=== PATIENT | male | born 1945 | race Caucasian/White ===

== ENCOUNTER 2022-03-12 08:51 | Outpatient (CLI) | payer MEDICARE, BC, SELFPAY ==
--- NOTE | 2022-03-12 09:15 | CRLHL7_ITS ---
For Patients: As a result of the Century Cures Act, medical imaging exams and procedure reports are released immediately into your electronic medical record. You may view this report before your referring provider. If you have questions, please contact your health care provider. INDICATION: Spondylolisthesis. TECHNIQUE : Lumbar spine MRI without contrast. The following sequences were obtained: Sagittal T1, T2 weighted and STIR sequences. Axial T1 and T2 weighted sequences. COMPARISON: None. FINDINGS : Five lumbar type vertebral bodies, with the last fully formed disc space designated as L5-S1. L1 chronic superior endplate compression fracture with moderate height loss. Bony bridging along the T12-L1 interspace. No recent compression fracture or marrow replacing process. Lower cord/conus signal is normal. The conus terminates at a normal location. No intradural lesion. Mild fatty atrophy of the posterior paraspinous muscles. Discs/Endplates: At L5-S1, mild disc height loss and disc desiccation. L1-2 thru L4-5, disc dehydration. Mild type 1 reactive marrow changes involving the anterior inferior L4 endplate. Findings at individual levels as follows: T12-L1: Mild disc bulge with slight underlying retropulsion results in thecal sac flattening. No spinal canal or neural foraminal stenosis. L1-2: Trace retrolisthesis. Mild disc bulge. No spinal canal or neural foraminal stenosis. L2-3: Mild disc bulge. No spinal canal or foraminal stenosis. L3-4: Mild disc bulge. No spinal canal or neural foraminal stenosis. L4-5: Mild disc bulge. Bilateral facet arthrosis. Mild bilateral neural foraminal stenosis. No spinal canal stenosis. L5-S1: Trace anterolisthesis. Mild disc bulge with overlying osteophytic ridging. Bilateral L5 pars defects. Mild bilateral neural foraminal stenosis. No spinal canal stenosis. Imaged SI joints: Bilateral arthrosis with joint space narrowing and anterior osteophyte formation. Imaged sacrum: Within normal limits. IMPRESSION: 1. L1 chronic superior endplate fracture with moderate height loss and ankylosis along the T12-L1 interspace. No recent compression fractures. 2. At L5-S1, trace anterolisthesis from chronic bilateral L5 pars defects. Mild bilateral neural foraminal stenosis. 3. No spinal canal/neural foraminal stenosis or impingement of neural structures elsewhere. Dictated by Tin Cintron MD @ 03/12/2022 2:53:10 PM (Electronically Signed)
== END 2022-03-12 08:52 | disposition home or self-care (01) ==
LOC: MRI 08:52
PROVIDERS: PCP Student in an Organized Health Care Education/Training Program; Visit Provider Student in an Organized Health Care Education/Training Program
DX: M43.16 Spondylolisthesis, lumbar region (principal); M51.25 Other intervertebral disc displacement, thoracolumbar region; M51.26 Other intervertebral disc displacement, lumbar region; M48.07 Spinal stenosis, lumbosacral region
CPT/HCPCS: 72148

== ENCOUNTER 2022-10-11 15:58 | Emergency (ER) | payer MEDICARE, BC, SELFPAY ==
[2022-10-11 16:07] VITALS: BP 153/91; PULSE 66; RESP 18; TEMP 36.6; O2SAT 96; BMI 44.6
--- NOTE | 2022-10-11 16:49 | CRLHL7_ITS ---
For Patients: As a result of the Cures Act, medical imaging exams and procedure reports are released immediately into your electronic medical record. You may view this report before your referring provider. If you have questions, please contact your health care provider. Indication: Table saw injury. Technique: Three views of the left hand. Comparison: None Findings/Impression: Comminuted tuft fractures of the 3rd and 4th digit distal phalanges. There are soft tissue defects compatible with lacerations at the tips of the 2nd and 3rd digits, and partial amputation of the tip of the 4th digit. Dictated by Jane May MD @ 10/11/2022 6:07:50 PM (Electronically Signed)
--- NOTE | 2022-10-11 17:34 | ED_ITS ---
HPI - General Adult General Chief complaint: Extremity Pain/Injury, Upper Stated complaint: Table saw injury to left hand 30mins ago Time Seen by Provider: 10/11/22 16:01 Source: patient Mode of arrival: ambulatory Limitations: no limitations History of Present Illness HPI narrative: 76-year-old male coming in today after signing off the tips of his fingers with a table saw. Denies any other injury. This occurred approximately 30 minutes prior to presentation. Tetanus shot is up-to-date. Patient is on Coumadin. Related Data Previous Rx's Medication Instructions Recorded amoxicillin 875 mg-potassium 1 tab PO BID #10 tabs 10/11/22 clavulanate 125 mg tablet Allergies Allergy/AdvReac Type Severity Reaction Status Date / Time ibuprofen Allergy Intermediate Hives Verified 10/11/22 16:25 phenytoin Allergy Mild Rash Verified 10/11/22 16:25 buspirone [From BuSpar] AdvReac Intermediate Blurry Verified 10/11/22 16:25 Vision citalopram AdvReac Intermediate Dizziness Verified 10/11/22 16:25 lisinopril AdvReac Intermediate Verified 10/11/22 16:25 metformin AdvReac Intermediate Diarrhea Verified 10/11/22 16:25 Review of Systems Status of ROS: Reports: 10 or more systems reviewed and unremarkable except as noted in History and below PFSH PFSH Social History Smoking Status: Unknown if ever smoked Do you use any of these nicotine containing products: None Second hand tobacco smoke exposure: No How often do you have a drink containing alcohol: never How often do you have six or more drinks on one occasion: Never AUDIT-C Alcohol total score: 0 Non-prescribed substance use: denies use service: No Exam Narrative: Exam Narrative: Well-nourished well-developed patient in no acute distress. Alert and oriented. Answers questions appropriately. Mood and affect are appropriate. Thoughts are goal oriented and rational. No tangential or magical thinking noted. Tennille ent speaks in full sentences without needing to catch his breath. HEENT: Normocephalic atraumatic. Pupils are equally round reactive to light. Extraocular muscles are intact. Conjunctivae are moist without any icterus noted. Moist mucous membranes. Extremities: Patient's left hand he has a laceration on the palmar surface of the 5th digit. Right above it he has an area of skin approximately 8 mm x 2 mm where the skin has been avulsed but the subcutaneous tissue is intact. And the very tip of that finger also has been avulsed. On his 3rd digit he has avulsed the tip of the finger into the subcutaneous tissue as well as part of his nail. There is no bone visible. It is oozing. He has a similar injury on the 4th digit, however this 1 takes a little bit more of the nail off. He has exposed subcutaneous tissue but no bone visible. Skin: Well perfused. Const: Vital Signs, click to edit/add: Vital Signs - 24 hr 10/11/22 16:07 Temperature 97.8 F Pulse Rate [Pulse Oximeter] 66 Respiratory Rate 18 Blood Pressure [Ri ght Upper Arm] 153/91 H Pulse Oximetry 96 Oxygen Delivery Me thod Room Air Course Course Hospital Course: Hand was soaked and wounds were cleansed a digital block was done on digits 2 3 and 4. All wounds were investigated. No foreign bodies were visualized. The laceration on the palmar surface of the 1st digit was sutured with 3-0 Ethilon. The remainder of the wounds on that finger could not be sutured. On the 2nd digit Surgicel was placed in wound was dressed. On the 3rd digit sutures were placed on the medial side of the tip of the finger were there was a piece of skin flap that was avulsed that was tacked down. Surgicel was also put on tip of this finger and dressed similarly to the 3rd digit. X-ray was done of the fingers: Showing tuft fractures of the 3rd and 4th digits Vital Signs Vital signs: Initial Vital Signs Temperature 97.8 F 10/11/22 16:07 Temperature Source Temporal Artery Scan 10/11/22 16:07 Pulse Rate 66 10/11/22 16:07 Respiratory Rate 18 10/11/22 16:07 Blood Pressure 153/91 H 10/11/22 16:07 Blood Pressure Mean 111 10/11/22 16:07 Pulse Oximetry 96 10/11/22 16:07 Oxygen Delivery Method Room Air 10/11/22 16:07 Vital Signs Temperature 97.8 F 10/11/22 16:07 Pulse Rate 66 10/11/22 16:07 Respiratory Rate 18 10/11/22 16:07 Blood Pressure 153/91 H 10/11/22 16:07 Pulse Oximetry 96 10/11/22 16:07 Oxygen Delivery Method Room Air 10/11/22 16:07 Temperature 97.8 F 10/11/22 16:07 Pulse Rate 66 10/11/22 16:07 Respiratory Rate 18 10/11/22 16:07 Blood Pressure 153/91 H 10/11/22 16:07 Pulse Oximetry 96 10/11/22 16:07 Oxygen Delivery Method Room Air 10/11/22 16:07 Medical Decision Making MDM Narrative Medical decision making narrative: 76-year-old male status post accident with a hand saw with avulsion of the tips of the 2nd 3rd and 4th digits, tuft fracture of 3rd and 4th digits. All frac tures closed again, no bony visualization with exploration of the wounds. Wounds were dressed per above. We will give patient information to make a follow-up appointment with a hand specialist up in the [facility]. We discussed wound hygiene. We will put him on Augmentin twice a day. Follow up with any signs of infection. Tetanus shot up-to-date. Imaging Data X-ray hand: Attestation: I have reviewed the pertinent imaging results. Radiologist's impression: Three views of the left hand. Comparison: None Findings/Impression: Comminuted tuft fractures of the 3rd and 4th digit distal phalanges. There are soft tissue defects compatible with lacerations at the tips of the 2nd and 3rd digits, and partial amputation of the tip of the 4th digit. Discharge Plan Discharge Clinical Impression: Closed fracture of tuft of distal phalanx of finger, Avulsion of finger tip Patient Disposition: Home, Self-Care Condition: Stable Additional Instructions: You will need to follow-up with a hand specialist, information will be provided to you. Change your dressings once per day, do not remove the piece of fabric that is adhering to the skin, this will fall off on its own. Sutures need to be removed from the pointer and ring finger in approximately 7-10 days. Watch for signs of infection which would include redness of the fingers or draining of pus, this occurs follow-up in the ER. Take all antibiotics as prescribed. Prescriptions: New amoxicillin-pot clavulanate 875-125 mg tablet 1 tab PO BID Qty: 10 0RF Follow Up/Referrals: TETE MAC DO [Primary Care Provider] - Stand Alone Forms: [employer] Info Instructions
== END 2022-10-11 18:47 | disposition home or self-care (01) ==
PROVIDERS: Emergency Provider Family Medicine; PCP Student in an Organized Health Care Education/Training Program
DX: S61.311A Laceration without foreign body of left index finger with damage to nail, initial encounter (principal); S61.313A Laceration without foreign body of left middle finger with damage to nail, initial encounter; S61.315A Laceration without foreign body of left ring finger with damage to nail, initial encounter; W31.2XXA Contact with powered woodworking and forming machines, initial encounter; S62.663A Nondisplaced fracture of distal phalanx of left middle finger, initial encounter for closed fracture; S62.665A Nondisplaced fracture of distal phalanx of left ring finger, initial encounter for closed fracture
CPT/HCPCS: 12001; 73130; 99283; 99284

== ENCOUNTER 2022-12-31 12:03 | Emergency (ER) | payer MEDICARE, BC, SELFPAY ==
[2022-12-31 12:09] VITALS: BP 124/72; PULSE 69; RESP 20; TEMP 36.8; O2SAT 94; BMI 41.3
--- NOTE | 2022-12-31 12:40 | ED.GENADULT ---
HPI - General Adult General Time Seen by Provider: 12:40 Date Seen: 12/31/22 Chief complaint: Dizziness/Vertigo Stated complaint: dizziness, INR left leg Time Seen by Provider: 12/31/22 12:07 Source: patient and RN notes reviewed Mode of arrival: ambulatory Limitations: no limitations History of Present Illness HPI narrative: Patient is a 77-year-old male coming in upon referral by clinic for worsening dizziness this morning as well as some left leg complaints of soreness. Patient was in clinic today, had his INR checked, is on chronic anticoagulation. He did physical therapy yesterday and they did do some massage. He noted that his calf was a little tender medially along the left lower leg. It moved from there up to medial knee area. He does note that he had cramps that were worse last night. These symptoms are in the setting of a total knee arthroplasty on October 28 of this year. Again, patient is anticoagulated but we do not know the INR. He has no chest pain, no respiratory symptoms such as shortness of breath with this. He does not know all of his medications. Well in clinic he also complained of increased dizziness today. He has a prescription for meclizine which he takes for this dizziness/lightheadedness. He does not describe this as a spinning or vertigo type sensation. He does feel that the meclizine typically helps but did not today. He is ambulating with a walker since his surgery, no falls, no trauma. 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 Denies any numbness tingling or weakness, no focal motor deficit such as stroke symptoms with this. He states at this time, this is starting to resolve. He admits when he has dizziness issues it will typically affect him more in the morning and will wane by the end of the day. Medications: Oxybutynin XL 5 mg daily Omeprazole 20 mg daily Ozempic 2 mg per dose, 2 mg subQ weekly Melatonin 5 mg at bedtime Metoprolol tartrate 50 mg b.i.d. Preserve vision vitamin daily Venlafaxine extended release 75 mg daily Coumadin Tamsulosin 0.4 mg daily Senna 8.6 mg b.i.d. Nasacort arcus 55 mcg nasal spray, 2 sprays each nostril daily Symbicort 160-4.5 mcg, 2 puffs b.i.d. Zyrtec 10 mg daily Calcium Albuterol p.r.n., inhaler Tylenol Atorvastatin 40 mg at bedtime Glucosamine chondroitin Meclizine Lorazepam 1 mg, 1/2 in the morning and 1 tablet at noon. Related Data Home Medications Medication Instructions Recorded Confirmed acetaminophen 650 mg 650 mg PO Q8H 12/31/22 12/31/22 tablet,extended release (Mapap Arthritis Pain) albuterol sulfate 90 mcg/actuation 1 - 2 puff inhalation Q4H PRN 12/31/22 12/31/22 aerosol inhaler atorvastatin 40 mg tablet 40 mg PO DAILY 12/31/22 12/31/22 budesonide-formoterol HFA 160 2 puff inhalation Q12H 12/31/22 12/31/22 mcg-4.5 mcg/actuation aerosol inhaler (Symbicort) calcium citrate 250 mg PO BID 12/31/22 12/31/22 cetirizine 10 mg tablet 10 mg PO DAILY 12/31/22 12/31/22 gabapentin 100 mg capsule 200 mg PO BID 12/31/22 12/31/22 glucosamine-chondroitin 500 mg-400 1 tab PO DAILY 12/31/22 12/31/22 mg tablet (Cosamin DS) lorazepam 1 mg tablet 0.5 mg PO BID 12/31/22 12/31/22 meclizine 25 mg tablet 25 mg PO TID PRN 12/31/22 12/31/22 melatonin 5 mg capsule 5 mg PO HS 12/31/22 12/31/22 metoprolol tartrate 50 mg tablet 50 mg PO BID 12/31/22 12/31/22 omeprazole 20 mg capsule,delayed 20 mg PO DAILY 12/31/22 12/31/22 release oxybutynin chloride 5 mg 5 mg PO DAILY 12/31/22 12/31/22 tablet,extended release 24 hr semaglutide 2 mg/dose (8 mg/3 mL) 2 mg subcut QWEEK 12/31/22 12/31/22 subcutaneous pen injector (Ozempic) sennosides 8.6 mg tablet (senna) 17.2 mg PO DAILY 12/31/22 12/31/22 tamsulosin 0.4 mg capsule 0.4 mg PO DAILY 12/31/22 12/31/22 triamcinolone acetonide 55 mcg 2 spray intranasal DAILY 12/31/22 12/31/22 nasal spray aerosol venlafaxine 75 mg capsule,extended 75 mg PO DAILY 12/31/22 12/31/22 release 24 hr warfarin 5 mg tablet 2.5 - 5 mg PO DAILY 12/31/22 12/31/22 Allergies Allergy/AdvReac Type Severity Reaction Status Date / Time ibuprofen Allergy Intermediate Hives Verified 12/31/22 12:11 phenytoin Allergy Mild Rash Verified 12/31/22 12:11 buspirone [From BuSpar] AdvReac Intermediate Blurry Verified 12/31/22 12:11 Vision citalopram AdvReac Intermediate Dizziness Verified 12/31/22 12:11 lisinopril AdvReac Intermediate Verified 12/31/22 12:11 metformin AdvReac Intermediate Diarrhea Verified 12/31/22 12:11 Review of Systems Status of ROS: Reports: 6 or more systems reviewed and unremarkable except as noted in History and below PFSH PFSH Social History Smoking Status: Unknown if ever smoked Do you use any of these nicotine containing products: None Second hand tobacco smoke exposure: No How often do you have a drink containing alcohol: never How often do you have six or more drinks on one occasion: Never AUDIT-C Alcohol total score: 0 Non-prescribed substance use: denies use service: No Exam Const: Vital Signs, click to edit/add: Vital Signs - 24 hr 12/31/22 12:09 12/31/22 14:19 Temperature 98.3 F Pulse Rate [Pulse Oximeter] 69 64 Respiratory Rate 20 20 Blood Pressure [Le ft Forearm] 133/86 Blood Pressure [Ri ght Upper Arm] 124/72 Pulse Oximetry 94 96 Oxygen Delivery Me thod Room Air Room Air Documenting provider has reviewed patient's vital signs: yes Common normals: no apparent distress, oriented x3, no limitations, alert and well nourished General appearance: cooperative, comfortable, well kempt and well developed Nutritional appearance: obese Other: Patient is sitting up on the edge of the exam bed. HENMT: Common normals: normocephalic, head/scalp atraumatic, hearing grossly normal bilaterally, external ears normal and external nose normal Head and scalp: normocephalic and atraumatic Face and sinus: normal facial exam Nose: external nose normal External ear: external ears normal Eye: Common normals: PERRL, EOMs intact bilaterally (No nystagmus noted), conjunctivae normal and no scleral icterus Conjunctiva: conjunctiva(e) normal Pupil: PERRL Neck & C-Spine: Common normals: full ROM, no lymphadenopathy and supple Resp: Common normals: normal respiratory effort, no retractions, no use of accessory muscles and clear to auscultation bilaterally Auscultation: clear to auscultation bilaterally Cardio: Common normals: regular rate, regular rhythm, S1 normal heart sound, S2 normal heart sound, no gallops, no clicks and no murmurs Rate: regular rate Rhythm: regular rhythm Heart sounds: S1 normal and S2 normal GI: Common normals: Normal to inspection, nondistended, normoactive bowel sounds present, soft to palpation and non-tender Palpation: soft Extremity: Other: Has no significant edema either lower extremity. See no visible ecchymosis or bruising along this left medial leg, no evidence of any visible hematoma. Has full range of motion of his knee, no joint effusion. The anterior scar is well healed. Normal sensation distally. Neuro: [place] Coma Scale: document GCS findings [place] coma scale eye opening: Spontaneous (4) [place] coma scale verbal response: Orientated (5) [place] coma scale motor response: Obey commands (6) [place] coma scale total score: 15 Common normals: oriented x3, CN's II-XII intact bilaterally, moves all extremities, no focal motor deficits and no sensory deficits noted Sensorium/orientation: alert Psych: Appearance: well kempt Course Course Hospital Course: Patient did check online and his INR is not even listed as pending. Thus, will update his INR and basic lab work here today. Discussed neuro imaging and ultrasound of his left lower extremity. If he has been therapeutic on anticoagulation for while, would be unlikely for him to have a DVT. Obviously this is their concern. Will have him on pulse oximetry, obtain EKG. He agrees to head CT and ultrasound of his extremity. It is possible he could have hematoma or bleed within the tissues of this leg. He may just be sore from the physical therapy yesterday. As far as his dizziness, this is resolving without intervention. Did advise that we should just consider noncontrast head CT which she does agree with. They do tell me that he has went through a dizzy and balance physical therapy program before. They may want to consider this again. Did discuss that meclizine works best in patients with true vertigo which I am not sure he is exhibiting. These are all things that they may need to follow up and work with through their primary care provider. Reevaluation(s) Time of Reevaluation #1: 15:16 Reevaluation #1: Reviewed no acute findings on head CT, no dvt on us. INR in clinic today was 2.2, his here was 1.82. He will call them. He had concerns regarding his dizzy spells and that they come back. Reviewed with him that we do not have anything that will prevent this that I am aware of. Do recommend going back to physical therapy specializing in dizziness. Vital Signs Vital signs: Initial Vital Signs Temperature 98.3 F 12/31/22 12:09 Temperature Source Temporal Artery Scan 12/31/22 12:09 Pulse Rate 69 12/31/22 12:09 Respiratory Rate 20 12/31/22 12:09 Blood Pressure 124/72 12/31/22 12:09 Blood Pressure Mean 89 12/31/22 12:09 Blood Pressure Position Sitting 12/31/22 12:09 Pulse Oximetry 94 12/31/22 12:09 Oxygen Delivery Method Room Air 12/31/22 12:09 Vital Signs Temperature 98.3 F 12/31/22 12:09 Pulse Rate 69 12/31/22 12:09 Respiratory Rate 20 12/31/22 12:09 Blood Pressure 124/72 12/31/22 12:09 Pulse Oximetry 94 12/31/22 12:09 Oxygen Delivery Method Room Air 12/31/22 12:09 Temperature 98.3 F 12/31/22 12:09 Pulse Rate 64 12/31/22 14:19 Respiratory Rate 20 12/31/22 14:19 Blood Pressure 133/86 12/31/22 14:19 Pulse Oximetry 96 12/31/22 14:19 Oxygen Delivery Method Room Air 12/31/22 14:19 Medical Decision Making Lab Data Lab results reviewed: Yes I reviewed the patient's lab results Labs: Lab Results 12/31/22 Range/Units 13:28 WBC 6.80 (4.50-11.00) K/uL RBC 3.80 L (4.30-5.90) m/uL Hgb 12.1 L (13.5-17.5) gm/dL Hct 37.7 (37.0-53.0) % MCV 99 (80-100) fL MCH 32 (26-34) pg MCHC 32 (32-36) gm/dL RDW Coeff of Isela 13.2 (11.5-15.5) % Plt Count 217 (140-440) K/uL Neut % (Auto) 62.7 (42.0-72.0) % Lymph % (Auto) 19.9 L (20-44) % Henderson % (Auto) 15.6 H (0.0-11.0) % Eos % (Auto) 1.3 (0.0-7.0) % Baso % (Auto) 0.4 (0.0-3.0) % Neut # (Auto) 4.26 (1.7-7.0) K/uL Lymph # (Auto) 1.40 (0.90-2.90) K/uL Henderson # (Auto) 1.10 H (0.00-0.90) K/UL Eos # (Auto) 0.09 (0.00-0.50) K/uL Baso # (Auto) 0.03 (0.00-0.30) K/uL Abs Immat Gran (auto) 0.01 (0.00-0.30) K/uL Imm/Tot Granulo (auto) 0.1 % INR 1.82 H (0.91-1.10) Sodium 140 (135-149) mmol/L Potassium 4.3 (3.6-5.1) mmol/L Chloride 103 (96-114) mmol/L Carbon Dioxide 30 (20-32) mmol/L BUN 14 (7-30) mg/dL Creatinine 0.8 (0.5-1.5) mg/dL Estimated Creat Clear 62.84 Estimated GFR 92 ml/min Glucose 86 (60-115) mg/dL Calcium 9.6 (8.4-10.6) mg/dL Total Bilirubin 0.4 (0.1-1.5) mg/dL AST 45 H (12-35) U/L ALT 26 (4-50) U/L Alkaline Phosphatase 95 (40-150) U/L Total Protein 7.7 (6.0-8.3) g/dL Albumin 4.2 (3.3-5.0) g/dL Imaging Data CT scan - head: Attestation: I have reviewed the pertinent imaging results. Radiologist's impression: Patient: RADHA GÓMEZ Facility:?[facility] Patient ID:?[id number] Site Patient ID:?[id number]. Site :?[id number] Study:?CT Head WITHOUT-12/31/2022 2:29:51 PM Ordering Physician:?Sky Lundberg Final Report: Indication: Increasing dizziness Technique: Volumetric multidetector CT images of the head were obtained without the administration of low osmolar intravenous contrast. Comparison: None available Findings: There is no intra-axial or extra-axial fluid collection. There is no mass effect or midline shift. There is age-related cortical atrophy with mild sulcal widening and ex vacuo dilatation of the lateral ventricles. There are chronic small vessel disease changes in the subcortical and periventricular white matter without lost marsh-white differentiation. The orbits and their contents are grossly within normal limits. There are vinh holes seen within the bilateral cerebral convexity calvarium. The paranasal sinuses are clear. The mastoid air cells are well aerated. Impression: Age-related and chronic small-vessel disease changes of the brain without acute intracranial abnormality. Please note that all CT scans at this facility use dose modulation, iterative reconstruction, and/or weight-based dosing when appropriate to reduce radiation dose to as low as reasonably achievable. Dictated by Hitesh Rm MD @ 12/31/2022 2:54:42 PM (Electronic Signature) Venous US: Attestation: I have reviewed the pertinent imaging results. Radiologist's impression: Patient: RADHA GÓMEZ Facility:?[facility] Patient ID:?[id number] Site Patient ID:?[id number]. Site :?[id number] Study:?US Extremity Left LEV-12/31/2022 2:40:43 PM Ordering Physician:Rodney Lundberg Final Report: INDICATION: Left calf pain, total knee arthroplasty 2 months prior. TECHNIQUE: Ultrasound venous duplex lower left extremity. Compression venous exam was performed using marsh-scale, color Doppler, and spectral Doppler analysis. COMPARISON: None. FINDINGS: Sonographic imaging demonstrates the left common femoral, deep femoral, superficial femoral, popliteal, posterior tibial and greater saphenous and the contralateral right common femoral veins to be fully compressible with normal color Doppler blood flow. IMPRESSION: Normal left lower extremity venous ultrasound, no sign of deep venous thrombosis. Dictated by Robert Arias MD @ 12/31/2022 3:04:11 PM (Electronic Signature) ECG Data Attestation: I personally reviewed and interpreted this ECG as follows: (Sinus rhythm with first-degree AV block, 63 beats per minute. No ischemia noted, QT corrected 417 milliseconds.) Prior ECG tracings: not available for review Discharge Plan Discharge Clinical Impression: Dizziness, Pain of left calf Patient Disposition: Home, Self-Care Condition: Stable Instructions: Leg Cramps (ED), Dizziness (ED), Leg Pain (ED) Additional Instructions: INR here today was 1.82. Please confer with your clinic as to recommendations for Coumadin dosing. There was no evidence of DVT on the ultrasound. Head CT is showing no acute changes. Dizziness can be a chronic and recurrent problem. It remains unclear to me if your actually experiencing vertigo verses dizziness. I would recommend referral back to a physical therapy program specializing in dizziness. Talk to your primary care provider further about this. Recommend follow-up with primary care provider within the next week. Prescriptions: No Action oxybutynin chloride 5 mg tablet extended release 24hr 5 mg PO DAILY omeprazole 20 mg capsule,delayed release(DR/EC) 20 mg PO DAILY Ozempic 2 mg/dose (8 mg/3 mL) pen injector 2 mg subcut QWEEK melatonin 5 mg capsule 5 mg PO HS venlafaxine 75 mg capsule,extended release 24hr 75 mg PO DAILY warfarin 5 mg tablet 2.5 - 5 mg PO DAILY Rx Instructions: Take 5mg Mon, Fri, 2.5mg all other days. metoprolol tartrate 50 mg tablet 50 mg PO BID tamsulosin 0.4 mg capsule 0.4 mg PO DAILY sennosides [senna] 8.6 mg tablet 17.2 mg PO DAILY budesonide-formoterol [Symbicort] 160-4.5 mcg/actuation HFA aerosol inhaler 2 puff inhalation Q12H triamcinolone acetonide 55 mcg aerosol,spray 2 spray intranasal DAILY Rx Instructions: administer into each nostril cetirizine 10 mg tablet 10 mg PO DAILY albuterol sulfate 90 mcg/actuation HFA aerosol inhaler 1 - 2 puff INHALATION Q4H PRN calcium citrate 250 mg calcium tablet 250 mg PO BID acetaminophen [Mapap Arthritis Pain] 650 mg tablet extended release 650 mg PO Q8H atorvastatin 40 mg tablet 40 mg PO DAILY glucosamine-chondroitin [Cosamin DS] 500-400 mg tablet 1 tab PO DAILY meclizine 25 mg tablet 25 mg PO TID PRN lorazepam 1 mg tablet 0.5 mg PO BID gabapentin 100 mg capsule 200 mg PO BID Follow Up/Referrals: TETE MAC DO [Primary Care Provider] - Stand Alone Forms: [facility] Info Instructions
--- NOTE | 2022-12-31 13:08 | CRLHL7_ITS ---
For Patients: As a result of the Century Cures Act, medical imaging exams and procedure reports are released immediately into your electronic medical record. You may view this report before your referring provider. If you have questions, please contact your health care provider. INDICATION: Left calf pain, total knee arthroplasty 2 months prior. TECHNIQUE: Ultrasound venous duplex lower left extremity. Compression venous exam was performed using marsh-scale, color Doppler, and spectral Doppler analysis. COMPARISON: None. FINDINGS: Sonographic imaging demonstrates the left common femoral, deep femoral, superficial femoral, popliteal, posterior tibial and greater saphenous and the contralateral right common femoral veins to be fully compressible with normal color Doppler blood flow. IMPRESSION: Normal left lower extremity venous ultrasound, no sign of deep venous thrombosis. Dictated by Robert Arias MD @ 12/31/2022 3:04:11 PM (Electronically Signed)
--- NOTE | 2022-12-31 13:09 | CRLHL7_ITS ---
For Patients: As a result of the Century Cures Act, medical imaging exams and procedure reports are released immediately into your electronic medical record. You may view this report before your referring provider. If you have questions, please contact your health care provider. Indication: Increasing dizziness Technique: Volumetric multidetector CT images of the head were obtained without the administration of low osmolar intravenous contrast. Comparison: None available Findings: There is no intra-axial or extra-axial fluid collection. There is no mass effect or midline shift. There is age-related cortical atrophy with mild sulcal widening and ex vacuo dilatation of the lateral ventricles. There are chronic small vessel disease changes in the subcortical and periventricular white matter without lost marsh-white differentiation. The orbits and their contents are grossly within normal limits. There are vinh holes seen within the bilateral cerebral convexity calvarium. The paranasal sinuses are clear. The mastoid air cells are well aerated. Impression: Age-related and chronic small-vessel disease changes of the brain without acute intracranial abnormality. Please note that all CT scans at this facility use dose modulation, iterative reconstruction, and/or weight-based dosing when appropriate to reduce radiation dose to as low as reasonably achievable. Dictated by Hitesh Rm MD @ 12/31/2022 2:54:42 PM (Electronically Signed)
[2022-12-31 13:37] LABS: Basophils Absolute Auto 0.03 K/uL (0.00-0.30); Basophils Percent Auto 0.4 % (0.0-3.0); Eosinophils Absolute Auto 0.09 K/uL (0.00-0.50); Eosinophils Percent Auto 1.3 % (0.0-7.0); Hematocrit 37.7 % (37.0-53.0); Hemoglobin* 12.1 gm/dL (13.5-17.5); Immature Granulocytes Abs Auto 0.01 K/uL (0.00-0.30); Immature Granulocytes Pct Auto 0.1 %; Lymphocytes Percent Auto 19.9 % (20-44); Mean Corpuscular HGB Conc 32 gm/dL (32-36); Mean Corpuscular Hemoglobin 32 pg (26-34); Mean Corpuscular Volume 99 fL (80-100); Monocytes Percent Auto 15.6 % (0.0-11.0); Neutrophils Absolute Auto 4.26 K/uL (1.7-7.0); Neutrophils Percent Auto 62.7 % (42.0-72.0); Platelet Count* 217 K/uL (140-440); RDW Coefficient of Variation % 13.2 % (11.5-15.5)
[2022-12-31 13:45] LABS: Slide Review Reflex No
[2022-12-31 13:53] LABS: Albumin* 4.2 g/dL (3.3-5.0); Chloride* 103 mmol/L (96-114); Potassium* 4.3 mmol/L (3.6-5.1); Sodium* 140 mmol/L (135-149)
[2022-12-31 13:55] LABS: Aspartate Amino Transferase* 45 U/L (12-35); Bilirubin Total* 0.4 mg/dL (0.1-1.5); Carbon Dioxide* 30 mmol/L (20-32); Creatinine* 0.8 mg/dL (0.5-1.5); Est. Creatinine Clearance* 62.84; Estimated Glomerular Filt Rate 92 ml/min; Total Protein* 7.7 g/dL (6.0-8.3)
[2022-12-31 13:56] LABS: Alanine Aminotransferase* 26 U/L (4-50); Alkaline Phosphatase* 95 U/L (40-150); Blood Urea Nitrogen* 14 mg/dL (7-30); Calcium* 9.6 mg/dL (8.4-10.6); Glucose* 86 mg/dL (60-115)
[2022-12-31 13:58] LABS: INR 1.82 (0.91-1.10); Prothrombin Time 22.1 Seconds
[2022-12-31 14:19] VITALS: BP 133/86; PULSE 64; RESP 20; O2SAT 96
== END 2022-12-31 15:35 | disposition home or self-care (01) ==
PROVIDERS: Emergency Provider Family Medicine; PCP Student in an Organized Health Care Education/Training Program
DX: R42 Dizziness and giddiness (principal); M79.662 Pain in left lower leg
CPT/HCPCS: 36415; 70450; 80053; 85025; 85610; 93005; 93971; 94761; 99284; 99285

== ENCOUNTER 2023-02-22 12:56 | Emergency (ER) | payer MEDICARE, BC, SELFPAY ==
[2023-02-22 13:19] VITALS: BP 85/51; PULSE 73; RESP 16; TEMP 36.2; O2SAT 93
[2023-02-22 14:00] VITALS: BP 113/49; PULSE 69; O2SAT 93
[2023-02-22 14:15] VITALS: BP 119/47; PULSE 68; O2SAT 95
[2023-02-22 14:30] VITALS: BP 116/57; PULSE 71; O2SAT 94
[2023-02-22 14:45] VITALS: BP 128/62; PULSE 69; O2SAT 94
--- NOTE | 2023-02-22 14:57 | ED_ITS ---
HPI - General Adult General Chief complaint: Dizziness/Vertigo History of Present Illness HPI narrative: This 77-year-old male was at physical therapy today and was noted to have low blood pressure at 1 point being 85/51. Upon arrival here to the emergency department his blood pressures around 120 for systolic value. Patient has not had any chest pain. He states that he has been having some lightheadedness which occurs more often in the morning and seems to get better as the day p rogresses. Just prior to arrival here his primary physician called him and stated that he should discontinue his metoprolol. He takes metoprolol tartrate 25 mg twice daily. He is not on any other blood pressure medications. He feels back to normal at this time. Related Data Home Medications Medication Instructions Recorded Confirmed albuterol sulfate 90 mcg/actuation 1 - 2 puff inhalation Q4H PRN 12/31/22 02/22/23 aerosol inhaler atorvastatin 40 mg tablet 40 mg PO DAILY 12/31/22 02/22/23 budesonide-formoterol HFA 160 2 puff inhalation Q12H 12/31/22 02/22/23 mcg-4.5 mcg/actuation aerosol inhaler (Symbicort) calcium citrate 250 mg PO BID 12/31/22 02/22/23 cetirizine 10 mg tablet 10 mg PO DAILY 12/31/22 02/22/23 gabapentin 100 mg capsule 200 mg PO BID 12/31/22 12/31/22 glucosamine-chondroitin 500 mg-400 1 tab PO DAILY 12/31/22 12/31/22 mg tablet (Cosamin DS) lorazepam 1 mg tablet 0.5 mg PO BID 12/31/22 02/22/23 meclizine 25 mg tablet 25 mg PO TID PRN 12/31/22 02/22/23 melatonin 5 mg capsule 5 mg PO HS 12/31/22 02/22/23 omeprazole 20 mg capsule,delayed 20 mg PO DAILY 12/31/22 02/22/23 release oxybutynin chloride 5 mg 5 mg PO DAILY 12/31/22 02/22/23 tablet,extended release 24 hr semaglutide 2 mg/dose (8 mg/3 mL) 2 mg subcut QWEEK 12/31/22 02/22/23 subcutaneous pen injector (Ozempic) sennosides 8.6 mg tablet (senna) 17.2 mg PO DAILY 12/31/22 02/22/23 tamsulosin 0.4 mg capsule 0.4 mg PO DAILY 12/31/22 02/22/23 venlafaxine 75 mg capsule,extended 75 mg PO DAILY 12/31/22 02/22/23 release 24 hr warfarin 5 mg tablet 2.5 - 5 mg PO DAILY 12/31/22 02/22/23 Allergies Allergy/AdvReac Type Severity Reaction Status Date / Time ibuprofen Allergy Intermediate Hives Verified 02/22/23 14:36 phenytoin Allergy Mild Rash Verified 02/22/23 14:36 buspirone [From BuSpar] AdvReac Intermediate Blurry Verified 02/22/23 14:36 Vision citalopram AdvReac Intermediate Dizziness Verified 02/22/23 14:36 lisinopril AdvReac Intermediate Verified 02/22/23 14:36 metformin AdvReac Intermediate Diarrhea Verified 02/22/23 14:36 Review of Systems Status of ROS: Reports: 10 or more systems reviewed and unremarkable except as noted in History and below Narrative: Constitutional: No fevers, no weight gain or loss. Eyes: No discharge. No vision changes. HENT: No congestion, no sore throat, no ear pain. Cardiovascular: No chest pain, no palpitations. Respiratory: No shortness of breath, no wheezes, no cough. Gastrointestinal: No abdominal pain, no vomiting, no diarrhea. Genitourinary: No dysuria, no hematuria. Musculoskeletal: Normal range of motion. Skin: No rashes, no pruritis. Neurological: No weakness, sensory change, speech change. Lightheadedness symptoms as described above. Endo/Heme/Allergies: No bruising or bleeding. No polydipsia. Pysch: no suicidality, no anxiety, no insomnia. All other systems reviewed and are negative. [facility] Social History Smoking Status: Unknown if ever smoked Do you use any of these nicotine containing products: None Second hand tobacco smoke exposure: No How often do you have a drink containing alcohol: never How often do you have six or more drinks on one occasion: Never AUDIT-C Alcohol total score: 0 Non-prescribed substance use: denies use service: No Exam Narrative: Exam Narrative: Constitutional: Well-developed, well-nourished, no acute distress. HEENT: Normocephalic, atraumatic. Neck: Normal range of motion. Nontender. Supple. Heart: Regular. No murmurs. Normal rate. Intact distal pulses. Lungs: Clear to auscultation. No chest discomfort. No wheezes, rhonchi, or rales. Abdomen: Normal bowel sounds. Nontender. No rebound tenderness. Genitalia: Deferred. Back: No midline tenderness. Normal range of motion. Extremities: Normal range of motion. No injury. Skin: Intact. No rash. Warm. No erythema or pallor. Neurologic: No altered sensation. No weakness. Alert and oriented. Psychiatric: No suicidality. No anxiety or depression. No insomnia. Nursing notes and vitals signs are reviewed. Const: Vital Signs, click to edit/add: Vital Signs - 24 hr 02/22/23 13:19 Temperature 97.2 F L Pulse Rate [Pulse Oximeter] 73 Respiratory Rate 16 Blood Pressure [Ri ght Upper Arm] 85/51 L Pulse Oximetry 93 Oxygen Delivery Me thod Room Air Course Vital Signs Vital signs: Initial Vital Signs Temperature 97.2 F L 02/22/23 13:19 Temperature Source Temporal Artery Scan 02/22/23 13:19 Pulse Rate 73 02/22/23 13:19 Pulse Rhythm Regular 02/22/23 13:19 Respiratory Rate 16 02/22/23 13:19 Blood Pressure 85/51 L 02/22/23 13:19 Blood Pressure Mean 62 L 02/22/23 13:19 Blood Pressure Position Sitting 02/22/23 13:19 Pulse Oximetry 93 02/22/23 13:19 Oxygen Delivery Method Room Air 02/22/23 13:19 Vital Signs Temperature 97.2 F L 02/22/23 13:19 Pulse Rate 73 02/22/23 13:19 Respiratory Rate 16 02/22/23 13:19 Blood Pressure 85/51 L 02/22/23 13:19 Pulse Oximetry 93 02/22/23 13:19 Oxygen Delivery Method Room Air 02/22/23 13:19 Temperature 97.2 F L 02/22/23 13:19 Pulse Rate 73 02/22/23 13:19 Respiratory Rate 16 02/22/23 13:19 Blood Pressure 85/51 L 02/22/23 13:19 Pulse Oximetry 93 02/22/23 13:19 Oxygen Delivery Method Room Air 02/22/23 13:19 Medical Decision Making MDM Narrative Medical decision making narrative: This patient comes in for evaluation of low blood pressure. Initially his pressure was rather low at 85 over 51. At the time of my visit his systolic blood pressures in the 120s. I did review his previous visit here which occurred about a month and a half ago. He had been taking meclizine for dizziness. His dizziness however was not vertigo but rather lightheadedness. He reported then that he felt more lightheadedness in the morning and it seemed to improve as the day progressed. These are typical symptoms of hypotension related to too much medication. The only antihypertensive medication the patient is taking his metoprolol. He did take this medicine this morning but will discontinue it and recheck his blood pressure and follow-up with his primary physician for to review medications. I did review the patient's labs and imaging studies that were done in his previous visit. I had discussed these findings with the patient today and indicated they option of repeating any of these studies. In a process of shared decision making this was declined. The patient's symptoms are likely related to adverse effects of metoprolol. Discharge Plan Discharge Clinical Impression: Hypotension due to medication Patient Disposition: Home, Self-Care Condition: Improved Additional Instructions: Hold metoprolol. Recheck blood pressures and record them for a follow-up visit with primary physician. Return if symptoms are recurrent or worsening. Prescriptions: No Action oxybutynin chloride 5 mg tablet extended release 24hr 5 mg PO DAILY omeprazole 20 mg capsule,delayed release(DR/EC) 20 mg PO DAILY Ozempic 2 mg/dose (8 mg/3 mL) pen injector 2 mg subcut QWEEK melatonin 5 mg capsule 5 mg PO HS venlafaxine 75 mg capsule,extended release 24hr 75 mg PO DAILY warfarin 5 mg tablet 2.5 - 5 mg PO DAILY Rx Instructions: Take 5mg Mon, Fri, 2.5mg all other days. tamsulosin 0.4 mg capsule 0.4 mg PO DAILY sennosides [senna] 8.6 mg tablet 17.2 mg PO DAILY budesonide-formoterol [Symbicort] 160-4.5 mcg/actuation HFA aerosol inhaler 2 puff inhalation Q12H cetirizine 10 mg tablet 10 mg PO DAILY albuterol sulfate 90 mcg/actuation HFA aerosol inhaler 1 - 2 puff INHALATION Q4H PRN calcium citrate 250 mg calcium tablet 250 mg PO BID atorvastatin 40 mg tablet 40 mg PO DAILY glucosamine-chondroitin [Cosamin DS] 500-400 mg tablet 1 tab PO DAILY meclizine 25 mg tablet 25 mg PO TID PRN lorazepam 1 mg tablet 0.5 mg PO BID gabapentin 100 mg capsule 200 mg PO BID Follow Up/Referrals: TETE MAC DO [Primary Care Provider] - Stand Alone Forms: [facility] Info Instructions
== END 2023-02-22 15:12 | disposition home or self-care (01) ==
PROVIDERS: Emergency Provider Emergency Medicine Emergency Medical Services; PCP Student in an Organized Health Care Education/Training Program
DX: I95.2 Hypotension due to drugs (principal); T46.4X5A Adverse effect of angiotensin-converting-enzyme inhibitors, initial encounter
CPT/HCPCS: 93005; 97110; 97530; 99284

== ENCOUNTER 2023-03-18 10:45 | Outpatient (RCR) | payer MEDICARE, BC, SELFPAY | END 2023-05-07 10:13 | disposition home or self-care (01) | PROVIDERS: PCP Student in an Organized Health Care Education/Training Program; Visit Provider Orthopaedic Surgery | DX: Z96.652 Presence of left artificial knee joint (principal); Z51.89 Encounter for other specified aftercare | CPT/HCPCS: 97110; 97140; 97162; 97530; 97535 ==

== ENCOUNTER 2023-03-24 08:01 | Outpatient (CLI) | payer MEDICARE, BC, SELFPAY | END 2023-03-24 08:02 | disposition home or self-care (01) | LOC: AMB 03-27 14:10 | PROVIDERS: PCP Student in an Organized Health Care Education/Training Program; Visit Provider Emergency Medicine Emergency Medical Services | DX: R07.89 Other chest pain (principal) | CPT/HCPCS: A0425; A0427 ==

== ENCOUNTER 2023-03-24 08:51 | Emergency (ER) | payer MEDICARE, BC, SELFPAY ==
[2023-03-24] VITALS (13 sets, daily range): BP systolic 94–121; BP diastolic 54–81; PULSE 91–108; RESP 24; TEMP 36.9; O2SAT 92–94; BMI 40.2
--- NOTE | 2023-03-24 09:27 | ED.CHESTPAIN ---
HPI - Chest Pain General Chief Complaint: Chest Pain Stated Complaint: Chest pain Time Seen by Provider: 03/24/23 09:04 History of Present Illness HPI narrative: This 77-year-old male comes in reporting some pain along the left sternal border that occurred this morning when he was laying in bed. He states that the pain was worse on use attempting to get up. He also reports that this pain is reproducible when taking a deep breath. He does not report any nausea, vomiting, shortness of breath, or diaphoresis. He is on warfarin for history of blood clot and paroxysmal atrial fibrillation. He does not report any recent injury event or strenuous activity. He states that he tolerates his regular activities normally. He reports that he just finished wearing a heart monitor. He also states that his recently was positive for COVID but did have a negative test more recently. Related Data Home Medications Medication Instructions Recorded Confirmed albuterol sulfate 90 mcg/actuation 1 - 2 puff inhalation Q4H PRN 12/31/22 02/22/23 aerosol inhaler atorvastatin 40 mg tablet 40 mg PO DAILY 12/31/22 02/22/23 budesonide-formoterol HFA 160 2 puff inhalation Q12H 12/31/22 02/22/23 mcg-4.5 mcg/actuation aerosol inhaler (Symbicort) calcium citrate 250 mg PO BID 12/31/22 02/22/23 cetirizine 10 mg tablet 10 mg PO DAILY 12/31/22 02/22/23 gabapentin 100 mg capsule 200 mg PO BID 12/31/22 12/31/22 glucosamine-chondroitin 500 mg-400 1 tab PO DAILY 12/31/22 12/31/22 mg tablet (Cosamin DS) lorazepam 1 mg tablet 0.5 mg PO BID 12/31/22 02/22/23 meclizine 25 mg tablet 25 mg PO TID PRN 12/31/22 02/22/23 melatonin 5 mg capsule 5 mg PO HS 12/31/22 02/22/23 omeprazole 20 mg capsule,delayed 20 mg PO DAILY 12/31/22 02/22/23 release oxybutynin chloride 5 mg 5 mg PO DAILY 12/31/22 02/22/23 tablet,extended release 24 hr semaglutide 2 mg/dose (8 mg/3 mL) 2 mg subcut QWEEK 12/31/22 02/22/23 subcutaneous pen injector (Ozempic) sennosides 8.6 mg tablet (senna) 17.2 mg PO DAILY 12/31/22 02/22/23 tamsulosin 0.4 mg capsule 0.4 mg PO DAILY 12/31/22 02/22/23 venlafaxine 75 mg capsule,extended 75 mg PO DAILY 12/31/22 02/22/23 release 24 hr warfarin 5 mg tablet 2.5 - 5 mg PO DAILY 12/31/22 02/22/23 Previous Rx's Medication Instructions Recorded nirmatrelvir 300 mg (150 mg See Rx Instructions PO .COMPLEX 03/24/23 x2)-ritonavir 100 mg tablet,dose #30 ea pack (Paxlovid) Allergies Allergy/AdvReac Type Severity Reaction Status Date / Time ibuprofen Allergy Intermediate Hives Verified 02/22/23 14:36 phenytoin Allergy Mild Rash Verified 02/22/23 14:36 buspirone [From BuSpar] AdvReac Intermediate Blurry Verified 02/22/23 14:36 Vision citalopram AdvReac Intermediate Dizziness Verified 02/22/23 14:36 lisinopril AdvReac Intermediate Verified 02/22/23 14:36 metformin AdvReac Intermediate Diarrhea Verified 02/22/23 14:36 Review of Systems Status of ROS Reports: 10 or more systems reviewed and unremarkable except as noted in History and below Narrative Constitutional: No fevers, no weight gain or loss. Eyes: No discharge. No vision changes. HENT: No congestion, no sore throat, no ear pain. Cardiovascular: No palpitations. Respiratory: No shortness of breath, no wheezes, no cough. Gastrointestinal: No abdominal pain, no vomiting, no diarrhea. Genitourinary: No dysuria, no hematuria. Musculoskeletal: Normal range of motion. Skin: No rashes, no pruritis. Neurological: No dizziness, weakness, sensory change, speech change. Endo/Heme/Allergies: No bruising or bleeding. No polydipsia. Pysch: no suicidality, no anxiety, no insomnia. All other systems reviewed and are negative. [facility] Social History Smoking Status: Former smoker What tobacco products do you use: cigarettes Years smoked: 37 Smoking quit date/years: >15 years ago Do you use any of these nicotine containing products: None Second hand tobacco smoke exposure: No How often do you have a drink containing alcohol: never How often do you have six or more drinks on one occasion: Never AUDIT-C Alcohol total score: 0 Non-prescribed substance use: denies use service: No Exam Narrative Exam Narrative: Constitutional: Well-developed, well-nourished, no acute distress. HEENT: Normocephalic, atraumatic. Neck: Normal range of motion. Nontender. Supple. Heart: Regular. No murmurs. Normal rate. Intact distal pulses. Lungs: Clear to auscultation. No wheezes, rhonchi, or rales. Chest discomfort along the left sternal border is reproducible when taking a deep breath. Abdomen: Normal bowel sounds. Nontender. No rebound tenderness. Genitalia: Deferred. Back: No midline tenderness. Normal range of motion. Extremities: Normal range of motion. No injury. Skin: Intact. No rash. Warm. No erythema or pallor. Neurologic: No altered sensation. No weakness. Alert and oriented. Psychiatric: No suicidality. No anxiety or depression. No insomnia. Nursing notes and vitals signs are reviewed. Const Vital Signs, click to edit/add: Vital Signs - 24 hr 03/24/23 08:57 03/24/23 09:32 03/24/23 09:33 Temperature 98.4 F Pulse Rate 101 H 108 H Pulse Rate [Pulse Oximeter] 100 Respiratory Rate 24 Blood Pressure 118/69 Blood Pressure [Right Upper Arm] 112/81 Pulse Oximetry 92 94 93 Oxygen Delivery Method Room Air 03/24/23 09:45 03/24/23 10:00 03/24/23 10:02 Temperature Pulse Rate 102 H 98 96 Pulse Rate [Pulse Oximeter] Respiratory Rate Blood Pressure 120/60 Blood Pressure [Right Upper Arm] Pulse Oximetry 93 94 93 Oxygen Delivery Method 03/24/23 10:15 03/24/23 10:30 03/24/23 10:33 Temperature Pulse Rate 103 H 107 H 103 H Pulse Rate [Pulse Oximeter] Respiratory Rate Blood Pressure 121/62 Blood Pressure [Right Upper Arm] Pulse Oximetry 92 93 93 Oxygen Delivery Method Course Vital Signs Vital signs: Initial Vital Signs Temperature 98.4 F 03/24/23 08:57 Temperature Source Temporal Artery Scan 03/24/23 08:57 Pulse Rate 100 03/24/23 08:57 Pulse Rhythm Regular 03/24/23 08:57 Respiratory Rate 24 03/24/23 08:57 Blood Pressure 112/81 03/24/23 08:57 Blood Pressure Mean 91 03/24/23 08:57 Blood Pressure Position Supine 03/24/23 08:57 Pulse Oximetry 92 03/24/23 08:57 Oxygen Delivery Method Room Air 03/24/23 08:57 Vital Signs Temperature 98.4 F 03/24/23 08:57 Pulse Rate 100 03/24/23 08:57 Respiratory Rate 24 03/24/23 08:57 Blood Pressure 112/81 03/24/23 08:57 Pulse Oximetry 92 03/24/23 08:57 Oxygen Delivery Method Room Air 03/24/23 08:57 Temperature 98.4 F 03/24/23 08:57 Pulse Rate 103 H 03/24/23 10:33 Respiratory Rate 24 03/24/23 08:57 Blood Pressure 121/62 03/24/23 10:33 Pulse Oximetry 93 03/24/23 10:33 Oxygen Delivery Method Room Air 03/24/23 08:57 MDM - Chest Pain MDM Narrative Medical decision making narrative: This patient comes in with reproducible chest discomfort along the left sternal border. His EKG shows normal sinus rhythm. On the monitor he is showing some bigeminy episodes. He did recently wear a heart monitor. Today his vital signs returned with reassuring results and his troponin is 0. His chest discomfort is likely chest wall pain. He does not have any other specific symptoms but does have positive results for COVID. The patient has normal vital signs and is not showing any sign of respiratory distress or symptoms. He is okay to return home. I did discuss benefits and risks for taking Paxil of it. He is on Lipitor and tamsulosin and would need to stop these medicines when taking Paxlovid. The patient is agreeable to this plan so I did provide a prescription for Paxlovid. Lab Data Labs: Lab Results 03/24/23 03/24/23 Range/Units 08:53 09:40 WBC 8.30 (4.50-11.00) K/uL RBC 3.74 L (4.30-5.90) m/uL Hgb 11.5 L (13.5-17.5) gm/dL Hct 35.3 L (37.0-53.0) % MCV 94 (80-100) fL MCH 31 (26-34) pg MCHC 33 (32-36) gm/dL RDW Coeff of Isela 14.8 (11.5-15.5) % Plt Count 148 (140-440) K/uL Neut % (Auto) 80.7 H (42.0-72.0) % Lymph % (Auto) 6.0 L (20-44) % [place] % (Auto) 11.8 H (0.0-11.0) % Eos % (Auto) 1.0 (0.0-7.0) % Baso % (Auto) 0.1 (0.0-3.0) % Neut # (Auto) 6.70 (1.7-7.0) K/uL Lymph # (Auto) 0.50 L (0.90-2.90) K/uL [place] # (Auto) 1.00 H (0.00-0.90) K/UL Eos # (Auto) 0.08 (0.00-0.50) K/uL Baso # (Auto) 0.01 (0.00-0.30) K/uL Abs Immat Gran (auto) 0.03 (0.00-0.30) K/uL Imm/Tot Granulo (auto) 0.4 % INR 2.86 H (0.91-1.10) Sodium 137 (135-149) mmol/L Potassium 4.1 (3.6-5.1) mmol/L Chloride 103 (96-114) mmol/L Carbon Dioxide 28 (20-32) mmol/L Anion Gap 6 L (7-15) mEq/L BUN 13 (7-30) mg/dL Creatinine 0.9 (0.5-1.5) mg/dL Estimated Creat Clear 62.84 Estimated GFR 89 ml/min Glucose 141 H (60-115) mg/dL Calcium 9.1 (8.4-10.6) mg/dL Magnesium 2.0 (1.5-2.6) mg/dL SARS-CoV-2 (PCR) POSITIVE SARS-CoV-2 A (Negative) Influenza Type A (PCR) Negative PCR FLU A (Negative) Influenza Type B (PCR) Negative PCR FLU B (Negative) POC Troponin I 0.01 (0.01-0.04) ng/ml ECG Data Attestation: I personally reviewed and interpreted this ECG as follows: Interpretation: Normal sinus rhythm. Rate is 100 beats per minute. There are no ST or T-wave abnormalities. Discharge Plan Discharge Clinical Impression: COVID-19, Chest wall pain Additional Instructions: Hold Lipitor and tamsulosin when taking Paxlovid. Use [id number] medicines as needed and directed. Follow up with MD return if worsening. Prescriptions: New Paxlovid 300 mg (150 mg x 2)-100 mg tablets,dose pack See Rx Instructions PO .COMPLEX Qty: 30 0RF Rx Instructions: take TWO 150 mg tablets of nirmatrelvir with ONE 100 mg tablet of ritonavir twice daily for 5 days No Action oxybutynin chloride 5 mg tablet extended release 24hr 5 mg PO DAILY omeprazole 20 mg capsule,delayed release(DR/EC) 20 mg PO DAILY Ozempic 2 mg/dose (8 mg/3 mL) pen injector 2 mg subcut QWEEK melatonin 5 mg capsule 5 mg PO HS venlafaxine 75 mg capsule,extended release 24hr 75 mg PO DAILY warfarin 5 mg tablet 2.5 - 5 mg PO DAILY Rx Instructions: Take 5mg Mon, Fri, 2.5mg all other days. tamsulosin 0.4 mg capsule 0.4 mg PO DAILY sennosides [senna] 8.6 mg tablet 17.2 mg PO DAILY budesonide-formoterol [Symbicort] 160-4.5 mcg/actuation HFA aerosol inhaler 2 puff inhalation Q12H cetirizine 10 mg tablet 10 mg PO DAILY albuterol sulfate 90 mcg/actuation HFA aerosol inhaler 1 - 2 puff INHALATION Q4H PRN calcium citrate 250 mg calcium tablet 250 mg PO BID atorvastatin 40 mg tablet 40 mg PO DAILY glucosamine-chondroitin [Cosamin DS] 500-400 mg tablet 1 tab PO DAILY meclizine 25 mg tablet 25 mg PO TID PRN lorazepam 1 mg tablet 0.5 mg PO BID gabapentin 100 mg capsule 200 mg PO BID Follow Up/Referrals: TETE MAC DO [Primary Care Provider] -
[2023-03-24 09:48] LABS: Basophils Absolute Auto 0.01 K/uL (0.00-0.30); Basophils Percent Auto 0.1 % (0.0-3.0); Eosinophils Absolute Auto 0.08 K/uL (0.00-0.50); Hematocrit 35.3 % (37.0-53.0); Hemoglobin* 11.5 gm/dL (13.5-17.5); Immature Granulocytes Abs Auto 0.03 K/uL (0.00-0.30); Immature Granulocytes Pct Auto 0.4 %; Mean Corpuscular HGB Conc 33 gm/dL (32-36); Mean Corpuscular Hemoglobin 31 pg (26-34); Mean Corpuscular Volume 94 fL (80-100); Monocytes Percent Auto 11.8 % (0.0-11.0); Neutrophils Percent Auto 80.7 % (42.0-72.0); Platelet Count* 148 K/uL (140-440); RDW Coefficient of Variation % 14.8 % (11.5-15.5); Red Blood Count 3.74 m/uL (4.30-5.90)
[2023-03-24 09:53] LABS: Slide Review Reflex No
[2023-03-24 09:54] LABS: PCR FLU A Negative PCR FLU A (Negative); PCR FLU B Negative PCR FLU B (Negative)
[2023-03-24 09:58] LABS: SARS PCR* POSITIVE SARS-CoV-2 (Negative)
[2023-03-24 10:03] LABS: Chloride* 103 mmol/L (96-114); Potassium* 4.1 mmol/L (3.6-5.1); Sodium* 137 mmol/L (135-149)
[2023-03-24 10:06] LABS: Anion Gap 6 mEq/L (7-15); Blood Urea Nitrogen* 13 mg/dL (7-30); Calcium* 9.1 mg/dL (8.4-10.6); Carbon Dioxide* 28 mmol/L (20-32); Creatinine* 0.9 mg/dL (0.5-1.5); Est. Creatinine Clearance* 62.84; Estimated Glomerular Filt Rate 89 ml/min; Glucose* 141 mg/dL (60-115); Troponin, Point-of-Care* 0.01 ng/ml (0.01-0.04)
[2023-03-24 10:07] LABS: INR 2.86 (0.91-1.10); Prothrombin Time 31.4 Seconds
--- NOTE | 2023-03-24 12:20 | ED.NURSE ---
was wondering what to do when he has his chest discomfort. dr Wise was informed and Tylenol was ordered. the cp was reproducible and cardiac enzymes have been negative. was ok with the answer and was reassured that the appropriate tests were done.
[2023-03-24] MEDS: ACETAMINOPHEN 500 MG TABLET 1000 MG PO (12:24)
== END 2023-03-24 13:24 | disposition home or self-care (01) ==
PROVIDERS: Emergency Provider Emergency Medicine Emergency Medical Services; PCP Student in an Organized Health Care Education/Training Program
DX: U07.1 COVID-19 (principal); R07.89 Other chest pain
CPT/HCPCS: 36415; 80048; 83735; 84484; 85025; 85610; 87631; 93005; 99284; A9270

== ENCOUNTER 2023-04-01 16:47 | Emergency (ER) | payer MEDICARE, BC, SELFPAY ==
[2023-04-01 17:00] VITALS: BP 135/85; PULSE 94; RESP 20; TEMP 36.4; O2SAT 94; BMI 41.4
[2023-04-01 17:18] VITALS: BP 135/85; RESP 16; O2SAT 94
--- NOTE | 2023-04-01 17:18 | CRLHL7_ITS ---
For Patients: As a result of the Century Cures Act, medical imaging exams and procedure reports are released immediately into your electronic medical record. You may view this report before your referring provider. If you have questions, please contact your health care provider. INDICATION: Cough. COVID positive. Shortness of breath. TECHNIQUE: Chest 2 views. COMPARISON: 08/23/2021. FINDINGS: Cardiovascular and mediastinum: Heart size and vasculature are normal in caliber and appearance. Lungs and pleural spaces: Lungs are clear. No sign of infiltrate or mass. No sign of pleural effusion. No pneumothorax. Bones and soft tissues: No significant findings. IMPRESSION: No acute findings and no significant changes from the prior exam. No sign of pneumonia. Dictated by Ishmael Vázquez MD @ 04/01/2023 6:19:04 PM (Electronically Signed)
--- NOTE | 2023-04-01 17:22 | ED.GENADULT ---
HPI - General Adult General Time Seen by Provider: 17:22 Date Seen: 04/01/23 Chief complaint: Arrhythmia/Palpitations Stated complaint: Heart fluttering, diff breath Time Seen by Provider: 04/01/23 16:52 History of Present Illness HPI narrative: This is a very pleasant 77-year-old gentleman with a past medical history that includes COPD (on p.r.n. albuterol and daily budesonide/formoterol) atrial fibrillation (paroxysmal. On warfarin for stroke prophylaxis) obesity, dyslipidemia, GERD, and recent diagnosis of coronavirus. He was seen here in the ER on 03/24. At that time he had some chest discomfort, a mild cough, intermittent palpitations, generalized weakness. His had been positive for COVID. He had done an at home COVID test that was negative the day prior to presentation. He did test positive by PCR for coronavirus on 03/24. He was put on Paxlovid and finished up that medication yesterday. Since he has been here in the ER he has had ongoing cough. He has had a lot of trouble sleeping the past 3 nights cut the cough is keeping him awake. He thinks the cough is getting a little bit better. He has been feeling run down. Appetite been good. He has been eating and drinking enough. He has had low energy. He is at ongoing tightness in his chest. It is not really worse, but is not going away either. He is also still noting intermittent episodes of palpitations. Which changed and brought him back to the ER is that Today he feels just generally weak and run down. He is not feeling worsening short of breath. No production of sputum. Cough is getting a little bit better today. Chest pain is not worse. Palpitations are not worse. Overall his energy is lower. No new peripheral edema. No abdominal pain. No vomiting. Bowel movements normal. No fever. Related Data Home Medications Medication Instructions Recorded Confirmed albuterol sulfate 90 mcg/actuation 1 - 2 puff inhalation Q4H PRN 12/31/22 02/22/23 aerosol inhaler atorvastatin 40 mg tablet 40 mg PO DAILY 12/31/22 02/22/23 budesonide-formoterol HFA 160 2 puff inhalation Q12H 12/31/22 02/22/23 mcg-4.5 mcg/actuation aerosol inhaler (Symbicort) calcium citrate 250 mg PO BID 12/31/22 02/22/23 cetirizine 10 mg tablet 10 mg PO DAILY 12/31/22 02/22/23 gabapentin 100 mg capsule 200 mg PO BID 12/31/22 12/31/22 glucosamine-chondroitin 500 mg-400 1 tab PO DAILY 12/31/22 12/31/22 mg tablet (Cosamin DS) lorazepam 1 mg tablet 0.5 mg PO BID 12/31/22 02/22/23 meclizine 25 mg tablet 25 mg PO TID PRN 12/31/22 02/22/23 melatonin 5 mg capsule 5 mg PO HS 12/31/22 02/22/23 omeprazole 20 mg capsule,delayed 20 mg PO DAILY 12/31/22 02/22/23 release oxybutynin chloride 5 mg 5 mg PO DAILY 12/31/22 02/22/23 tablet,extended release 24 hr semaglutide 2 mg/dose (8 mg/3 mL) 2 mg subcut QWEEK 12/31/22 02/22/23 subcutaneous pen injector (Ozempic) sennosides 8.6 mg tablet (senna) 17.2 mg PO DAILY 12/31/22 02/22/23 tamsulosin 0.4 mg capsule 0.4 mg PO DAILY 12/31/22 02/22/23 venlafaxine 75 mg capsule,extended 75 mg PO DAILY 12/31/22 02/22/23 release 24 hr warfarin 5 mg tablet 2.5 - 5 mg PO DAILY 12/31/22 02/22/23 Previous Rx's Medication Instructions Recorded nirmatrelvir 300 mg (150 mg See Rx Instructions PO .COMPLEX 03/24/23 x2)-ritonavir 100 mg tablet,dose #30 ea pack (Paxlovid) Allergies Allergy/AdvReac Type Severity Reaction Status Date / Time ibuprofen Allergy Intermediate Hives Verified 02/22/23 14:36 phenytoin Allergy Mild Rash Verified 02/22/23 14:36 buspirone [From BuSpar] AdvReac Intermediate Blurry Verified 02/22/23 14:36 Vision citalopram AdvReac Intermediate Dizziness Verified 02/22/23 14:36 lisinopril AdvReac Intermediate Verified 02/22/23 14:36 metformin AdvReac Intermediate Diarrhea Verified 02/22/23 14:36 PFSH PFSH Social History (Updated 03/24/23 @ 11:02 by Michael Wise MD) Smoking Status: Former smoker What tobacco products do you use: cigarettes Years smoked: 37 Smoking quit date/years: >15 years ago Do you use any of these nicotine containing products: None Second hand tobacco smoke exposure: No How often do you have a drink containing alcohol: never How often do you have six or more drinks on one occasion: Never AUDIT-C Alcohol total score: 0 Non-prescribed substance use: denies use service: No Exam Narrative: Exam Narrative: Constitutional: Appears well-developed and well-nourished. Heavyset. Alert. Conversant. Non toxic. HENT: Head: Atraumatic. Nose: Nose normal. Mouth/Throat: Oral mucosa is clear and moist. no trismus. Pharynx normal. Tonsils symmetric. No tonsillar enlargement, erythema, or exudate. Eyes: Conjunctivae normal. EOM normal. Pupils equal, round, and reactive to light. No scleral icterus. Neck: Normal range of motion. Neck supple. No tracheal deviation present. Cardiovascular: Normal rate, regular rhythm. He has sinus rhythm on the monitor with occasional premature atrial contractions. No gallop. No friction rub. No murmur heard. Symmetric radial and PT artery pulses Pulmonary/Chest: Effort normal. No stridor. No respiratory distress. No wheezes. Scarce bilateral rales. No rhonchi . No tenderness. Abdominal: Soft. Bowel sounds normal. No distension. No mass. No tenderness. No rebound. No guarding. Musculoskeletal: RUE: Normal range of motion. No tenderness. No deformity LUE: Normal range of motion. No tenderness. No deformity RLE: Normal range of motion. No edema. No tenderness. No deformity LLE: Normal range of motion. No edema. No tenderness. No deformity Lymph: No cervical adenopathy. Neurological: Alert and oriented to person, place, and time. Normal strength. CN II-VII intact. No sensory deficit. GCS eye subscore is 4. GCS verbal subscore is 5. GCS motor subscore is 6. Normal coordination Skin: Skin is warm and dry. No rash noted. No pallor. Normal capillary refill. Psychiatric: Normal mood. Normal affect. Const: Vital Signs, click to edit/add: Vital Signs - 24 hr 04/01/23 17:00 04/01/23 17:18 04/01/23 17:52 Temperature 97.5 F L Pulse Rate [Right Pulse Oximeter] 94 86 Respiratory Rate 20 16 18 Blood Pressure [Ri ght Upper Arm] 135/85 135/85 144/99 H Pulse Oximetry 94 94 94 Oxygen Delivery Me thod Room Air Room Air Room Air 04/01/23 17:56 Temperature Pulse Rate [Right Pulse Oximeter] 89 Respiratory Rate 18 Blood Pressure [Ri ght Upper Arm] 139/70 Pulse Oximetry 94 Oxygen Delivery Me thod Room Air Course Vital Signs Vital signs: Initial Vital Signs Temperature 97.5 F L 04/01/23 17:00 Temperature Source Temporal Artery Scan 04/01/23 17:00 Pulse Rate 94 04/01/23 17:00 Respiratory Rate 20 04/01/23 17:00 Blood Pressure 135/85 04/01/23 17:00 Blood Pressure Mean 101 04/01/23 17:00 Blood Pressure Position Sitting 04/01/23 17:00 Pulse Oximetry 94 04/01/23 17:00 Oxygen Delivery Method Room Air 04/01/23 17:00 Vital Signs Temperature 97.5 F L 04/01/23 17:00 Pulse Rate 94 04/01/23 17:00 Respiratory Rate 20 04/01/23 17:00 Blood Pressure 135/85 04/01/23 17:00 Pulse Oximetry 94 04/01/23 17:00 Oxygen Delivery Method Room Air 04/01/23 17:00 Temperature 97.5 F L 04/01/23 17:00 Pulse Rate 89 04/01/23 17:56 Respiratory Rate 18 04/01/23 17:56 Blood Pressure 139/70 04/01/23 17:56 Pulse Oximetry 94 04/01/23 17:56 Oxygen Delivery Method Room Air 04/01/23 17:56 Medical Decision Making MDM Narrative Medical decision making narrative: This is a very pleasant 77-year-old male with a complex presentation to the ER. The patient has chronic cough due to COPD but also has had cough worse than normal since last leak. He had a positive COVID PCR test here in the ER 8 days ago. He just completed his course of Paxlovid yesterday. Internal a cough it has been fairly significant over the past 2 nights but is getting better today. He is not hypoxic. No severe shortness of breath. No wheezing or bronchospasm on my lung exam. Chest x-ray is clear. No evidence for any viral or bacterial pneumonia. No evidence for pulmonary edema or CHF. Suspect the cough is probably related to ongoing coronavirus infection. He has already had his 5 day course of Paxlovid. At this point he is not developing any hypoxia or severe respiratory distress requiring hospitalization. No indication for steroids at this point. He does request a prescription for some cough medicine-provided. tessalon prescribed He has also had some chest discomfort since last week that is been ongoing. At this point no clear cause identified. EKG nonischemic. Troponin was negative last week in the ER and is again normal today. Presentation not consistent with ACS. No pain through to the back to suggest dissection. No recent leg swelling or other clear risk factors for PE. He is chronically anticoagulated on warfarin, making PE less likely. Of note INR slightly subtherapeutic today. He had been therapeutic recently and last week in the ER. He will take an extra dose of warfarin tonight, then resume his normal dose tomorrow morning and recheck his INR on Wednesday with his doctor. Although INR slightly subtherapeutic, clinical presents today craven still not suggestive for PE. Due to the risk of contrast nephropathy would hold off on CT PA. He has also had experiencing palpitations. He has a history of AFib. Sounds like this is paroxysmal AFib. EKG here in the ER shows sinus rhythm with occasional PACs. These were seen on his EKG last week in the ER as well. It sounds like he has had some recent outpatient Holter monitoring is but does not know the test results for those. Based on my monitor and EKG here in the ER high do not see any clear arrhythmia such as AFib with RVR requiring hospitalization. He will continue to monitor the palpitations. He has an upcoming outpatient cardiology appointment, which I encouraged him to keep. No life-threatening arrhythmia such as V-tach, VFib, AFib, SVT, or other clear arrhythmia at this point. He also has generalized weakness. Laboratory workup is reassuring. Sodium, hemoglobin, other labs normal. Thyroid normal. Suspect the generalized weakness is probably a constitutional symptom of his COVID. He received IV fluids here in the ER. Blood pressure remained stable. He is tolerating p.o. intake and had a ham sandwich while here in the ER without difficulty. He feels strong enough they will be able to manage at home. Lab Data Labs: Lab Results 04/01/23 04/01/23 Range/Units 17:15 17:24 WBC 7.89 (4.50-11.00) K/uL RBC 3.90 L (4.30-5.90) m/uL Hgb 12.2 L (13.5-17.5) gm/dL Hct 37.0 (37.0-53.0) % MCV 95 (80-100) fL MCH 31 (26-34) pg MCHC 33 (32-36) gm/dL RDW Coeff of [place]ela 14.6 (11.5-15.5) % Plt Count 225 (140-440) K/uL Neut % (Auto) 63.6 (42.0-72.0) % Lymph % (Auto) 19.6 L (20-44) % [place] % (Auto) 13.9 H (0.0-11.0) % Eos % (Auto) 1.5 (0.0-7.0) % Baso % (Auto) 0.4 (0.0-3.0) % Neut # (Auto) 5.01 (1.7-7.0) K/uL Lymph # (Auto) 1.50 (0.90-2.90) K/uL [place] # (Auto) 1.10 H (0.00-0.90) K/UL Eos # (Auto) 0.12 (0.00-0.50) K/uL Baso # (Auto) 0.03 (0.00-0.30) K/uL Abs Immat Gran (auto) 0.08 (0.00-0.30) K/uL Imm/Tot Granulo (auto) 1.0 % INR 1.66 H (0.91-1.10) Sodium 138 (135-149) mmol/L Potassium 4.2 (3.6-5.1) mmol/L Chloride 104 (96-114) mmol/L Carbon Dioxide 25 (20-32) mmol/L Anion Gap 9 (7-15) mEq/L BUN 13 (7-30) mg/dL Creatinine 0.7 (0.5-1.5) mg/dL Estimated Creat Clear 60.80 Estimated GFR 95 ml/min Glucose 101 (60-115) mg/dL Calcium 8.9 (8.4-10.6) mg/dL Total Bilirubin 0.4 (0.1-1.5) mg/dL AST 44 H (12-35) U/L ALT 26 (4-50) U/L Alkaline Phosphatase 85 (40-150) U/L Total Protein 6.9 (6.0-8.3) g/dL Albumin 3.7 (3.3-5.0) g/dL TSH 1.880 (0.270-4.200) uIU/mL Urine Color Yellow (Yellow) Urine Appearance Clear (Clear) Urine pH 7.0 (5.0-8.5) Ur Specific [place] 1.010 (1.000-1.030) Urine Protein Negative (Negative) Urine Glucose (UA) Negative (Negative) Urine Ketones Negative (Negative) Urine Blood Negative (Negative) Urine Nitrite Negative (Negative) Urine Bilirubin Negative (Negative) Urine Urobilinogen 0.2 (0.2-1.0) Ur Leukocyte Esterase Trace A (Negative) Urine RBC 0-2 (0-2) Urine WBC 0-2 (0-5) Urine WBC Clumps None (None) Ur Squamous Epith Cells Few (None-Few) Urine Bacteria None (None) POC Troponin I 0.00 L (0.01-0.04) ng/ml Imaging Data Chest x-ray: Attestation: I have reviewed the pertinent imaging results. Radiologist's impression: IMPRESSION: No acute findings and no significant changes from the prior exam. No sign of pneumonia. ECG Data Attestation: I personally reviewed and interpreted this ECG as follows: Interpretation: Normal sinus rhythm . Computer interprets sinus rhythm with marked sinus arrhythmia. I believe he has sinus rhythm and with 1 Pac. No AFib. MD 174 QRS axis normal axis. No pathologic Q-waves. ST segment/T wave: No ST segment elevation or depression. QTc: 442 Compared to 03/24, no definitive new ischemia. Discharge Plan Discharge Clinical Impression: Subtherapeutic international normalized ratio (INR), COVID-19, Atrial premature contractions, Weakness Patient Disposition: Home, Self-Care Condition: Stable Instructions: Premature Atrial Contractions (ED), COVID-19 (Coronavirus Disease 2019) (ED) Additional Instructions: As we discussed, please come back to the ER right away if you get worse, especially if you have shortness of breath, worsening cough, worsening chest pain, or worsening weakness. Please continue on your medications including your warfarin. Take 1 extra dose of warfarin tonight and then resume your normal dose tomorrow morning. Recheck your INR I your doctor's office by Wednesday to make sure your back to the therapeutics own. Monitor the extra heartbeats. If they are becoming more severe or more frequent, or if they make you dizzy or weak, or cause fainting, come back to the ER or see your culture room worker right away. Be sure to follow-up with her doctor and her culture room worker in clinic as soon as you are able. Prescriptions: No Action oxybutynin chloride 5 mg tablet extended release 24hr 5 mg PO DAILY omeprazole 20 mg capsule,delayed release(DR/EC) 20 mg PO DAILY Ozempic 2 mg/dose (8 mg/3 mL) pen injector 2 mg subcut QWEEK melatonin 5 mg capsule 5 mg PO HS venlafaxine 75 mg capsule,extended release 24hr 75 mg PO DAILY warfarin 5 mg tablet 2.5 - 5 mg PO DAILY Rx Instructions: Take 5mg Mon, Fri, 2.5mg all other days. tamsulosin 0.4 mg capsule 0.4 mg PO DAILY sennosides [senna] 8.6 mg tablet 17.2 mg PO DAILY budesonide-formoterol [Symbicort] 160-4.5 mcg/actuation HFA aerosol inhaler 2 puff inhalation Q12H cetirizine 10 mg tablet 10 mg PO DAILY albuterol sulfate 90 mcg/actuation HFA aerosol inhaler 1 - 2 puff INHALATION Q4H PRN calcium citrate 250 mg calcium tablet 250 mg PO BID atorvastatin 40 mg tablet 40 mg PO DAILY glucosamine-chondroitin [Cosamin DS] 500-400 mg tablet 1 tab PO DAILY meclizine 25 mg tablet 25 mg PO TID PRN lorazepam 1 mg tablet 0.5 mg PO BID gabapentin 100 mg capsule 200 mg PO BID Paxlovid 300 mg (150 mg x 2)-100 mg tablets,dose pack See Rx Instructions PO .COMPLEX Qty: 30 0RF Rx Instructions: take TWO 150 mg tablets of nirmatrelvir with ONE 100 mg tablet of ritonavir twice daily for 5 days Follow Up/Referrals: TETE MAC DO [Primary Care Provider] - Stand Alone Forms: [employer] Info Instructions
[2023-04-01 17:33] LABS: Basophils Absolute Auto 0.03 K/uL (0.00-0.30); Basophils Percent Auto 0.4 % (0.0-3.0); Eosinophils Absolute Auto 0.12 K/uL (0.00-0.50); Eosinophils Percent Auto 1.5 % (0.0-7.0); Hemoglobin* 12.2 gm/dL (13.5-17.5); Immature Granulocytes Abs Auto 0.08 K/uL (0.00-0.30); Lymphocytes Percent Auto 19.6 % (20-44); Mean Corpuscular HGB Conc 33 gm/dL (32-36); Mean Corpuscular Hemoglobin 31 pg (26-34); Mean Corpuscular Volume 95 fL (80-100); Monocytes Percent Auto 13.9 % (0.0-11.0); Neutrophils Absolute Auto 5.01 K/uL (1.7-7.0); Neutrophils Percent Auto 63.6 % (42.0-72.0); Platelet Count* 225 K/uL (140-440); RDW Coefficient of Variation % 14.6 % (11.5-15.5); Slide Review Reflex No; White Blood Count* 7.89 K/uL (4.50-11.00)
[2023-04-01 17:46] LABS: Appearance Urine Clear (Clear); Bilirubin Urine Negative (Negative); Blood Urine Negative (Negative); Color Urine Yellow (Yellow); Glucose Urine Negative (Negative); Ketones Urine Negative (Negative); Leukocyte Esterase Urine Trace (Negative); Nitrite Urine Negative (Negative); Protein Urine Negative (Negative); Urobilinogen Urine 0.2 (0.2-1.0)
[2023-04-01 17:50] LABS: Albumin* 3.7 g/dL (3.3-5.0); Chloride* 104 mmol/L (96-114); Sodium* 138 mmol/L (135-149)
[2023-04-01 17:51] LABS: Potassium* 4.2 mmol/L (3.6-5.1)
[2023-04-01 17:52] VITALS: BP 144/99; PULSE 86; RESP 18; O2SAT 94
[2023-04-01 17:53] LABS: Alkaline Phosphatase* 85 U/L (40-150); Anion Gap 9 mEq/L (7-15); Aspartate Amino Transferase* 44 U/L (12-35); Bilirubin Total* 0.4 mg/dL (0.1-1.5); Carbon Dioxide* 25 mmol/L (20-32); Creatinine* 0.7 mg/dL (0.5-1.5); Estimated Glomerular Filt Rate 95 ml/min; Total Protein* 6.9 g/dL (6.0-8.3)
[2023-04-01 17:54] LABS: Alanine Aminotransferase* 26 U/L (4-50); Blood Urea Nitrogen* 13 mg/dL (7-30); Calcium* 8.9 mg/dL (8.4-10.6); Glucose* 101 mg/dL (60-115)
[2023-04-01 17:56] VITALS: BP 139/70; PULSE 89; RESP 18; O2SAT 94
[2023-04-01 17:57] LABS: RBC Urine 0-2 (0-2); Squamous Epithelial Cell Urine Few (None-Few); WBC Urine 0-2 (0-5)
[2023-04-01 18:14] LABS: INR 1.66 (0.91-1.10); Prothrombin Time 20.5 Seconds
== END 2023-04-01 19:27 | disposition home or self-care (01) ==
PROVIDERS: Emergency Provider Emergency Medicine; PCP Student in an Organized Health Care Education/Training Program
DX: U07.1 COVID-19 (principal); I49.1 Atrial premature depolarization; R53.1 Weakness; Z79.01 Long term (current) use of anticoagulants
CPT/HCPCS: 36415; 71046; 80053; 81001; 84443; 84484; 85025; 85610; 93005; 99284; 99285

== ENCOUNTER 2023-04-19 14:27 | Emergency (ER) | payer MEDICARE, BC, SELFPAY ==
[2023-04-19 14:50] VITALS: BP 150/89; PULSE 99; RESP 20; TEMP 36.7; O2SAT 93
--- NOTE | 2023-04-19 15:51 | ED_ITS ---
HPI - Fall General Chief Complaint: Fall/Minor Trauma Stated Complaint: Fall Wednesday, R rib pain Time Seen by Provider: 04/19/23 15:27 History of Present Illness HPI Narrative: This 77-year-old male comes in with pain in his right posterior ribs. He fell a couple days ago and did not have any pain initially but now is having distinct pain that is worse when performing certain movements or when taking a deep breath. He states that he was taking Tessalon [place] for persistent cough after having COVID more than a month ago. He believes that the medication is made him off balance at times and attributes the fall to this as a cause. He did not hit his head or have other injury. He states that he did not have any pain until that evening and it has worsened over the next day or so. He is on Coumadin and does have some bruising in the right lower posterior ribs of his back. Related Data Home Medications Medication Instructions Recorded Confirmed albuterol sulfate 90 mcg/actuation 1 - 2 puff inhalation Q4H PRN 12/31/22 02/22/23 aerosol inhaler atorvastatin 40 mg tablet 40 mg PO DAILY 12/31/22 02/22/23 budesonide-formoterol HFA 160 2 puff inhalation Q12H 12/31/22 02/22/23 mcg-4.5 mcg/actuation aerosol inhaler (Symbicort) calcium citrate 250 mg PO BID 12/31/22 02/22/23 cetirizine 10 mg tablet 10 mg PO DAILY 12/31/22 02/22/23 gabapentin 100 mg capsule 200 mg PO BID 12/31/22 12/31/22 glucosamine-chondroitin 500 mg-400 1 tab PO DAILY 12/31/22 12/31/22 mg tablet (Cosamin DS) lorazepam 1 mg tablet 0.5 mg PO BID 12/31/22 02/22/23 meclizine 25 mg tablet 25 mg PO TID PRN 12/31/22 02/22/23 melatonin 5 mg capsule 5 mg PO HS 12/31/22 02/22/23 omeprazole 20 mg capsule,delayed 20 mg PO DAILY 12/31/22 02/22/23 release oxybutynin chloride 5 mg 5 mg PO DAILY 12/31/22 02/22/23 tablet,extended release 24 hr semaglutide 2 mg/dose (8 mg/3 mL) 2 mg subcut QWEEK 12/31/22 02/22/23 subcutaneous pen injector (Ozempic) sennosides 8.6 mg tablet (senna) 17.2 mg PO DAILY 12/31/22 02/22/23 tamsulosin 0.4 mg capsule 0.4 mg PO DAILY 12/31/22 02/22/23 venlafaxine 75 mg capsule,extended 75 mg PO DAILY 12/31/22 02/22/23 release 24 hr warfarin 5 mg tablet 2.5 - 5 mg PO DAILY 12/31/22 02/22/23 Previous Rx's Medication Instructions Recorded nirmatrelvir 300 mg (150 mg See Rx Instructions PO .COMPLEX 03/24/23 x2)-ritonavir 100 mg tablet,dose #30 ea pack (Paxlovid) hydrocodone 5 mg-acetaminophen 325 1 tab PO Q4-6H PRN pain #15 tabs 04/19/23 mg tablet Allergies Allergy/AdvReac Type Severity Reaction Status Date / Time ibuprofen Allergy Intermediate Hives Verified 04/19/23 14:54 phenytoin Allergy Mild Rash Verified 04/19/23 14:54 buspirone [From BuSpar] AdvReac Intermediate Blurry Verified 04/19/23 14:54 Vision citalopram AdvReac Intermediate Dizziness Verified 04/19/23 14:54 lisinopril AdvReac Intermediate Verified 04/19/23 14:54 metformin AdvReac Intermediate Diarrhea Verified 04/19/23 14:54 Review of Systems Status of ROS: Reports: 10 or more systems reviewed and unremarkable except as noted in History and below Narrative: Constitutional: No fevers, no weight gain or loss. Eyes: No discharge. No vision changes. HENT: No congestion, no sore throat, no ear pain. Cardiovascular: No chest pain, no palpitations. Respiratory: No shortness of breath, no wheezes, no cough. Gastrointestinal: No abdominal pain, no vomiting, no diarrhea. Genitourinary: No dysuria, no hematuria. Musculoskeletal: Normal range of motion. Skin: No rashes, no pruritis. Neurological: No dizziness, weakness, sensory change, speech change. Endo/Heme/Allergies: No polydipsia. Pysch: no suicidality, no anxiety, no insomnia. All other systems reviewed and are negative. PFSH PFSH Social History (Updated 03/24/23 @ 11:02 by Michael Wise MD) Smoking Status: Former smoker What tobacco products do you use: cigarettes Years smoked: 37 Smoking quit date/years: >15 years ago Do you use any of these nicotine containing products: None Second hand tobacco smoke exposure: No How often do you have a drink containing alcohol: never How often do you have six or more drinks on one occasion: Never AUDIT-C Alcohol total score: 0 Non-prescribed substance use: denies use service: No Exam Narrative: Exam Narrative: Constitutional: Well-developed, well-nourished, no acute distress. HEENT: Normocephalic, atraumatic. Neck: Normal range of motion. Nontender. Supple. Heart: Regular. No murmurs. Normal rate. Intact distal pulses. Lungs: Clear to auscultation. No wheezes, rhonchi, or rales. Ribs: The right lower posterior ribs have tenderness with some ecchymosis. Abdomen: Normal bowel sounds. Nontender. No rebound tenderness. Genitalia: Deferred. Back: No midline tenderness. Normal range of motion. Extremities: Normal range of motion. No injury. Skin: Intact. No rash. Warm. No erythema or pallor. Neurologic: No altered sensation. No weakness. Alert and oriented. Psychiatric: No suicidality. No anxiety or depression. No insomnia. Nursing notes and vitals signs are reviewed. Const: Vital Signs, click to edit/add: Vital Signs - 24 hr 04/19/23 14:50 Temperature 98.1 F Pulse Rate [Right Pulse Oximeter] 99 Respiratory Rate 20 Blood Pressure [Ri ght Upper Arm] 150/89 H Pulse Oximetry 93 Oxygen Delivery Me thod Room Air Course Vital Signs Vital signs: Initial Vital Signs Temperature 98.1 F 04/19/23 14:50 Temperature Source Oral 04/19/23 14:50 Pulse Rate 99 04/19/23 14:50 Pulse Rhythm Regular 04/19/23 14:50 Respiratory Rate 20 04/19/23 14:50 Blood Pressure 150/89 H 04/19/23 14:50 Blood Pressure Mean 109 H 04/19/23 14:50 Blood Pressure Position Sitting 04/19/23 14:50 Pulse Oximetry 93 04/19/23 14:50 Oxygen Delivery Method Room Air 04/19/23 14:50 Vital Signs Temperature 98.1 F 04/19/23 14:50 Pulse Rate 99 04/19/23 14:50 Respiratory Rate 20 04/19/23 14:50 Blood Pressure 150/89 H 04/19/23 14:50 Pulse Oximetry 93 04/19/23 14:50 Oxygen Delivery Method Room Air 04/19/23 14:50 Temperature 98.1 F 04/19/23 14:50 Pulse Rate 99 04/19/23 14:50 Respiratory Rate 20 04/19/23 14:50 Blood Pressure 150/89 H 04/19/23 14:50 Pulse Oximetry 93 04/19/23 14:50 Oxygen Delivery Method Room Air 04/19/23 14:50 MDM - Fall MDM Narrative Medical decision making narrative: This patient comes in with pain in his right posterior ribs from a fall that occurred a couple days ago. He did not have any pain initially but over time has developed distinct reproducible pain. He is on Coumadin and has noted a little bit of bruising in this area. Chest x-ray with rib detail shows no sign of fracture or pneumothorax. Additionally the patient's INR returns at a ther apeutic level of 2.96. Patient did receive a rib belt and a prescription for some tablets of [place]. He understands that this rib injury may be painful for several weeks. Lab Data Labs: Lab Results 04/19/23 Range/Units 16:20 INR 2.96 H (0.91-1.10) Imaging Data XR RIbs: Radiologist's impression: No acute or significant findings. Discharge Plan Discharge Clinical Impression: Contusion of rib on right side Patient Disposition: Home, Self-Care Condition: Stable Additional Instructions: Wear rib belt as needed. Take medication also as needed and directed. Activity as tolerated. Follow up with MD return if worsening. Prescriptions: New hydrocodone-acetaminophen 5-325 mg tablet 1 tab PO Q4-6H PRN (Reason: pain) Qty: 15 0RF No Action oxybutynin chloride 5 mg tablet extended release 24hr 5 mg PO DAILY omeprazole 20 mg capsule,delayed release(DR/EC) 20 mg PO DAILY Ozempic 2 mg/dose (8 mg/3 mL) pen injector 2 mg subcut QWEEK melatonin 5 mg capsule 5 mg PO HS venlafaxine 75 mg capsule,extended release 24hr 75 mg PO DAILY warfarin 5 mg tablet 2.5 - 5 mg PO DAILY Rx Instructions: Take 5mg Mon, Fri, 2.5mg all other days. tamsulosin 0.4 mg capsule 0.4 mg PO DAILY sennosides [senna] 8.6 mg tablet 17.2 mg PO DAILY budesonide-formoterol [Symbicort] 160-4.5 mcg/actuation HFA aerosol inhaler 2 puff inhalation Q12H cetirizine 10 mg tablet 10 mg PO DAILY albuterol sulfate 90 mcg/actuation HFA aerosol inhaler 1 - 2 puff INHALATION Q4H PRN calcium citrate 250 mg calcium tablet 250 mg PO BID atorvastatin 40 mg tablet 40 mg PO DAILY glucosamine-chondroitin [Cosamin DS] 500-400 mg tablet 1 tab PO DAILY meclizine 25 mg tablet 25 mg PO TID PRN lorazepam 1 mg tablet 0.5 mg PO BID gabapentin 100 mg capsule 200 mg PO BID Paxlovid 300 mg (150 mg x 2)-100 mg tablets,dose pack See Rx Instructions PO .COMPLEX Qty: 30 0RF Rx Instructions: take TWO 150 mg tablets of nirmatrelvir with ONE 100 mg tablet of ritonavir twice daily for 5 days Follow Up/Referrals: TETE MAC DO [Primary Care Provider] - Stand Alone Forms: [employer] Info Instructions
--- NOTE | 2023-04-19 15:51 | CRLHL7_ITS ---
For Patients: As a result of the Cures Act, medical imaging exams and procedure reports are released immediately into your electronic medical record. You may view this report before your referring provider. If you have questions, please contact your health care provider. INDICATION: Fall. TECHNIQUE: Chest/right ribs, 3 views. COMPARISON: None. FINDINGS: Cardiovascular and mediastinum: Heart size and vasculature are normal in caliber and appearance. Lungs and pleural spaces: Bibasilar atelectasis. No sign of infiltrate or mass. No sign of pleural effusion. No pneumothorax. Bones and soft tissues: No significant findings. IMPRESSION: No acute or significant findings. Dictated by Srinivasan Block MD @ 04/19/2023 4:57:42 PM (Electronically Signed)
[2023-04-19 16:39] LABS: INR 2.96 (0.91-1.10); Prothrombin Time 32.2 Seconds
--- OUTSIDE RECORDS SUMMARY | 2023-04-19 16:42 | XMS_ITS | Continuity of Care Document ---
Author Name Unknown Organization [facility] Address [address] [address] [place] [address] Phone Care Team Providers Care Coke Wheeler Name Role Phone Link Vladimir GRAY Unavailable Unavailable Allergies, Adverse Reactions, Alerts Substance Reaction Status Criticality No Known allergies Medications Medication Instructions Dosage Effective Dates (start - stop) Status Comments Lovenox 100 mg/mL Sub-Q Syringe One subcutaneous injection daily w hile off of coumadin - Active Prilosec 20 mg Cap Take 1 tablet by mouth twice daily - Active Effexor 50 mg Tab Take one tablet by mouth daily - Active isosorbide dinitrate 10 mg Tab take one tablet by mouth daily (strength unknown) - Active Hydrochlorothiazide unknown one tablet a day - Active Coumadin 5 mg Tab take one tablet by mouth daily - Active Advair UnknownINHALER as needed for congestion - Active Prilosec 20 mg Cap Take one tablet by mouth daily - No Longer Active warfarin 5 mg Tab Take one tablet by mouth daily - No Longer Active Effexor 50 mg Tab Take one tablet by mouth daily - No Longer Active ISOSORBIDE DINITRATE (unknown strength) Take one tablet by mouth daily Not Available - No Longer Active Procedures Procedure Date Ugi Endo; W/remov Tumor/les-sn 09 Level Iv-surg Path Gross/micro 09 Offic/outpt E&[facility] 45 9 [id number] Advance Directives Directive Yes / No Effective Date File Name No Information Encounters Encounter Description Practice Location Reason(s) For Visit Diagnoses Date Provider Providers Copied on Encounter [facility], [address] [address], [place], [place], [id number], [place] tel:[phone] [facility] Polyp-intes/rect/ stom-unc BehHiatal HerniaBenign Neoplasm Sm BowelHiatal Hernia 9 Zac Gilbert. [address] [facility] [address], [place], [id number] , [place]. tel:[phone] Referring Provider: Katarzyna Luna MD , [address] [place] [address], [place], [address]. tel:[phone] Offic/outpt [facility] 45 [facility], [address] [address], [place], [place], [id number], [place] tel:[phone] [facility] Duodenal Polyp (chief complaint) Gastroesophageal RefluxPolyp-intes /rect/stom-unc Beh 9 Shahram Burns. [address] [facility], [facility] [address], [place], [place], [id number] , [place]. tel:[phone] Family History Family Member Type Diagnosis Age At Onset First degree family history Problem (finding) No history of Cancer, colon First degree family history Problem (finding) No history of Ulcerative Colitis First degree family history Problem (finding) No history of Crohn's First degree family history Problem (finding) No Family history of No history of Colon Polyps First degree family history Problem (finding) Thyroid Disorder Payers Payer name Insurance type Covered libertarian ID Authoriza tijaxson(s) [employer] [place] [id number] Social History Type Description Quantity Date Captured Comments Sex Male Smoking Status No Information Chief Complaint And Reason For Visit No Information Reason For Referral Reason For Referral No Information History Of Present Illness Encounter Date Complaint History Of Prese nt Illness No Information Functional Status Date Functional Assessmen t No Information Instructions Date Instruction Additional Infor mation No Information Assessments Type Assessment Date No Information Patient Care Teams Name Effective Dates (start - stop) Status Members No Information
--- OUTSIDE RECORDS SUMMARY | 2023-04-19 16:43 | XMS_ITS | Continuity of Care Document ---
Author Name Unknown Organization [facility] Address [address] [address] [place] [address] Phone Care Team Providers Care Ear Machine Operator Name Role Phone Link Vladimir GRAY Unavailable [...] Level Iv-surg Path Gross/micro 09 Offic/outpt E&m [facility] 45 9 [id number] Advance Directives Directive Yes / No Effective Date File Name No Information Encounters Encounter Description Practice Location Reason(s) For Visit Diagnoses Date Provider Providers Copied on Encounter [facility] [place] [facility], [address] [address], [place], [place], [id number], [place] tel:[phone] [facility] Polyp-intes/rect/ stom-unc BehHiatal HerniaBenign Neoplasm Sm BowelHiatal Hernia 9 Zac Gilbert. [address] [facility] [address], [place], [id number] , [place]. tel:[phone] Referring Provider: Katarzyna Luna MD , [address] [place] [address], [place], [address]. tel:[phone] Offic/outpt [facility] [address] [facility], [address] [address], [place], [place], [id number], [place] tel:[phone] [facility] Duodenal Polyp (chief complaint) Gastroesophageal RefluxPolyp-intes /rect/stom-unc Beh 9 Shahram Burns. [address] [facility], [facility] [address], [place], [place], [id number] , [place]. tel:[phone] Family History Family Member Type Diagnosis Age [...] Disorder Payers Payer name Insurance type Covered republican ID Authoriza tijaxson(s) [employer] BL [id number] Social History Type Description Quantity Date Captured [...]
[2023-04-19 18:00] VITALS: BP 145/87; PULSE 62; RESP 16; O2SAT 93
[2023-04-19 18:18] VITALS: BP 137/87; PULSE 87; RESP 16; TEMP 36.7
== END 2023-04-19 18:15 | disposition home or self-care (01) ==
PROVIDERS: Emergency Provider Emergency Medicine Emergency Medical Services; PCP Student in an Organized Health Care Education/Training Program
DX: S20.211A Contusion of right front wall of thorax, initial encounter (principal); W19.XXXA Unspecified fall, initial encounter
CPT/HCPCS: 36415; 71101; 85610; 99283; 99284

== ENCOUNTER 2023-12-09 09:18 | Emergency (ER) | payer MEDICARE, BC, SELFPAY ==
[2023-12-09] VITALS (13 sets, daily range): BP systolic 134–153; BP diastolic 69–82; PULSE 58–67; RESP 16–18; TEMP 36.4; O2SAT 92–95; BMI 39.9
--- NOTE | 2023-12-09 09:39 | ED.CHESTPAIN ---
HPI - Chest Pain General Chief Complaint: Chest Pain Stated Complaint: Chest pain and shortness of breath headache Time Seen by Provider: 12/09/23 09:29 History of Present Illness HPI narrative: Patient is a 78-year-old gentleman comes in today after developing chest pain this morning. The pain began approximately 2 hours ago while at rest. It extended across the anterior chest. He had no diaphoresis no nausea no vomiting no fevers no chills. He has otherwise been in his usual state of health and has no history of coronary disease. His symptoms have largely resolved. Patient has chronic atrial fibrillation intermittently and is on Coumadin is. His EKG shows normal sinus rhythm today without acute ST or T-wave changes. Related Data Home Medications ?Medication ?Instructions ?Recorded ?Confirmed albuterol sulfate 90 mcg/actuation 1 - 2 puff inhalation Q4H PRN 12/31/22 12/09/23 aerosol inhaler atorvastatin 40 mg tablet 40 mg PO DAILY 12/31/22 12/09/23 calcium citrate 250 mg PO BID 12/31/22 12/09/23 cetirizine 10 mg tablet 10 mg PO DAILY 12/31/22 12/09/23 gabapentin 100 mg capsule 200 mg PO BID 12/31/22 12/09/23 lorazepam 1 mg tablet 0.5 mg PO BID 12/31/22 12/09/23 meclizine 25 mg tablet 25 mg PO TID PRN 12/31/22 12/09/23 melatonin 5 mg capsule 5 mg PO HS 12/31/22 12/09/23 omeprazole 20 mg capsule,delayed 20 mg PO DAILY 12/31/22 12/09/23 release oxybutynin chloride 5 mg 5 mg PO DAILY 12/31/22 12/09/23 tablet,extended release 24 hr semaglutide 2 mg/dose (8 mg/3 mL) 2 mg subcut QWEEK 12/31/22 12/09/23 subcutaneous pen injector (Ozempic) sennosides 8.6 mg tablet (senna) 17.2 mg PO DAILY 12/31/22 12/09/23 tamsulosin 0.4 mg capsule 0.4 mg PO DAILY 12/31/22 12/09/23 venlafaxine 75 mg capsule,extended 75 mg PO DAILY 12/31/22 12/09/23 release 24 hr warfarin 5 mg tablet 2.5 - 5 mg PO DAILY 12/31/22 12/09/23 acetaminophen 12/09/23 metoprolol succinate 25 mg 25 mg PO DAILY 12/09/23 12/09/23 tablet,extended release 24 hr mometasone-formoterol HFA 100 2 puff inhalation BID 12/09/23 12/09/23 mcg-5 mcg/actuation aerosol inhaler (Dulera) Allergies Allergy/AdvReac Type Severity Reaction Status Date / Time ibuprofen Allergy Intermediate Hives Verified 04/19/23 14:54 phenytoin Allergy Mild Rash Verified 04/19/23 14:54 buspirone [From BuSpar] AdvReac Intermediate Blurry Verified 04/19/23 14:54 Vision citalopram AdvReac Intermediate Dizziness Verified 04/19/23 14:54 lisinopril AdvReac Intermediate Verified 04/19/23 14:54 metformin AdvReac Intermediate Diarrhea Verified 04/19/23 14:54 Review of Systems Status of ROS Reports: 10 or more systems reviewed and unremarkable except as noted in History and below [facility] Medical History (Updated 12/09/23 @ 11:34 by Wilson Cintron MD) Hypertension ?I10 - Essential (primary) hypertension (ICD-10) Atrial fibrillation ?I48.91 - Unspecified atrial fibrillation (ICD-10) Social History Smoking Status: Former smoker What tobacco products do you use: cigarettes Years smoked: 37 Smoking quit date/years: >15 years ago Do you use any of these nicotine containing products: None Second hand tobacco smoke exposure: No How often do you have a drink containing alcohol: never How often do you have six or more drinks on one occasion: Never AUDIT-C Alcohol total score: 0 Non-prescribed substance use: denies use service: No Exam Narrative Exam Narrative: EXAM GENERAL: Patient appears comfortable and well. Patient obese. EYES: No scleral icterus. LYMPH: No supraclavicular or cervical lymphadenopathy. SKIN: Visible skin seen during exam normal or with benign process only. EXT: No dependent lower extremity pedal edema. HEART: Regular rate and rhythm with no murmurs, rubs, or gallops. LUNGS: Clear to auscultation bilaterally with no crackles or wheezes. ABD: Soft, non tender, non distended. PSYCH: Good eye contact, speech is not pressured. Const Vital Signs, click to edit/add: Vital Signs - 24 hr 12/09/23 09:21 12/09/23 10:02 12/09/23 10:03 Temperature 97.6 F Pulse Rate 65 64 Pulse Rate [Pulse Oximeter] 67 Respiratory Rate 18 16 Blood Pressure 139/73 Blood Pressure [Right Upper Arm] 134/75 Pulse Oximetry 94 92 92 Oxygen Delivery Method Room Air 12/09/23 10:30 12/09/23 10:32 12/09/23 11:00 Temperature Pulse Rate 62 61 60 Pulse Rate [Pulse Oximeter] Respiratory Rate Blood Pressure 141/69 H Blood Pressure [Right Upper Arm] Pulse Oximetry 92 92 92 Oxygen Delivery Method 12/09/23 11:02 12/09/23 11:03 12/09/23 11:30 Temperature Pulse Rate 61 60 60 Pulse Rate [Pulse Oximeter] Respiratory Rate Blood Pressure 149/74 H Blood Pressure [Right Upper Arm] Pulse Oximetry 93 93 94 Oxygen Delivery Method 12/09/23 11:32 12/09/23 12:00 12/09/23 12:02 Temperature Pulse Rate 60 58 L 61 Pulse Rate [Pulse Oximeter] Respiratory Rate 16 Blood Pressure 150/79 H 153/82 H Blood Pressure [Right Upper Arm] Pulse Oximetry 93 93 95 Oxygen Delivery Method Course Course ED Course: EKG negative upon my review for acute ischemia. Troponin D-dimer CBC basic metabolic panel chest x-ray pending. Vital Signs Vital signs: Initial Vital Signs Temperature 97.6 F 12/09/23 09:21 Temperature Source Temporal Artery Scan 12/09/23 09:21 Pulse Rate 67 12/09/23 09:21 Respiratory Rate 18 12/09/23 09:21 Blood Pressure 134/75 12/09/23 09:21 Blood Pressure Mean 94 12/09/23 09:21 Blood Pressure Position Supine 12/09/23 09:21 Pulse Oximetry 94 12/09/23 09:21 Oxygen Delivery Method Room Air 12/09/23 09:21 Vital Signs Temperature 97.6 F 12/09/23 09:21 Pulse Rate 67 12/09/23 09:21 Respiratory Rate 18 12/09/23 09:21 Blood Pressure 134/75 12/09/23 09:21 Pulse Oximetry 94 12/09/23 09:21 Oxygen Delivery Method Room Air 12/09/23 09:21 Temperature 97.6 F 12/09/23 09:21 Pulse Rate 61 12/09/23 12:02 Respiratory Rate 16 12/09/23 12:02 Blood Pressure 153/82 H 12/09/23 12:02 Pulse Oximetry 95 12/09/23 12:02 Oxygen Delivery Method Room Air 12/09/23 09:21 MDM - Chest Pain MDM Narrative Medical decision making narrative: Patient is a 78-year-old gentleman who woke with chest pain this morning. He does have paroxysmal atrial fibrillation is on Coumadin. His INRs have been therapeutic. He has 80 unremarkable EKG which shows sinus rhythm. Initial old and follow-up troponin 90 minutes later were normal. Rest of workup is unremarkable including chest x-ray and D-dimer. This point patient feels better and would like to go home. Differential diagnosis includes 2 acute myocardial infarction unstable angina aortic dissection pulmonary infarct pulmonary embolism pneumonia reflux. Lab Data Labs: Lab Results 12/09/23 Range/Units 09:50 WBC 6.06 (4.50-11.00) K/uL RBC 3.80 L (4.30-5.90) m/uL Hgb 12.1 L (13.5-17.5) gm/dL Hct 36.4 L (37.0-53.0) % MCV 96 (80-100) fL MCH 32 (26-34) pg MCHC 33 (32-36) gm/dL RDW Coeff of Isela 13.7 (11.5-15.5) % Plt Count 182 (140-440) K/uL Neut % (Auto) 56.5 (42.0-72.0) % Lymph % (Auto) 24.4 (20-44) % [place] % (Auto) 15.8 H (0.0-11.0) % Eos % (Auto) 2.1 (0.0-7.0) % Baso % (Auto) 0.5 (0.0-3.0) % Neut # (Auto) 3.42 (1.7-7.0) K/uL Lymph # (Auto) 1.48 (0.90-2.90) K/uL [place] # (Auto) 1.00 H (0.00-0.90) K/UL Eos # (Auto) 0.13 (0.00-0.50) K/uL Baso # (Auto) 0.03 (0.00-0.30) K/uL Abs Immat Gran (auto) 0.04 (0.00-0.30) K/uL Imm/Tot Granulo (auto) 0.7 % D-Dimer Quant (PE/DVT) < 0.27 (0.00-0.50) ug/ml Sodium 138 (135-149) mmol/L Potassium 4.1 (3.6-5.1) mmol/L Chloride 104 (96-114) mmol/L Carbon Dioxide 29 (20-32) mmol/L Anion Gap 5 L (7-15) mEq/L BUN 16 (7-30) mg/dL Creatinine 0.9 (0.5-1.5) mg/dL Estimated Creat Clear 61.86 Estimated GFR 88 ml/min Glucose 118 H (60-115) mg/dL Calcium 9.0 (8.4-10.6) mg/dL Troponin I < 0.01 L (0.01-0.04) ng/mL Discharge Plan Discharge Clinical Impression: Chest pain Patient Disposition: Home, Self-Care Condition: Stable Instructions: Chest Pain (ED) Additional Instructions: Continue current medications. -monitor symptoms. Follow-up with your doctor as needed. Activity Level: No Restrictions Discharge Diet: Regular Prescriptions: No Action oxybutynin chloride 5 mg tablet extended release 24hr 5 mg PO DAILY omeprazole 20 mg capsule,delayed release(DR/EC) 20 mg PO DAILY Ozempic 2 mg/dose (8 mg/3 mL) pen injector 2 mg subcut QWEEK melatonin 5 mg capsule 5 mg PO HS venlafaxine 75 mg capsule,extended release 24hr 75 mg PO DAILY warfarin 5 mg tablet 2.5 - 5 mg PO DAILY Rx Instructions: Take 5mg Mon, Fri, 2.5mg all other days. tamsulosin 0.4 mg capsule 0.4 mg PO DAILY sennosides [senna] 8.6 mg tablet 17.2 mg PO DAILY cetirizine 10 mg tablet 10 mg PO DAILY albuterol sulfate 90 mcg/actuation HFA aerosol inhaler 1 - 2 puff INHALATION Q4H PRN calcium citrate 250 mg calcium tablet 250 mg PO BID atorvastatin 40 mg tablet 40 mg PO DAILY meclizine 25 mg tablet 25 mg PO TID PRN lorazepam 1 mg tablet 0.5 mg PO BID gabapentin 100 mg capsule 200 mg PO BID acetaminophen metoprolol succinate 25 mg tablet extended release 24 hr 25 mg PO DAILY Dulera 100-5 mcg/actuation HFA aerosol inhaler 2 puff inhalation BID Follow Up/Referrals: TETE MAC DO [Primary Care Provider] - Stand Alone Forms: [facility] Info Instructions
--- NOTE | 2023-12-09 09:51 | CRLHL7_ITS ---
For Patients: As a result of the Century Cures Act, medical imaging exams and procedure reports are released immediately into your electronic medical record. You may view this report before your referring provider. If you have questions, please contact your health care provider. INDICATION: Chest pain and shortness of breath. TECHNIQUE: Chest 1 views. COMPARISON: None. FINDINGS: Cardiovascular and mediastinum: Heart size and vasculature are normal in caliber and appearance. Lungs and pleural spaces: Small left pleural effusion and mild left basilar atelectasis/consolidation. No pneumothorax. Bones and soft tissues: No significant findings. IMPRESSION: Small left pleural effusion and mild left basilar atelectasis/consolidation. Dictated by Heriberto Dumont MD @ 12/09/2023 10:04:53 AM (Electronically Signed)
[2023-12-09 10:01] LABS: Basophils Absolute Auto 0.03 K/uL (0.00-0.30); Basophils Percent Auto 0.5 % (0.0-3.0); Eosinophils Absolute Auto 0.13 K/uL (0.00-0.50); Eosinophils Percent Auto 2.1 % (0.0-7.0); Hematocrit 36.4 % (37.0-53.0); Hemoglobin* 12.1 gm/dL (13.5-17.5); Immature Granulocytes Abs Auto 0.04 K/uL (0.00-0.30); Immature Granulocytes Pct Auto 0.7 %; Lymphocytes Absolute Auto 1.48 K/uL (0.90-2.90); Lymphocytes Percent Auto 24.4 % (20-44); Mean Corpuscular HGB Conc 33 gm/dL (32-36); Mean Corpuscular Hemoglobin 32 pg (26-34); Mean Corpuscular Volume 96 fL (80-100); Monocytes Percent Auto 15.8 % (0.0-11.0); Neutrophils Absolute Auto 3.42 K/uL (1.7-7.0); Neutrophils Percent Auto 56.5 % (42.0-72.0); Platelet Count* 182 K/uL (140-440); RDW Coefficient of Variation % 13.7 % (11.5-15.5); White Blood Count* 6.06 K/uL (4.50-11.00)
[2023-12-09 10:07] LABS: Slide Review Reflex No
[2023-12-09 10:13] LABS: Chloride* 104 mmol/L (96-114); Potassium* 4.1 mmol/L (3.6-5.1); Sodium* 138 mmol/L (135-149)
[2023-12-09 10:16] LABS: Anion Gap 5 mEq/L (7-15); Blood Urea Nitrogen* 16 mg/dL (7-30); Carbon Dioxide* 29 mmol/L (20-32); Creatinine* 0.9 mg/dL (0.5-1.5); Est. Creatinine Clearance* 61.86; Estimated Glomerular Filt Rate 88 ml/min
[2023-12-09 10:17] LABS: Glucose* 118 mg/dL (60-115)
[2023-12-09 10:21] LABS: D Dimer Quantitative* < 0.27 ug/ml (0.00-0.50)
[2023-12-09 10:29] LABS: Troponin I* < 0.01 ng/mL (0.01-0.04)
[2023-12-09 12:12] LABS: Troponin I* < 0.01 ng/mL (0.01-0.04)
== END 2023-12-09 12:29 | disposition home or self-care (01) ==
PROVIDERS: Emergency Provider Internal Medicine; PCP Student in an Organized Health Care Education/Training Program
DX: R07.9 Chest pain, unspecified (principal)
CPT/HCPCS: 36415; 71045; 80048; 84484; 85025; 85379; 93005; 99283; 99284

== ENCOUNTER 2024-01-04 09:46 | Outpatient (CLI) | payer MEDICARE, BC, SELFPAY ==
--- OUTSIDE RECORDS SUMMARY | 2024-01-04 09:50 | XMS_ITS | Clinical Summary ---
Author Organization [facility] Address [address] [place] [address] Care Team Providers Care Assistant Unit Forester Name Role Phone Elsewhere, Pcp Primary Care Provider Unavailabl e Source Comments Patient records contain information from all sites at [facility]. For routine questions regarding patient records, call [phone] during business hours, M-F 8:00 AM - 5:00 PM Central Time. Record requests for emergency care only can be directed to [phone] at any time.[facility] Allergies Active Allergy Reactions Criticality Noted Date Comments Buspirone Other (see comments) 04/11/2014 Blurred vision, head pressure, dizzy. Buspirone Hcl Other (see comments) 04/11/2014 Blurred vision, head pressure, dizzy. Citalopram GI intolerance 01/03/2014 Dizzy and nausea Ibuprofen Hives (Reselect Reaction) 06/07/2007 Lisinopril Cough 07/30/2010 Metformin Diarrhea 11/17/2017 Including short and long-acting formulation Phenytoin Other (see comments) 07/30/2010 Dilantin, unsure of reaction- occurred during procedure and he does not know what it was but was told to not take again Medications Medication Sig Dispensed Refills Start Date End Date Status albuterol 90 mcg/actuation inhaler Inhale 1-2 puffs every 4 (four) hours as needed for wheezing. 09/13/2020 Active atorvastatin (LIPITOR) 40 mg tablet Take 40 mg by mouth at bedtime. 09/13/2020 Active calcium citrate 250 mg calcium tablet Take 250 mg by mouth 2 (two) times a day with meals. 08/17/2019 Active tamsulosin (FLOMAX) 0.4 mg 24 hr capsule Take 2 capsules by mouth daily. noon 08/01/2020 Active venlafaxine XR (EFFEXOR-XR) 75 mg 24 hr capsule Take 75 mg by mouth daily. noon 09/13/2020 Active cetirizine (ZyrTEC) 10 mg tablet Take 1 tablet by mouth daily. noon 06/06/2022 Active fjxbgvww-eukrbn-kxf 1-D3-C-leticia 750-625-1,000 mg-mg-unit tablet Take 1 capsule by mouth daily. Osteo bi-flex Active meclizine (ANTIVERT) 25 mg tablet Take 25 mg by mouth 3 (three) times a day as needed for vertigo. 08/06/2022 Active sennosides (SENOKOT) 8.6 mg tablet Take 8.6 mg by mouth 2 (two) times a day. 03/28/2019 Active melatonin 5 mg capsule Take 1 capsule by mouth at bedtime. 03/17/2018 Active oxyBUTYnin (DITROPAN-XL) 5 mg 24 hr tablet Take 1 tablet by mouth at bedtime. 08/12/2022 Active vitamins A,C,Y-wqed-siknup (PRESERVISION AREDS) 7,160 Units-113 mg-100 Units per tablet Take 1 tablet by mouth daily. noon Active omeprazole (PriLOSEC) [address] capsule Take 20 mg by mouth every morning before breakfast. 10/06/2022 Active warfarin (COUMADIN) 5 mg tablet Take 0.5-1 tablets (2.5-5 mg total) by mouth daily. Wednesday, and Wednesday take 5mg tablet once a day. Take 2.5 mg on Wednesday, Wednesday, Wednesday and Wednesday. 10/29/2022 Active acetaminophen (TYLENOL) 500 mg tablet Take 2 tablets (1,000 mg total) by mouth every 6 (six) hours. 100 tablet 11/03/2022 Active LORazepam (ATIVAN) 1 mg tablet Take 1/2 tablet by mouth every morning and 1 tablet at noon. 20 tablet 1 12/24/2022 Active Ozempic 2 mg/dose (8 mg/3 mL) injection Inject 2 mg under the skin over 168 hr. 01/11/2023 Active metoprolol tartrate (LOPRESSOR) 25 mg tablet Take 25 mg by mouth as directed. 12.5 mg at noon, 25 mg at night 01/26/2023 Active Advair Diskus 250-50 mcg/act diskus inhaler Inhale 1 puff 2 (two) times a day. 06/03/2023 Active fluticasone propionate (FLONASE) 50 mcg/actuation nasal spray Administer 2 sprays into nostril(s) daily. 06/03/2023 Active metoprolol succinate (TOPROL-XL) 25 mg 24 hr tablet Take 1 tablet by mouth daily. 05/19/2023 Active sennosides-docusate sodium (SENOKOT-S) 8.6-50 mg per tablet Take 1 tablet by mouth at bedtime as needed. 03/08/2023 Active Mounjaro 5 mg/0.5 mL pen injector injection Inject 5 mg under the skin over 168 hr. 07/12/2023 Active Active Problems Problem Noted Date Diagnosed Date Diabetes Mellitus Due To Und erlying Condition With Other Skin Complications 08/03/2023 Aftercare Total Knee Arthroplasty 11/02/2022 Preanesthetic Medical Exam 10/19/2022 Primary Osteoarthritis Knee Bilateral 10/19/2022 Anemia 10/27/2021 Thrombosis Deep Vein Personal History 01/07/2017 Morbid Obesity Body Mass Index 40.0-44.9 Adult 0 11/20/2016 Chronic Obstructive Pulmonary Disease 11/05/2015 Diabetes Mellitus Type 2 Without Complication Atrial Fibrillation Paroxysmal 01/19/2014 Overview: - S/P atrial fibrillation ablation 02/22/2017 - S/P atrial fibrillation ablation 02/22/2017 Hyperlipidemia Mixed 09/29/2013 Gastroesophageal Reflux Disease NOS 10/20/2012 Apnea Sleep Obstructive 08/25/2010 Presence Of Other Vascular Implants And Grafts 0 07/01/2010 Embolus Pulmonary Personal History 09/20/2009 Major Depressive Disorder, Recurrent, Unspecifie d 06/19/2009 Hypertension Essential Primary 08/26/2007 Family History Medical History Relation Name Comments Unexplained Father Tyshawn Selby started with ca accident Coronary artery disease Maternal Grandmother Salome garland at 95 Liver disease Mother Avis Selby Migraines Mother Avis Selby 94 Osteoporosis Mother Avis Selby Stroke Paternal Grandfather Ivan Selby 81 Breast cancer Paternal Grandmother Georgina Selby 1958 68yrs Relation Name Status Comments Brother Carter Selby Father Tyshawn Selby Maternal Grandmother Salome Ma Mother Avis Selby Paternal Grandfather Ivan Selby Paternal Grandmother Georigna Selby Social History Tobacco Use Types Packs/Day Years Used Date Smoking Tobacco: Former Cigarettes 1 - 03/31/2014 Smokeless Tobacco: Former Chew Quit: 1960 Tobacco Cessation:Counseling Given: Not Answered Comments:smoked 2-3 packs /day quit cold turkey Alcohol Use Standard Drinks/Week Comments Not Currently 0 (1 standard drink = 0.6 oz pur e alcohol) Humiliation, Afraid, Rape, and Kick questionnair e Answer Date Recorded Within the last year, have y ou been afraid of your partner or ex-partner? No 09/03/2022 Within the last year, have y ou been humiliated or emotionally abused in other ways by your partner or ex-partner? No Within the last year, have y ou been kicked, hit, slapped, or otherwise physically hurt by your partner or ex-partner? No 09/03/2022 Within the last year, have y ou been raped or forced to have any kind of sexual activity by your partner or ex-partner? No 09/03/2022 Social Connection and Isolat ion Panel [NHANES] Answer Date Recorded In a typical week, how many times do you talk on the phone with family, friends, or neighbors? More than three times a week 09/03/2022 How often do you get togethe r with friends or relatives? Twice a week 09/03/2022 How often do you attend chur ch or pentecostalism services? More than 4 times per year 09/03/2022 Do you belong to any clubs o r organizations such as adventist groups, unions, fraternal or athletic groups, or school groups? Yes 09/03/2022 How often do you attend meet ings of the clubs or organizations you belong to? More than 4 times per year 09/03/2022 Are you , , di vorced, , never , or living with a partner? 09/03/2022 AUDIT-C Answer Date Recorded Q1: How often do you have a drink containing alc ohol? Never 09/03/2022 Average Number of Drinks Not on file 023 Frequency of Binge Drinking Not on file 02/2023 Overall Financial Resource Strain (CARDIA) Answe r Date Recorded How hard is it for you to pa y for the very basics like food, housing, medical care, and heating? Somewhat hard 09/03/2022 [facility] - Occupational Stress Questionnaire Answer Date Recorded Do you feel stress - tense, restless, nervous, or anxious, or unable to sleep at night because your mind is troubled all the time - these days? Only a little 09/03/2022 Exercise Vital Sign Answer Date Recorde d On average, how many days pe r week do you engage in moderate to strenuous exercise (like a brisk walk)? 2 days 09/03/2022 On average, how many minutes do you engage in exercise at this level? 30 min 09/03/2022 Hunger Vital Sign Answer Date Recorded Within the past 12 months, y ou worried that your food would run out before you got the money to buy more. Never true 09/04/19 23 Within the past 12 months, t he food you bought just didn't last and you didn't have money to get more. Never true 09/03/2022 PRAPARE - Transportation Answer Date Re corded In the past 12 months, has l ack of transportation kept you from medical appointments or from getting medications? No 02/2023 In the past 12 months, has l ack of transportation kept you from meetings, work, or from getting things needed for daily living? No 09/03/2022 Housing Stability Vital Sign Answer Franco e Recorded In the last 12 months, was t here a time when you were not able to pay the mortgage or rent on time? No 09/03/2022 In the last 12 months, how many places have you lived? 1 09/03/2022 In the last 12 months, was t here a time when you did not have a steady place to sleep or slept in a senior care (including now)? No 09/03/2022 Nutrition Answer Date Recorded Nutrition: EVOO Fat Source No 09/03 On average, how many serving s of fruits and vegetables do you eat per day (serving size is equal to 1 cup or approximately the size of a tennis ball)? 2-3 09/03/2022 Dental Answer Date Recorded Dental: Regular Dentist Yes 09/04/19 Employment Answer Date Recorded Employment status Retired 09/03/2022 Education Answer Date Recorded What is the highest level of school you have completed or the highest degree you have received? Some college, no degree 09/03/2022 Sex and Gender Information Value Date Recorded Sex Assigned at Male 09/03/2022 3:21 PM SOLAR ENERGY INSTALLATION MANAGER Gender Identity Male 09/03/2022 3:21 PM SOLAR ENERGY INSTALLATION MANAGER Sexual Orientation Straight 09/03/2022 3: 21 PM SOLAR ENERGY INSTALLATION MANAGER Last Filed Vital Signs Vital Sign Reading Time Taken Comments Blood Pressure 110/65 08/03/2023 3:21 PM SOLAR ENERGY INSTALLATION MANAGER Pulse 75 08/03/2023 3:21 PM SOLAR ENERGY INSTALLATION MANAGER Temperature 36.9 ??C (98.4 ??F) 11/03/2022 11:00 AM C DT Respiratory Rate 17 11/03/2022 11:00 AM CDT Oxygen Saturation 93% 11/03/2022 11:00 AM CDT Inhaled Oxygen Concentration - - Weight 127 kg (280 lb 6.8 oz) 10/28/2022 9:38 AM CDT Height 173 cm (5' 8.11) 10/28/2022 9:38 AM CDT Body Mass Index 42.5 10/28/2022 9:38 AM CDT Plan of Treatment Health Maintenance Due Date Last Done Comments Depression Monitoring (PHQ-9) 1945 Diabetic Office Visit with F oot Exam 1945 Dilated Eye Exam 1945 Hepatitis C Screening 1945 Urine Albumin 1945 Hepatitis B Vaccines (1 of 3 - Risk 3-dose series) 2006 Hemoglobin A1C 04/30/2023 10/28/2022 COVID-19 Vaccine (2022-2 4 season) 2023 07/12/2023, 11/11/2022, 03/25/2022, Additional history exists Creatinine Level (Kidney Fun ction Test) 01/27/2024 01/26/2023, 2022, 10/30/2022, Additional history exists Influenza Vaccine (#1) 2024 , 03/25/2022, 03/21/2021, Additional history exists Office Visit for Blood Press ure Check / Re-check 08/03/2024 08/03/2023 DTaP,Tdap,and Td Vaccines (3 - Td or Tdap) 01/03/2029 01/03/2019, 11/27/2009 Pneumococcal vaccine (65+ years) Completed 05/17/2014, 02/04/2012, 02/24/2005 Zoster Vaccines Completed 01/28/2018, 09/26, 08/26/2007 Abdominal Aortic Aneurysm (A AA) Screen Discontinued 03/09/2022, 03/09/2022, 12/22/2019, Additional history exists Fall Risk Screen (Annual) Completed 08/03/2023 Medical Devices Implanted Type Area Egg Factory Worker Device Identifier Shelf Expiration Date Model / Serial / Lot Cmnt Bn Smp 40gm - [id number] Implanted:Qty : 1 on 10/28/2022 by Chepe Winkler M.D. at [facility] Bone Cement Left: Knee [place] 6191-1-00 1 / / Cmnt Bn Smp 40gm - [id number] Implanted:Qty : 1 on 10/28/2022 by Chepe Winkler M.D. at [facility] Bone Cement Left: Knee Jessica 6191-1-00 1 / / Hip [facility] Cmnt 24 - [id number] - [id number] Implanted:Qty : 1 on 10/28/2022 by Chepe Winkler M.D. at [facility] Hardware e.g. pins/screws/ rods Left: Knee Jessica [id number] 07/08/2027 [id number] / [id number] Bsplt Tib Prs Lt 5d Szg - [id number] Implanted:Qty : 1 on 10/28/2022 by Chepe Winkler M.D. at [facility] Knee Implant Left: Knee [employer] 04/26/2032 42-5320-0 79- / [id number] Kn Stm Prs Cmnt 14x30 - [id number] Implanted:Qty : 1 on 10/28/2022 by Chepe Winkler M.D. at [facility] Knee Implant Left: Knee [employer] 09/22/2032 42-5570-0 07-11 [id number] Kn Fem Prs Lt Cmnt Ps Sz-9 - [id number] Implanted:Qty : 1 on 10/28/2022 by Chepe Winkler M.D. at [facility] Knee Implant Left: Knee [employer] 11/12/2031 42-5006-0 66- [id number] Ins Tib Prs Vv Ps Lt 6 9 Gh 16 - [id number] Implanted:Qty : 1 on 10/28/2022 by Chepe Winkler M.D. at [facility] Knee Implant Left: Knee [employer] 09/26/2023 42-5126-0 09 [id number] Explanted Type Area Egg Factory Worker Device Identifier Shelf Expiration Date Model / Serial / Lot Hardware E.G. Pins/Screws/Ro ds Explanted:Qty: 7 on 10/28/2022 at [facility] Hardware e.g. pins/screws/ rods Left: Leg Description:6 screws and a t ibial willie Procedures Procedure Name Priority Date/Time Associated Diagnosis Comments EXTI BASIC METABOLIC PANEL, S/P Routine 01/26/2023 1:29 PM CDT HEMOGLOBIN A1C, B Routine 10/28/2022 9:[address] ABDOMEN PELVIS WITH IV CONTRAST RAD - Routine (most inpatients and all outpatients) 03/09/2022 12:52 PM CDT from Last 3 Months or Most Recently Relevant to Health Maintenance Results * (ABNORMAL) Hemoglobin A1c (10/28/2022 9:26 AM CDT) [facility] Hemoglobin A1c, B 6.2(H) 4.0 - 5.6 % 10/28/2022 11:47 AM CDT DTL Comment: Hemoglobin A1c values of 5.7-6.4 percent indicate an increased risk for developing diabetes mellitus. In diabetic patients, HbA1c goals should be discussed with healthcare provider. Blood (Blood, Venous) 10/28/2022 9:26 AM CDT 10/28/2022 9:44 AM CDT Juan Carlos Zheng M.D. LAB BLOOD ADD-ON [facility] [address] [place] [address], [place] [facility] [address] [place] [address] from Last 3 Months or Most Recently Relevant to Health Maintenance Advance Directives For more information, please contact: [phone] * Full Code (Latest Code Status on File) Date Activated Date Inactivated Comments 10/28/2022 8:21 PM 11/03/2022 3:34 PM Question Answer Comments Full Code: Not Discussed Due to: Patient not available Care Teams Assistant Unit Forester Relationship Specialty Start Date End Date Elsewhere, Pcp PCP - General Internal Medicine 09/08/22
--- OUTSIDE RECORDS SUMMARY | 2024-01-04 09:51 | XMS_ITS | Referral Summary ---
Author Organization [facility] Address [address] [place] [address] Care Team Providers Care Street Light Lamp Cleaner Name Role Phone Elsewhere, Pcp Primary Care Provider Unavailabl e Source Comments Patient records contain information from all sites at [facility]. For routine questions regarding patient records, call [phone] during business hours, M-F 8:00 AM - 5:00 PM Central Time. Record requests for emergency care only can be directed to [phone] at any time.[facility] Allergies Active Allergy Reactions Criticality Noted Date [...] tablet by mouth daily. noon 06/06/2022 Active ycrxoexy-hselvv-tih 1-D3-C-leticia 750-625-1,000 mg-mg-unit tablet Take 1 capsule [...] by mouth at bedtime. 08/12/2022 Active vitamins A,C,J-eyjd-nsahws (PRESERVISION AREDS) 7,160 Units-113 mg-100 Units per [...] Unspecifie d 06/19/2009 Hypertension Essential Primary 08/26/2007 Social History Tobacco Use Types Packs/Day Years [...] often do you attend chur ch or advent services? More than 4 times per year 09/03/2022 Do you belong to any clubs o r organizations such as latter-day groups, unions, fraternal or athletic groups, or [...] medical care, and heating? Somewhat hard 09/03/2022 [facility] [place] of Occupat ional Health - Occupational Stress Questionnaire Answer Date Recorded [...] money to buy more. Never true 09/04/19 Within the past 12 months, t he [...] place to sleep or slept in a halfway (including now)? No 09/03/2022 Nutrition Answer Date [...] Sex Assigned at Male 09/03/2022 3:21 PM MANAGER OF INTERNATIONAL Gender Identity Male 09/03/2022 3:21 PM MANAGER OF INTERNATIONAL Sexual Orientation Straight 09/03/2022 3: 21 PM MANAGER OF INTERNATIONAL Last Filed Vital Signs Vital Sign Reading Time Taken Comments Blood Pressure 110/65 08/03/2023 3:21 PM MANAGER OF INTERNATIONAL Pulse 75 08/03/2023 3:21 PM MANAGER OF INTERNATIONAL Temperature 36.9 ??C (98.4 ??F) 11/03/2022 11:00 AM C DT Respiratory Rate 17 11/03/2022 11:00 AM CDT Oxygen Saturation 93% 11/03/2022 11:00 AM CDT Inhaled Oxygen Concentration - - Weight 127 kg (280 lb 6.8 oz) 10/28/2022 9:38 AM CDT Height 173 cm (5' 8.11) 10/28/2022 9:38 AM CDT Body Mass Index 42.5 10/28/2022 9:38 AM CDT Plan of Treatment Not on file Medical Devices Implanted Type Area Director Of Strategic Marketing Device Identifier Shelf Expiration Date Model / Serial / Lot Cmnt Bn Smp 40gm - [id number] Implanted:Qty : 1 on 10/28/2022 by Chepe Winkler M.D. at [facility] Bone Cement Left: Knee Jessica 6191-00 1 / / Cmnt Bn p 40gm - [id number] Implanted:Qty : 1 on 10/28/2022 by Chepe Winkler M.D. at [facility] Bone Cement Left: Knee Jessica 6191- 1 / / Hip [facility] Cmnt 24 - [id number] - [id number] Implanted:Qty : 1 on 10/28/2022 by Chepe Winkler M.D. at [facility] Hardware e.g. pins/screws/ rods Left: Knee [place] [id number] 07/08/2027 [id number] / [id number] Bsplt Tib Prs Lt 5d Szg - [id number] Implanted:Qty : 1 on 10/28/2022 by Chepe Winkler M.D. at [facility] Knee Implant Left: Knee [employer] 04/26/2032 42-5320-0 79-01 / / [id number] Kn Stm Prs Cmnt 14x30 - [id number] Implanted:Qty : 1 on 10/28/2022 by Chepe Winkler M.D. at [facility] Knee Implant Left: Knee [employer] 09/22/2032 42-5570-0 01-14 / / [id number] Kn Fem Prs Lt Cmnt Ps Sz-9 - [id number] Implanted:Qty : 1 on 10/28/2022 by Chepe Winkler M.D. at [facility] Knee Implant Left: Knee [employer] 11/12/2031 42-5006-0 66-01 / / [id number] Ins Tib Prs Vv Ps Lt 6 9 Gh 16 - [id number] Implanted:Qty : 1 on 10/28/2022 by Chepe Winkler M.D. at [facility] Knee Implant Left: Knee [employer] 09/26/2023 42-5126-0 09-16 / / [id number] Explanted Type Area Director Of Strategic Marketing Device Identifier Shelf Expiration Date Model / Serial / Lot Hardware E.G. Pins/Screws/Ro ds Explanted:Qty: 7 on 10/28/2022 at [facility] Hardware e.g. pins/screws/ rods Left: [...] (ABNORMAL) Hemoglobin A1c (10/28/2022 9:26 AM CDT) [facility] Hemoglobin A1c, B 6.2(H) 4.0 - 5.6 % 10/28/2022 11:47 AM CDT DTL Comment: Hemoglobin A1c values of 5.7-6.4 percent indicate an increased risk for developing diabetes mellitus. In diabetic patients, HbA1c goals should be discussed with healthcare provider. Blood (Blood, Venous) 10/28/2022 9:26 AM CDT 10/28/2022 9:44 AM CDT Juan Carlos Zheng M.D. LAB BLOOD ADD-ON [facility] [address] [place] [address], [place] DTL [facility] [address] [place] [address] from Last 3 Months or Most Recently Relevant to Health Maintenance Advance Directives For more information, please contact: [phone] * Full Code (Latest Code Status on File) Date Activated Date Inactivated Comments 10/28/2022 8:21 PM 11/03/2022 3:34 PM Question Answer Comments Full Code: Not Discussed Due to: Patient not available Care Teams Street Light Lamp Cleaner Relationship Specialty Start Date End Date Elsewhere, Pcp PCP - General Internal Medicine 09/08/22
--- OUTSIDE RECORDS SUMMARY | 2024-01-04 09:51 | XMS_ITS | Clinical Summary ---
Author Organization [facility] Address [place], [place] [address] Care Team Providers Care Expediter Name Role Phone Beni Wise Primary Care Provider [phone] Victor M Guevara PA Unavailable [phone] Unavailable [phone] Allergies Active Allergy Reactions Criticality Noted Date Comments Ibuprofen Hives 06/07/2007 Buspirone Hcl Other - Describe In Comment Field 04/11/2014 Blurred vision, head pressure, dizzy. Citalopram Other - Describe In Comment Field 01/03/2014 Dizzy and nausea Lisinopril Cough 07/30/2010 Metformin Diarrhea 11/17/2017 Including long-acting formulation Metformin (Bulk) Other - Describe In Comment Field 03/15/2018 Failed both short-acting and XR formulations. Phenytoin Rash Low 07/30/2010 Dilantin Medications Medication Sig Dispensed Refills Start Date End Date Status acetaminophen (TYLENOL EXTRA STRGTH) 500 mg tablet Take 1,000 mg by mouth every 6 hours. 11/04/19 Active WalkerIndications: Aftercare following left knee joint replacement surgery Walker with front wheels for home use. Needs 99 months 1 Each 11/12/19 Active VITAMINS A,C,J-HOGR-LAVWDU (PRESERVISION AREDS) 2,148 mcg-113 mg-45 mg-17.4mg tablet Take 1 Tablet by mouth. Active CPAPIndications:Ob structive sleep apnea CPAP machine for home use 15 cmw, full face mask x1/3month with a full face cushion x1/mo 1 Each 11/18/19 23 Active amoxicillin (AMOXIL) 500 mg capsule 01/22/20 Active polyethylene glycoL (MIRALAX) 17 gram/scoop powderIndications: Chronic constipation Mix 0.5 scoops (8.5 g) in liquid then take by mouth once daily. 235 g 01/27/20 Active blood-glucose meterIndications:D izziness,Type 2 diabetes mellitus without complication, without long-term current use of insulin (HC) by abdominal subcutaneous route. 1 Kit 01/27/20 Active lancetsIndications :Dizziness,Type 2 diabetes mellitus without complication, without long-term current use of insulin (HC) As directed. Test 1 times per day. 100 Each 3 01/31/20 Active cetirizine (ZYRTEC) 10 mg tabletIndications: Seasonal allergies Take 1 Tablet (10 mg) by mouth once daily. 90 Tablet 3 02/06/20 Active glucosamine/chondr flores A sod (OSTEO BI-FLEX ORAL) Take 1 Tablet by mouth once daily. Active sennosides-docusat e (SENOKOT S) (8.6-50 mg) tabletIndications: Constipation, acute Take 1 Tablet by mouth once daily if needed for Constipation. 90 Tablet 3 03/08/20 23 Active meclizine (ANTIVERT) 25 mg tabletIndications: Dizziness Take 1 Tablet (25 mg) by mouth 3 times daily if needed for Vertigo. 30 Tablet 04/30/20 23 Active melatonin 5 mg tab tabletIndications: Insomnia, idiopathic Take 0.5 Tablets (2.5 mg) by mouth at bedtime. 90 Tablet 3 05/04/20 23 Active atorvastatin (LIPITOR) 40 mg tabletIndications: Hyperlipidemia, unspecified hyperlipidemia type Take 1 Tablet (40 mg) by mouth at bedtime. 90 Tablet 3 05/18/20 23 Active tamsulosin (FLOMAX) 0.4 mg capsuleIndications :Benign prostatic hyperplasia with incomplete bladder emptying TAKE TWO CAPSULES BY MOUTH EVERY DAY AFTER A MEAL 180 Capsule 2 08/20/19 24 Active omeprazole (PRILOSEC) 20 mg Delayed-Release capsuleIndications :Chronic GERD TAKE 1 CAPSULE BY MOUTH EVERY DAY BEFORE A MEAL 90 Capsule 3 09/06/19 24 Active Yaoul-4-DDO-EPA-Fi sh Oil (Fish OiL) 1,000 mg (120 mg-180 mg) cap Take by mouth. Active mometasone-formote rol (DULERA) 100-5 mcg/actuation inhalerIndications :Chronic obstructive pulmonary disease, unspecified COPD type (HC) Inhale 2 Puffs by mouth two times daily. 13 g 3 10/01/19 24 Active albuterol HFA (PRO-AIR; VENTOLIN; PROVENTIL) 90 mcg/actuation inhalerIndications :Chronic obstructive pulmonary disease, unspecified COPD type (HC) Inhale 1-2 Puffs by mouth every 4 hours if needed for Shortness Of Breath. 1 Each 10/04/19 24 Active venlafaxine (EFFEXOR XR) 75 mg cp24 Extended-Release capsuleIndications :Anxiety TAKE 1 CAPSULE BY MOUTH EVERY DAY WITH A MEAL 90 Capsule 1 10/21/19 24 Active metoprolol succinate (TOPROL XL) 25 mg Sustained-Release tabletIndications: Palpitations Take 1 Tablet (25 mg) by mouth once daily. 90 Tablet 10/22/19 24 Active oxybutynin XL (DITROPAN XL) 10 mg CR tabletIndications: OAB (overactive bladder) Take 1 Tablet (10 mg) by mouth once daily. 90 Tablet 3 11/02/19 24 Active semaglutide (Ozempic) 2 mg/dose (8 mg/3 mL) penIndications:Typ e 2 diabetes mellitus without complication, without long-term current use of insulin (HC),Morbid obesity (HC) INJECT 0.75 MLS (2 MG) UNDER THE SKIN ONCE WEEKLY 6 mL 11/29/19 24 Active LORazepam (ATIVAN) 1 mg tabletIndications: Anxiety and depression TAKE ONE-HALF TABLET BY MOUTH EVERY MORNING AND TAKE ONE TABLET BY MOUTH EVERY DAY AT NOON 50 Tablet 12/17/19 24 Active gabapentin (NEURONTIN) 100 mg capsuleIndications :Peripheral sensory neuropathy Take 3 Capsules (300 mg) by mouth two times daily. 180 Capsule 3 12/17/19 24 Active clindamycin (CLEOCIN) 300 mg capsule 12/09/19 24 Active warfarin (COUMADIN) 5 mg tabletIndications: Pulmonary embolism, bilateral (HC),Paroxysmal atrial fibrillation (HC),Anticoagulati on monitoring, INR range 2-3,Acute embolism and thrombosis of deep vein of left lower extremity (HC) Take by mouth 12/29: Hold; 12/30: Hold; 12/31: Hold; 01/01: Hold; 01/02: Hold; Otherwise 2.5 mg every Sun, Tue, Nat; 5 mg all other days in the evening OR as directed 12/31/19 24 Active Calcium Citrate 250 mg calcium tabletIndications: Nutritional deficiency TAKE 1 TABLET BY MOUTH TWO TIMES DAILY WITH MEALS 180 Tablet 2 01/03/20 24 Active Calcium Citrate 250 mg calcium tabletIndications: Nutritional deficiency Take 1 Tablet (250 mg) by mouth two times daily with meals. 180 Tablet 3 01/06/20 23 024 Discontinued tirzepatide (Mounjaro) 5 mg/0.5 mL penIndications:Typ e 2 diabetes mellitus without complication, without long-term current use of insulin (HC) Inject 0.5 mL (5 mg) subcutaneous once weekly. 2 mL 10/13/19 24 024 Discontinued(*P atient states no longer taking) gabapentin (NEURONTIN) 100 mg capsuleIndications :Peripheral sensory neuropathy Take 3 Capsules (300 mg) by mouth two times daily. 11/02/19 24 024 Discontinued(Re order (E-cancel not sent)) LORazepam (ATIVAN) 1 mg tabletIndications: Anxiety and depression TAKE ONE-HALF TABLET BY MOUTH EVERY MORNING AND TAKE ONE TABLET BY MOUTH EVERY DAY AT NOON 50 Tablet 11/12/19 24 024 Discontinued(Re order (E-cancel not sent)) warfarin (COUMADIN) 5 mg tabletIndications: Pulmonary embolism, bilateral (HC),Paroxysmal atrial fibrillation (HC),Anticoagulati on monitoring, INR range 2-3,Acute embolism and thrombosis of deep vein of left lower extremity (HC) Take by mouth 2.5 mg (5 mg x 0.5) every Sun, Tues, Thurs; 5 mg (5 mg x 1) all other days in the evening OR as directed 11/15/19 24 024 Discontinued(Ot her - add note to specify (E-cancel not sent)) furosemide (LASIX) 40 mg tabletIndications: Bilateral lower extremity edema Take 1 Tablet (40 mg) by mouth once daily in the morning for 7 days. 7 Tablet 12/17/19 24 024 cefadroxil (DURICEF) 1 gram tabletIndications: Complicated UTI (urinary tract infection) Take 1 g by mouth two times daily for 7 days. 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 -Given left knee steroid injection, well-tolerated - see procedure note -Continue activities as tolerated with walker -Provided knee brace for comfort/support -Continue PT for ROM, strength, gait -Rest, ice, and OTC pain mgmt as needed -Referral to Neurology -Follow up in 3 months for with repeat imaging Osteopenia 08/26/2018 Spondylolisthesis of lumbar region - anterolisthesis of L5 on S1 Grade 1 04/14/2018 Closed compression fracture of L1 lumbar vertebr a 04/14/2018 Facet arthropathy - L3-4 & L4-5 04/14/2018 Personal history of other venous thrombosis and embolism 01/07/2017 10/06/2022 Morbid obesity 11/20/2016 Chronic obstructive pulmonary disease 11/05/2015 Benign prostatic hypertrophy (BPH) with incomplete bladder emptying 05/22/2015 Elevated PSA 05/22/2015 Adenomatous colon polyp 03/13/2015 Overview: Colonoscopy 02/2015 polyp repeat in 5 years Colonoscopy 03/2020 three polyps, repeat in 3 years Type 2 diabetes mellitus without complication Anticoagulation monitoring, INR range 2-3 2013 Paroxysmal atrial fibrillation 01/19/2014 Overview: - S/P atrial fibrillation ablation 02/22/2017 - S/P atrial fibrillation ablation 02/22/2017 - S/P atrial fibrillation ablation 02/22/2017 Anxiety 01/03/2014 Post concussion syndrome 01/03/2014 Vertigo 01/03/2014 Gait instability 01/03/2014 Mixed hyperlipidemia 09/29/2013 Umbilical hernia 04/17/2013 Gastroesophageal reflux disease 10/20/2012 Polyp of duodenum 01/27/2011 Obstructive sleep apnea syndrome 08/25/2010 S/P insertion of IVC (inferior vena caval) filte r 07/01/2010 Presence of other vascular implants and grafts 0 07/01/2010 10/06/2022 Subdural hematoma 06/29/2010 Sensorineural hearing loss, bilateral 02/11/2010 Pulmonary embolism, bilateral 09/20/2009 Personal history of pulmonary embolism 0 10/06/2022 Major depressive disorder, recurrent, unspecifie d 06/19/2009 Tussive syncope 05/03/2009 Primary hypertension 08/26/2007 Resolved Problems Problem Noted Date Diagnosed Date Resolved Date PMR (polymyalgia rheumatica) 09/30/2018 03/15/2020 Acute embolism and thrombosi s of deep vein of left lower extremity 12/13/2006 03/21/2021 Encounters Date Type Department Care Team Description 01/03/2024 Telephone [facility] [address] [place] [address] Beni Wise DO Medication Management 01/02/2024 Refill [facility] [address] [place] [address] Beni Wise DO Refill Request (Calcium Citrate) 12/31/2023 Telephone [facility] [address] [place] [address] Beni Wise DO Anticoagulation (Hold orders- 02/11/24 Colonoscopy) 12/31/2023 Anticoagulation (warfarin) [facility] [address] [place] [address] 1, [facility] Anticoagulation (Chart update) 12/31/[address] [place] [address] Beni Wise DO Anticoagulation (Upcoming procedures) 12/18/2023 Anticoagulation (warfarin) [address] [place] [address] 1, [facility] Anticoagulation (Provider Visit) 12/17/2023 12:30 PM CDT Ancillary Procedure [address] [address] 12/17/2023 11:25 AM CDT Office Visit [address] [place] [address] Beni Wise DO Hospital F/U (post hospital follow up); Results (discuss chest xrays and discuss ER visit); Refill Request (Lorazepam and Gabapentin); Urinary Problem (burning pain periodically with urination, not consistent x 3 months); Toe Pain/problem (Great toe right foot-red sometimes turns black) 12/17/2023 Travel 12/10/[address] [place] [address] Jacob Mcrae MD BLOOD THINNERS / ASHVIN 12/09/2023 Orders Only [facility] Scanner 1 scan: (1-Ord) [facility], XR CHEST 1V PORTABLE, 12/09/2023 11/30/2023 11:00 AM CDT Orders Only [address] [address] Lab, [facility] 11/30/[address] [address] Beni Wise DO Anticoagulation (12/14/2023- Lumbar steroid injection) 11/30/2023 Anticoagulation (warfarin) [address] [address] 1, [facility] Anticoagulation 11/30/2023 Travel 11/28/[address] [address] Beni Wise DO Refill Request (Ozempic) 11/24/2023 Telephone [facility] [address] [place] [address] Beni Wise DO Anticoagulation (Hold Orders) 11/24/2023 Telephone [facility] [address] [place] [address] Beni Wise DO Dental Problem 11/18/[address] [address] Turner Lora MD Endoscopy; Screening; Anticoagulation 11/17/[address] [address] Jacob Mcrae MD Results 11/15/2023 1:15 PM CDT Orders Only [address] [address] Lab, [facility] 11/15/2023 11:45 AM CDT Ancillary Procedure [address] [id number] 11/15/2023 Anticoagulation (warfarin) [address] [address] 1, [facility] Anticoagulation 11/15/2023 Travel 11/12/[address] [address] Beni Wise DO Refill Request (Lorazepam) 11/08/2023 2:00 PM CDT Ancillary Procedure [address] [address] 11/08/2023 Travel 11/04/2023 10:30 AM CDT Office Visit [facility] [address] [place] [address] Davin Barreto DPM Follow Up (Recheck bilateral foot pain) 11/04/2023 Travel 11/02/2023 1:15 PM CDT Office Visit [address] [address] Beni Wise DO Head Pain/problem (Head pain in the RIGHT side ); Foot Problem (Neuropathy ) 11/02/2023 Travel 2023 Refill [facility] [address] [place] [address] Talia Leyva MD Refill Request (Mounjaro) 10/25/2023 Telephone [facility] [place] [facility] [address] [place] [address] Melvin Sneed MD Referral 10/22/2023 Telephone [facility] [address] [place] [address] Beni Wise DO Medication Management (metoprolol succinate (TOPROL XL) 25 mg Sustained-Release tablet/gabapentin (NEURONTIN) 100 mg capsule) 10/21/[address] [address] Beni Wise DO Refill Request (gabapentin (NEURONTIN) 100 mg capsule) 10/21/[address] [address] Beni Wise DO Refill Request (Warfarin, Venlafaxine) 10/18/2023 11:45 AM CDT Orders Only [address] [address] Lab, [facility] Lab 10/18/2023 10:40 AM CDT Office Visit [address] [address] Jacob Mcrae MD Musculoskeletal Problem (f/u compression fractures) 10/18/2023 Anticoagulation (warfarin) [address] [address] 1, [facility] Anticoagulation 10/18/2023 Travel 10/13/[address] [address] Beni Wise DO Refill Request (tirzepatide (Mounjaro) 7.5 mg/0.5 mL pen ) 10/13/2023 Telephone [facility] [address] [place] [address] Beni Wise DO Referral (Neurologist referral ) 10/13/2023 Telephone [facility] [address] [place] [address] Beni Wise DO Medication Management (tirzepatide (Mounjaro) 7.5 mg/0.5 mL pen) 10/08/2023 Refill [facility] [address] [place] [address] Beni Wise DO Refill Request (Lorazepam) 10/07/2023 Refill [facility] [address] [place] [address] Beni Wise DO Refill Request (Lorazepam) 10/06/2023 12:30 PM CDT Office Visit [facility] [address] [phone] Deanna Charles NP Head Pain/problem 10/06/2023 Travel 10/06/2023 Nurse Triage [facility] [address] [place] [address] Beni Wise DO Questions (BRAIN PAIN); Headache 10/05/2023 9:45 AM CDT Office Visit [facility] [address] [place] [address] Davin Barreto, DPM Toe Pain/problem (Ingrown right great toenail) 10/05/2023 Anticoagulation (warfarin) [facility] [address] [place] [address] 1, [facility] Anticoagulation from Last 3 Months Immunizations Name Administration Dates Next Due AMB Influenza, IIV3 (Age >=3 years)(Flu Clinic Only) 04/23/2010 COVID-19 Vaccine Spikevax (M oderna 50mcg/0.5mL) 12YO+ 1540-1024 Formula PF 07/12/2023 COVID-19 vaccine (Moderna 100mcg/0.5mL) PF, MDV 05/20/2021,09/13/2020,08/16/2020 COVID-19 vaccine (Pfizer-Bio NTech 30mcg/0.3mL) 12YO+ BIVALENT PF, MDV 03/25/2022 Influenza A (H1N1), Inactivated 06/07/2009 Influenza A (H1N1), Inactiva solis (Age >=3 Years) 06/07/2009 Influenza, High-dose Inactivated 04/02/2016,02/26 Influenza, IIV3 (Age 6-35 mos) 03/04/2011 Influenza, IIV3 (Age >=3 years) 04/17/20 13,03/25/2012,03/04/2011,2009,03/30/2008,03/31/2007,04/27/2006,1 07/07/2004 Influenza, IIV4 03/13/2014 Influenza, Inactivated AIIV4 (Age 65+ Years) Preserv Free 07/12/2023,03/25/2022,03/21/2021,2019 Influenza, Inactivated IIV3 (Age 65+ Years) Preserv Free 03/06/2019,05/23/2018,02/25/2017 Pneumococcal Poly,23-Valent (Pneumovax) 02/04/2012,02/24/2005 Pneumococcal conj 13-Valent (Prevnar 13) 05/17/2014 Td (Age >=7 Years) 07/02/1999 Tdap 01/03/2019,11/27/2009 Zoster (Shingrix-RZV, recombinant) 01/28/2018, Zoster (Zostavax-ZVL, live) 08/26/2007 Family History Medical History Relation Name Comments Good Health Brother 1 Good Health Brother 2 Good Health Brother 3 Clotting disorder Father Other Father MVA 1978 Stroke Maternal Grandfather Cancer-breast Maternal Grandmother Coronary artery disease Maternal Grandmother Heart Disease Maternal Grandmother [place] Heart Disease Mother coumadin Hypertension Mother Osteoporosis Mother Cancer-colon Neg. 1 Cancer-prostate Neg. 2 Stroke Paternal Grandfather Cancer Paternal Grandmother Anesthesia Problem No Family History Relation Name Status Comments Brother 1 Brother 2 Brother 3 Father (Age 59) stomach Maternal Grandfather (Age 90) [address] [place] Maternal Grandmother (Age 91) ol d age Mother (Age 92) old age Neg. 1 Neg. 2 Paternal Grandfather (Age 81) st [place] Paternal Grandmother (Age 67) ca ncer Social History Tobacco Use Types Packs/Day Years Used Date Smoking Tobacco: Former Cigarettes 3 36 1 07/04/1967 - 05/04/2004 Smokeless Tobacco: Never Tobacco Cessation:Counseling Given: Yes Comments:2-3 ppd Alcohol Use Standard Drinks/Week Comments Not Currently 1 (1 standard drink = 0.6 oz pur e alcohol) very rarely PHQ-2 Answer Date Recorded PHQ-2 TOTAL SCORE 0 08/16/2023 Social Connections Answer Date Recorded Frequency of Communication with Friends and Fami ly 0 01/05/2023 Financial Resource Strain Answer Date R ecorded Difficulty of Paying Living Expenses 3 01/05/2023 Difficulty of Paying Living Expenses Not on file 01/05/2023 Food Insecurity Answer Date Recorded Worried About Running Out of Food in the Last Ye ar 1 01/05/2023 Transportation Needs Answer Date Record ed Lack of Transportation (Medical) 1 01/05/2023 Housing Stability Answer Date Recorded Unable to Pay for Housing in the Last Year 1 01/05/2023 Sex and Gender Information Value Date Recorded Sex Assigned at Not on file Gender Identity Male 11/17/2023 4:46 PM CDT Sexual Orientation Straight 11/17/2023 4: 46 PM CDT Obstetrics History Last Filed Vital Signs Vital Sign Reading Time Taken Comments Blood Pressure 131/75 12/17/2023 11:41 AM CDT Pulse 92 12/17/2023 11:41 AM CDT Temperature 36.3 ??C (97.4 ??F) 10/18/2023 10:55 AM C DT Respiratory Rate 20 10/06/2023 1:05 PM CDT Oxygen Saturation 92% 12/17/2023 11:41 AM CDT Inhaled Oxygen Concentration - - Weight 130.9 kg (288 lb 8 oz) 12/17/2023 11:41 A M CDT Height 172.7 cm (5' 8) 10/06/2023 1:05 PM CDT Body Mass Index 43.87 10/06/2023 1:05 PM CDT Plan of Treatment Upcoming Encounters Date Type Department Care Team (Late st Contact Info) Description 01/04/2024 11:00 AM CDT Office Visit [facility] [address] [place] [phone] Jacob Mcrae MD [address] [place] [address] Arrived 01/05/2024 9:40 AM CDT Office Visit [facility] [place] [facility] [address] [place] [address] Melvin Sneed MD [address] [place] [address] 01/06/2024 10:15 AM CDT Office Visit [facility] [address] [place] [address] Davin Barreto DPKalina [address] [place] [address] 01/13/2024 9:45 AM CDT Orders Only [facility] [address] [place] [address] [facility] [place] 01/25/2024 9:45 AM CDT Preop Visit [facility] [address] [place] [address] Beni Wise DO [address] [place] [address] 02/11/2024 9:15 AM CDT Office Visit [facility] [address] [facility] [phone] Turner Lora MD [address] [place] [address] Health Maintenance Due Date Last Done Comments COVID-19 vaccine series ( season) 2023 07/12/2023, 11/11/2022, 03/25/2022, Additional history exists Influenza for age 65+ 02/27/2024 07/12/2023 , 03/25/2022, 03/21/2021, Additional history exists Low Dose CT (for lung CA) ag e 50-80 05/06/2024 05/06/2023 Medicare Wellness for age 65+ 08/16/2024, 08/06/2022, 03/21/2021, Additional history exists Depression screening for age 12+ 08/20/2024 08/20/2023, 08/16/2023, 08/16/2023, Additional history exists BMI (ht and wt on same day) for age 18+ 10/05/2024 10/06/2023, 08/16/2023, 07/12/2023, Additional history exists Tetanus booster 01/03/2029 01/03/2019, 07/2009, 07/02/1999 Pneumococcal series for age 65+ Completed 05/17/2014, 02/04/2012, 02/24/2005 Hepatitis C screening for ag e 18-79 Completed 12/12/2014 Zoster (shingles) series for age 50+ Completed 01/28/2018, 10/14/2017, 08/26/2007 Tdap Completed 01/03/2019, 11/27/2009 Procedures Procedure Name Priority Date/Time Associated Diagnosis Comments AMB EPIDURAL STEROID INJECTION Routine 01/04/2024 8:02 AM CDT DDD (degenerative disc disease), lumbar Facet arthropathy - L3-4 & L4-5 Lumbar radiculopathy XR CHEST 2 VIEWS PA AND LATERAL MERYL 12/17/2023 12:49 PM CDT Fatigue, unspecified type Low O2 saturation URINE CULTURE Add On 12/17/2023 12:40 PM CDT Dysuria URINALYSIS MICROSCOPIC Routine 12/17/2023 12:40 PM CDT Dysuria UA W/ SEDIMENT EXAM REFLEXED PER CRITERIA Routine 12/17/2023 12:40 PM CDT Dysuria URINE ALBUMIN TO CREATININE RATIO, RANDOM Routine 12/17/2023 12:40 PM CDT Type 2 diabetes mellitus without complication, without long-term current use of insulin (HC) WHITE BLOOD COUNT Routine 12/17/2023 12: 19 PM CDT Fatigue, unspecified type PROTIME-INR STAT 12/17/2023 12:19 PM CDT Pulmonary embolism, bilateral (HC) Paroxysmal atrial fibrillation (HC) Anticoagulation monitoring, INR range 2-3 SCAN-RADIOLOGY REPORT 12/09/2023 12:00 AM CDT INR,POCT Routine 11/30/2023 11:13 AM CDT Pulmonary embolism, bilateral (HC) Paroxysmal atrial fibrillation (HC) Anticoagulation monitoring, INR range 2-3 INR,POCT Routine 11/15/2023 12:32 PM CDT Pulmonary embolism, bilateral (HC) Paroxysmal atrial fibrillation (HC) Anticoagulation monitoring, INR range 2-3 MR SPINE LUMBAR WO Routine 11/15/2023 12 :29 PM CDT Facet arthropathy - L3-4 & L4-5 DDD (degenerative disc disease), lumbar Lumbar radiculopathy CT CHEST LOW DOSE WO FOR LUNG RADS 0 OR 3 FOLLOW UP Routine 11/08/2023 1:15 PM CDT Lung nodules BASIC METABOLIC PANEL Routine 11/02/2023 2:29 PM CDT Type 2 diabetes mellitus without complication, without long-term current use of insulin (HC) INR,POCT Routine 10/18/2023 12:00 PM CDT Pulmonary embolism, bilateral (HC) Paroxysmal atrial fibrillation (HC) Anticoagulation monitoring, INR range 2-3 CT CHEST SCREENING LOW DOSE WO CONTRAST Routine 05/06/2023 4:15 PM THREAD DRAWER Encounter for screening for lung cancer Personal history of nicotine dependence ANTI HCV Routine 12/12/2014 8:52 AM CDT Unspecified hereditary and idiopathic peripheral neuropathy Abnormality of gait Dizziness and giddiness from Last 3 Months or Most Recently Relevant to Health Maintenance Results * XR CHEST 2 VIEWS PA AND LATERAL (12/17/2023 12:49 PM CDT) Anatomical Region Laterality Modality CHEST, THORAX, Lung, HEART Compu solis Radiography 12/17/2023 2:48 PM CDT Impressions 12/17/2023 2:48 PM CDT Clear lungs. Dictated by Ike Palomares MD @ 12/17/2023 2:48:49 PM (Electronically Signed) Narrative 12/17/2023 2:48 PM CDT For Patients: ??As a result of the Cures Act, medical imaging exams and procedure reports are released immediately into your electronic medical record. ??You may view this report before your referring provider. ??If you have questions, please contact your health care provider. INDICATION: Fatigue, unspecified type TECHNIQUE: Chest 2 views COMPARISON: 11/03/2018 FINDINGS: Aortic tortuosity. Vascular calcifications. Discogenic spurring. Clear lungs. Procedure Note Ike Palomares MD - 12/17/2023 For Patients: As a result of the Cures Act, medical imagingexams and procedure reports are released immediately into your electronicmedical record. You may view this report before your referring provider.If you have questions, please contact your health care provider. INDICATION: Fatigue, unspecified type TECHNIQUE: Chest 2 views COMPARISON: 11/03/2018 FINDINGS: Aortic tortuosity. Vascular calcifications. Discogenic spurring. Clearlungs. IMPRESSION: Clear lungs. Dictated by Ike Palomares MD @ 12/17/2023 2:48:49 PM (Electronically Signed) Adei Alonsora DO GENERAL IMAGING * (ABNORMAL) URINALYSIS MICROSCOPIC (12/17/2023 12:40 PM CDT) RBC 3-5(A) 0-2, None Seen /HPF 12/17/2023 12:50 PM CDT [facility] WBC 11-25(A) 0-2, 3-5, None Seen /HPF 12/17/2023 12:50 PM CDT [facility] BACTERIA Few None Seen, Rare, Few Bacteria/H PF 12/17/2023 12:50 PM CDT [facility] EPITHELIAL CELLS Many(A) None Seen, Few Epi/HPF 12/17/2023 12:50 PM CDT [facility] Mucus Present 12/17/2023 12:50 PM CDT [facility] HYALINE CASTS 0-2 0-2, 3-5 /LPF 12/17/2023 12:50 PM CDT [facility] Urine URINE SPECIMEN / Unknown Non-Blood / Unknown 12/17/2023 12:40 PM CDT 12/17/2023 12:41 PM CDT [facility] Performing Organization Address City/[facility]/ZIP Co de Phone Number [facility] [address] [place] [address], * URINE CULTURE (12/17/2023 12:40 PM CDT) CULTURE No growth (<1,000 CFU/mL) 12/18/2023 6:11 PM CDT [facility] Urine URINE SPECIMEN / Unknown Non-Blood / Unknown 12/17/2023 12:40 PM CDT 12/17/2023 12:41 PM CDT [facility]CRO[facility] [address] [place] [address], [place] * URINE ALBUMIN TO CREATININE RATIO, RANDOM (12/17/2023 12:40 PM CDT) ALB RAND URINE 36.9 mg/L 12/17/2023 10:32 PM CDT [facility] CREATININE,URIN E 1.86 g/L 12/17/2023 10:32 PM CDT [facility] ALBUMIN TO CREATININE RATIO,RAND UR 19.8 <30.0 mg/g creat 12/17/2023 10:32 PM CDT [facility] Urine URINE SPECIMEN / Unknown Non-Blood / Unknown 12/17/2023 12:40 PM CDT 12/17/2023 12:41 PM CDT Narrative [facility] - 12/17/2023 10:32 PM CDT If Albumin to Creatinine Ratio is elevated, consider the following: ? Elevations seen with incipient nephropathy associated ?? with diabetes mellitus or hypertension. Stress, exercise,hematuria, ?? and urinary tract infection may also produce elevated results. If clinically indicated, confirm with ?24 Hour Albumin to Creatinine Ratio. ?? Beni Wise DO URINE [facility] [address] [place] [address], [place] * (ABNORMAL) UA W/ SEDIMENT EXAM REFLEXED PER CRITERIA (12/17/2023 12:40 PM CDT) COLOR Yellow Yellow Color 12/17/2023 12:49 PM CDT [facility] CLARITY Clear Clear Clarity 12/17/2023 12:49 PM CDT [facility] SPECIFIC GRAVITY,URINE 1.025 1.010, 1.015, 1.020, 1.025 12/17/2023 12:49 PM CDT [facility] PH,URINE 7.0 6.0, 7.0, 8.0, 5.5, 6.5, 7.5, 8.5 12/17/2023 12:49 PM CDT [facility] UROBILINOGEN, QUALITATIVE Normal Normal EU/dl 12/17/2023 12:49 PM CDT [facility] PROTEIN, URINE Negative Negative mg/dL 12/17/2023 12:49 PM CDT [facility] GLUCOSE, URINE Negative Negative mg/dL 12/17/2023 12:49 PM CDT [facility] KETONES,URINE Negative Negative mg/dL 12/17/2023 12:49 PM CDT [facility] BILIRUBIN,URI NE Negative Negative 12/17/2023 12:49 PM CDT [facility] OCCULT BLOOD,URINE Negative Negative 12/17/2023 12:49 PM CDT [facility] NITRITE Negative Negative 12/17/2023 12:49 PM CDT [facility] LEUKOCYTE ESTERASE Small(A) Negative 12/17/2023 12:49 PM CDT [facility] Urine URINE SPECIMEN / Unknown Non-Blood / Unknown 12/17/2023 12:40 PM CDT 12/17/2023 12:41 PM CDT Beni Jose Alejandroludwinra CHONG URINE [facility] [address] [place] [address], [place] [phone] * WHITE BLOOD COUNT (12/17/2023 12:19 PM CDT) WHITE BLOOD COUNT 5.5 4.5 - 11.0 thou/cu mm 12/17/2023 12:27 PM CDT [facility] Blood BLOOD SPECIMEN / Unknown Venipuncture / Unknown 12/17/2023 12:19 PM CDT 12/17/2023 12:20 PM CDT Annmarieiraj [facility] HEMATOLOGY [facility] [address] [place] [address], [place] [phone] * (ABNORMAL) PROTIME-INR (12/17/2023 12:19 PM CDT) INR 2.5(H) <1.3 12/17/2023 7:24 PM CDT [facility] PROTIME 27.3(H) 10.3 - 12.3 sec 12/17/2023 7:24 PM CDT [facility] Blood BLOOD SPECIMEN / Unknown Venipuncture / Unknown 12/17/2023 12:19 PM CDT 12/17/2023 12:20 PM CDT Narrative [facility] - 12/17/2023 7:24 PM CDT ?Therapeutic Range 2.0-3.0 for most anticoagulated patients 2.5-3.5 or 4.0 for high risk patients The INR is only used for patients on stable oral anticoagulant therapy. It makes no significant contribution to the diagnosis or treatment of patients whose Protime is prolonged for other reasons. INR results are increased when heparin levels exceed 1.0 U/mL, which corresponds to an aPTT >125 seconds if the patient is on UFH. Beni [email or web address] CHONG HEMATOLOGY Performing Organization Address City/[facility]/ZIP Co de Phone Number [facility] [address] [place] [address], [place] * SCAN-RADIOLOGY REPORT (12/09/2023 12:00 AM CDT) Anatomical Region Laterality Modality Other Scanner OTHER * (ABNORMAL) INR,POCT (11/30/2023 11:13 AM CDT) Only the most recent of3 resultswithin the time period is included. INR 2.6(H) <1.3 11/30/2023 11:16 AM CDT [facility] Blood BLOOD SPECIMEN / Unknown 11/30/2023 11:13 AM CDT 11/30/2023 11:16 AM CDT Narrative [facility] - 11/30/2023 11:16 AM CDT ?Therapeutic Range 2.0-3.0 for most anticoagulated patients 2.5-3.5 or 4.0 for high risk patients Beni [email or web address] DO LABORATORY Performing Organization Address City/[facility]/ZIP Co de Phone Number [facility] [address] [place] [address], [place] [phone] * MR SPINE LUMBAR WO (11/15/2023 12:29 PM CDT) Anatomical Region Laterality Modality Spine, LUMBAR SPINE Magnetic Res onance 11/15/2023 4:06 PM CDT Narrative 11/15/2023 4:06 PM CDT For Patients: ??As a result of the Cures Act, medical imaging exams and procedure reports are released immediately into your electronic medical record. ??You may view this report before your referring provider. ??If you have questions, please contact your health care provider. Indication: Radiculopathy. Technique: Multiplanar, multisequence MRI of the lumbar spine was performed without intravenous contrast. Comparison: MR lumbar spine 12/20/2014. CT abdomen/pelvis 03/09/2022. Findings: There are 5 lumbar type vertebral segments identified. Stable superior endplate chronic compression deformities of T12 and L1. No acute fracture. There is no discrete T1 hypointense marrow infiltrating process. The conus medullaris terminates at T12-L1, normal. Cauda equina appears unremarkable. T12-L1: No spinal canal or neural foraminal stenosis. L1-2: No spinal canal or neural foraminal stenosis. Mild facet arthropathy. L2-3: No spinal canal or neural foraminal stenosis. Mild facet arthropathy. L3-4: ??No spinal canal narrowing. Mild neural foraminal narrowing. Mild facet arthropathy. L4-5: Disc degeneration. No spinal canal narrowing. Mild neural foraminal narrowing. Qepo-up-pwvmgrov facet arthropathy. L5-S1: ??Disc degeneration. No spinal canal or neural foraminal narrowing. Moderate facet arthropathy. Mild sacroiliac joint osteoarthritis. Impression: 1. Stable chronic superior endplate compression deformities of T12 and L1. 2. At L3-4 and L4-5, mild neural foraminal narrowing. 3. Logf-iy-njhpskha multilevel facet arthropathy. Dictated by Dmitriy Gil MD @ 11/15/2023 4:06:38 PM (Electronically Signed) Procedure Note Dmitriy Gil, - 11/15/2023 For Patients: As a result of the Cures Act, medical imagingexams and procedure reports are released immediately into your electronicmedical record. You may view this report before your referring provider.If you have questions, please contact your health care provider. Indication: Radiculopathy. Technique: Multiplanar, multisequence MRI of the lumbar spine was performed withoutintravenous contrast. Comparison: MR lumbar spine 12/20/2014. CT abdomen/pelvis 03/09/2022. Findings: There are 5 lumbar type vertebral segments identified. Stable superiorendplate chronic compression deformities of T12 and L1. No acute fracture.There is no discrete T1 hypointense marrow infiltrating process. The conus medullaris terminates at T12-L1, normal. Cauda equina appearsunremarkable. T12-L1: No spinal canal or neural foraminal stenosis. L1-2: No spinal canal or neural foraminal stenosis. Mild facetarthropathy. L2-3: No spinal canal or neural foraminal stenosis. Mild facetarthropathy. L3-4: No spinal canal narrowing. Mild neural foraminal narrowing. Mildfacet arthropathy. L4-5: Disc degeneration. No spinal canal narrowing. Mild neural foraminalnarrowing. Dqsq-ur-mlzhtkzm facet arthropathy. L5-S1: Disc degeneration. No spinal canal or neural foraminal narrowing.Moderate facet arthropathy. Mild sacroiliac joint osteoarthritis. Impression: 1. Stable chronic superior endplate compression deformities of T12 andL1. 2. At L3-4 and L4-5, mild neural foraminal narrowing. 3. Vati-de-rujjpjmp multilevel facet arthropathy. Dictated by Dmitriy Gil MD @ 11/15/2023 4:06:38 PM (Electronically Signed) Jacob Mcrae MD MR * CT CHEST LOW DOSE WO FOR LUNG RADS 0 OR 3 FOLLOW UP (11/08/2023 1:15 PM CDT) Anatomical Region Laterality Modality Computed Tomogra phy 11/09/2023 2:34 PM CDT Addenda Addendum by Ike Palomares MD on 11/10/2023 2:07 PM CDT ??ADDENDUM ? ADDENDUM ? ADDENDUM LUNG-RADS CATEGORY: 2: Benign. RADIOLOGIST RECOMMENDATION: Continue annual screening with low-dose CT chest in 12 months. CRL/bhe Impressions 11/09/2023 2:34 PM CDT No suspicious nodules. Negative for lung cancer screening purposes. LUNG-RADS CATEGORY: 2: Benign. RADIOLOGIST RECOMMENDATION: Continue annual screening with low-dose CT chest in 12 months. Please note that all CT scans at this facility use dose modulation, iterative reconstruction, and/or weight-based dosing when appropriate to reduce radiation dose to as low as reasonably achievable. Dictated by Ike Palomares MD @ 11/09/2023 2:34:12 PM (Electronically Signed) Narrative 11/09/2023 2:34 PM CDT For Patients: ??As a result of the Century Cures Act, medical imaging exams and procedure reports are released immediately into your electronic medical record. ??You may view this report before your referring provider. ?? If you have questions, please contact your health care provider. INDICATION: Follow up nodules TECHNIQUE: Low-dose lung cancer screening non-contrast CT chest. Dose reduction techniques were used. COMPARISON: 05/06/2023 FINDINGS: NODULES: Pleural-based densities along the upper margin of the left major fissure and the lower anterior margin of the right anterior lung/major fissure are similar. No suspicious pulmonary nodule. LUNGS AND PLEURA: Mild patchy areas of scarring are present. Emphysema. MEDIASTINUM: No adenopathy. CORONARY ARTERY CALCIFICATION: ??Present. LIMITED UPPER ABDOMEN: Unremarkable. MUSCULOSKELETAL: Multilevel degenerative changes are present. Adei Jose Alejandroqra DO CT * (ABNORMAL) BASIC METABOLIC PANEL (11/02/2023 2:29 PM CDT) SODIUM 140 136 - 145 mmol/L 11/03/2023 1:13 AM CDT [facility] POTASSIUM 4.4 3.5 - 5.1 mmol/L 11/03/2023 1:13 AM CDT [facility]Fu[facility] CHLORIDE 104 98 - 107 mmol/L 11/03/2023 1:13 AM CDT [facility] [employer] [facility] CO2,TOTAL 24 22 - 29 mmol/L 11/03/2023 1:13 AM CDT [facility] [employer] [facility] ANION GAP 12 5 - 18 11/03/2023 1:13 AM CDT [facility] GLUCOSE 91 70 - 99 mg/dL 11/03/2023 1:13 AM CDT [facility] CALCIUM 8.9 8.8 - 10.2 mg/dL 11/03/2023 1:13 AM CDT [facility] BUN 15 8 - 23 mg/dL 11/03/2023 1:13 AM CDT [facility] CREATININE 1.15 0.70 - 1.20 mg/dL 11/03/2023 1:13 AM CDT [facility] BUN/CREAT RATIO 13 10 - 20 1:13 AM T [facility] eGFR 66(L) >90 mL/min/1.7 3m2 11/03/2023 1:13 AM T [facility] Comment:As of 2021, eG FR is calculated by the CKD-EPI creatinine equation without race adjustment. ??eGFR can be influenced by muscle mass, exercise, and diet. ??The reported eGFR is an estimation only and is only applicable if the renal function is stable. Blood BLOOD SPECIMEN / Unknown Venipuncture / Unknown 11/02/2023 2:29 PM CDT 11/02/2023 2:30 PM CDT Beni Wise DO CHEMISTRY [facility] [address] [place] [address], * CT CHEST SCREENING LOW DOSE WO CONTRAST [[id number]] (05/06/2023 4:15 PM THREAD DRAWER) Anatomical Region Laterality Modality Computed Tomogra phy Impressions 05/07/2023 11:16 AM THREAD DRAWER 1. Densities adjacent to the right and left major fissure probably pleural thickening rather than true nodules. Scarring at the lung bases. No other pulmonary pathology. 2. Chronic atherosclerotic disease. 3. Degenerative spine. Low densities in the thoracic vertebra typical for a hemangioma in T1 and likely similar changes in T6 and 9, although this should be monitored on future studies. Lung rads category 3: Probably benign. Recommend a follow-up CT in 6 months to assess for stability. Please note that all CT scans at this facility use dose modulation, iterative reconstruction and/or weight-based dosing when appropriate to reduce radiation dose to as low as reasonably achievable. ?? Dictated by: Sarai De La Torre MD @05/07/2023 7:05:12 AM/CRL:ayan Narrative 05/07/2023 11:16 AM THREAD DRAWER For Patients: As a result of the Century Cures Act, medical imaging exams and procedure reports are released immediately into your electronic medical record. ??You may view this report before your referring provider. ?? If you have questions, please contact your health care provider. CT CHEST SCREENING LOW DOSE WITHOUT CONTRAST, 05/06/2023 INDICATION: Lung cancer screening. TECHNIQUE: CT chest without contrast. COMPARISON: None. FINDINGS: Cardiovascular structures: Heart size is normal. Thoracic aorta and main pulmonary artery are normal in caliber. Atherosclerotic calcification of the coronary arteries and thoracic aorta. Mediastinum and melba: No sign of mass or adenopathy. Thyroid normal. Lungs: Triangular 9 mm subpleural density at the superior lateral margin of the left major fissure (3/34 and 5/52) more likely thickening than a true nodule. Similar findings inferomedial aspect of the right major fissure (3/80). Linear scarring posterior left lower lobe and minimally in the medial right middle lobe. No other pulmonary nodules, mass or consolidation. The airways are clear. Pleura and pericardium: No effusions. Chest wall and axilla: No mass or adenopathy. Bones: Degenerative spine. Hemangioma T1, 6 and 9. Schmorl's node defects with superior endplate compression T7, T12 and L1. Upper abdomen: Unremarkable. Adei Jose Alejandroqra DO CT * ANTI HCV (12/12/2014 8:52 AM CDT) HEPATITIS C ANTIBODY Non-Reacti ve Non-Reacti ve 12/12/2014 2:47 PM CDT [facility] Blood specimen (specimen) BLOOD SPECIMEN / Unknown Venipuncture / Unknown 12/12/2014 8:52 AM CDT 12/12/2014 9:01 AM CDT Narrative [facility] - 12/12/2014 2:47 PM CDT Antibodies to HCV not detected; does not exclude the possibility of exposure to HCV. Carter Cedeno MD SEND OUTS [facility] [address] [place] [address], from Last 3 Months or Most Recently Relevant to Health Maintenance Advance Directives Documents on File Type Date Recorded Patient Maintenance Repairer Expl anation POLST 11/10/2022 12:41 PM Full code * Full Code (Latest Code Status on File) Date Activated Date Inactivated Comments 02/22/2017 9:28 AM 02/23/2017 12:56 PM Care Teams Expediter Relationship Specialty Start Date End Date Beni Wise DO [address] [place] [address] PCP - General Family Practice 11/05/21 Victor M Guevara PA [address] [place] [address] Consulting Physician Physician Mineral Surveyor 05/13/[address] [facility] [place] [address] Registered Dietitian Lead Instructor/Flight Attendant 05/13/22
--- OUTSIDE RECORDS SUMMARY | 2024-01-04 09:51 | XMS_ITS ---
Author Organization [facility] Address [address] [place] [address] Care Team Providers Care Optical Manufacturing Technician Name Role Phone Unavailable Unavailable Unavailable Surgery Details Not on file Complications Check Surgery Details section. Procedure Estimated Blood Loss Check Surgery Details section. Procedure Findings Check Surgery Details section. Procedure Specimens Taken Check Surgery Details section.
== END 2024-01-04 09:47 | disposition home or self-care (01) ==
LOC: INJ CL 09:48
PROVIDERS: PCP Student in an Organized Health Care Education/Training Program; Visit Provider Family Medicine
DX: M54.16 Radiculopathy, lumbar region (principal); M48.062 Spinal stenosis, lumbar region with neurogenic claudication; M51.36 Other intervertebral disc degeneration, lumbar region
CPT/HCPCS: 62323; J0702; Q9966

== ENCOUNTER 2024-02-11 08:55 | Outpatient (CLI) | payer MEDICARE, BC, SELFPAY ==
--- OUTSIDE RECORDS SUMMARY | 2024-02-11 08:59 | XMS_ITS | Clinical Summary ---
Author Organization [facility] Address [address] [place] [address] Care Team Providers Care Port Crane Operator Name Role Phone Elsewhere, Pcp Primary Care Provider Unavailabl e Source Comments Patient records contain information from all sites at [facility]. For routine questions regarding patient records, call [phone] during business hours, M-F 8:00 AM - 5:00 PM Central Time. Record requests for emergency care only can be directed to [phone] at any time.[facility] Allergies Active Allergy Reactions Criticality Noted Date [...] tablet by mouth daily. noon 06/06/2022 Active ustponan-knakov-qcb 1-D3-C-leticia 750-625-1,000 mg-mg-unit tablet Take 1 capsule [...] by mouth at bedtime. 08/12/2022 Active vitamins A,C,R-jdnb-wfmjbv (PRESERVISION AREDS) 7,160 Units-113 mg-100 Units per [...] 2 Without Complication Atrial Fibrillation Paroxysmal 01/19/2014 Overview (09/09/2022): - S/P atrial fibrillation ablation 02/22/2017 - [...] Selby Paternal Grandfather Ivan Selby Paternal Grandmother Georgina Selby Social History Tobacco Use Types Packs/Day [...] often do you attend chur ch or christian services? More than 4 times per year 09/03/2022 Do you belong to any clubs o r organizations such as christianity groups, unions, fraternal or athletic groups, or [...] medical care, and heating? Somewhat hard 09/03/2022 [facility] - Occupational Stress [...] place to sleep or slept in a fdc (including now)? No 09/03/2022 Nutrition Answer Date [...] Sex Assigned at Male 09/03/2022 3:21 PM WAREHOUSE ASSOCIATE Gender Identity Male 09/03/2022 3:21 PM WAREHOUSE ASSOCIATE Sexual Orientation Straight 09/03/2022 3: 21 PM WAREHOUSE ASSOCIATE Last Filed Vital Signs Vital Sign Reading Time Taken Comments Blood Pressure 110/65 08/03/2023 3:21 PM WAREHOUSE ASSOCIATE Pulse 75 08/03/2023 3:21 PM WAREHOUSE ASSOCIATE Temperature 36.9 ??C (98.4 ??F) 11/03/2022 11:00 [...] of 3 - Risk 3-dose series) 2006 COVID-19 Vaccine (2022-07 4 season) 2023 07/12/2023, 11/11/2022, 03/25/2022, Additional history exists Hemoglobin A1C 02/14/2024 08/16/2023, 05/0 08/2022, 08/06/2022, Additional history exists Influenza Vaccine (#1) 2024 , 03/25/2022, 03/21/2021, Additional history exists Office Visit for Blood Press ure Check / Re-check 08/03/2024 08/03/2023 Creatinine Level (Kidney Fun ction Test) 01/09/2025 01/10/2024, 11/02/2023, 01/26/2023, Additional history exists DTaP,Tdap,and Td Vaccines (3 - Td or Tdap) 01/03/2029 01/03/2019, 11/27/2009 Pneumococcal vaccine (65+ years) Completed 05/17/2014, 02/04/2012, 02/24/2005 Zoster Vaccines Completed 01/28/2018, 09/26, 08/26/2007 Abdominal Aortic Aneurysm (A AA) Screen Discontinued 03/09/2022, 03/09/2022, 12/22/2019, Additional history exists Fall Risk Screen (Annual) Completed 08/03/2023 Medical Devices Implanted Type Area Radio Script Writer Device Identifier Shelf Expiration Date Model / Serial / Lot Cmnt [facility] 40 - [id number] Implanted:Qty : 1 on 10/28/2022 by Chepe Winkler M.D. at [facility] Bone Cement Left: Knee [place] 6191-1-00 1 / / Cmnt Bn [facility] 40gm - [id number] Implanted:Qty : 1 on 10/28/2022 by Chepe Winkler M.D. at [facility] Bone Cement Left: Knee [place] 6191-1-00 1 / / Hip [facility] Cmnt 24 - [id number] - [id number] Implanted:Qty : 1 on 10/28/2022 by Chepe Winkler M.D. at [facility] Hardware e.g. pins/screws/ rods Left: Knee [employer] [id number] 07/08/2027 [id number] / [id number] Bsplt Tib Prs Lt 5d Szg - [id number] Implanted:Qty : 1 on 10/28/2022 by Chepe Winkler M.D. at [facility] Knee Implant Left: Knee [employer] 04/26/2032 [id number] 79-01 / / [id number] Kn Stm Prs Cmnt 14x30 - [id number] Implanted:Qty : 1 on 10/28/2022 by Chepe Winkler M.D. at [facility] Knee Implant Left: Knee [employer] 09/22/2032 [id number] 01-14 / / [id number] Kn Fem Prs Lt Cmnt Ps Sz-9 - [id number] Implanted:Qty : 1 on 10/28/2022 by Chepe Winkler M.D. at [facility] Knee Implant Left: Knee [employer] 11/12/2031 [id number] 66-01 / / [id number] Ins Tib Prs Vv Ps Lt 6 9 Gh 16 - [id number] Implanted:Qty : 1 on 10/28/2022 by Chepe Winkler M.D. at [facility] Knee Implant Left: Knee [employer] 09/26/2023 [id number] 09-16 / / [id number] Explanted Type Area Radio Script Writer Device Identifier Shelf Expiration Date Model / Serial / Lot Hardware E.G. Pins/Screws/Ro ds Explanted:Qty: 7 on 10/28/[address] [facility] Hardware e.g. pins/screws/ rods Left: Leg Description:6 screws and a t ibial willie Procedures Procedure Name Priority Date/Time Associated Diagnosis Comments BASIC METABOLIC PANEL, S/P Routine 2022 3:28 AM CDT HEMOGLOBIN A1C, B Routine 10/28/2022 9:2 6 AM CDT from Last 3 Months or Most Recently Relevant to Health Maintenance Results * (ABNORMAL) Hemoglobin A1c (10/28/2022 9:26 AM CDT) Hemoglobin A1c, B 6.2(H) 4.0 - 5.6 % 10/28/2022 11:47 AM CDT DTL Comment: Hemoglobin A1c values of 5.7-6.4 percent indicate an increased risk for developing diabetes mellitus. In diabetic patients, HbA1c goals should be discussed with healthcare provider. Blood (Blood, Venous) 10/28/2022 9:26 AM CDT 10/28/2022 9:44 AM CDT Juan Carlos Zheng M.D. LAB BLOOD ADD-ON [facility] [address] [place] [address], [place] [facility] [address] [place] [address] from Last 3 Months or Most Recently Relevant to Health Maintenance Advance Directives For more information, please contact: [phone] * Full Code (Latest Code Status on File) Date Activated Date Inactivated Comments 10/28/2022 8:21 PM 11/03/2022 3:34 PM Question Answer Comments Full Code: Not Discussed Due to: Patient not available Care Teams Port Crane Operator Relationship Specialty Start Date End Date Elsewhere, Pcp PCP - General Internal Medicine 09/08/22
--- OUTSIDE RECORDS SUMMARY | 2024-02-11 08:59 | XMS_ITS | Referral Summary ---
Author Organization [facility] Address [address] [place] [address] Care Team Providers Care Cnc Machine Programmer Name Role Phone Elsewhere, Pcp Primary Care Provider Unavailabl e Source Comments Patient records contain information from all sites at [facility]. For routine questions regarding patient records, call [phone] during business hours, M-F 8:00 AM - 5:00 PM Central Time. Record requests for emergency care only can be directed to [phone] at any time.[facility] Allergies Active Allergy Reactions Criticality Noted [...] tablet by mouth daily. noon 06/06/2022 Active soxrkxuq-wrqlci-uzo 1-D3-C-leticia 750-625-1,000 mg-mg-unit tablet Take 1 capsule [...] by mouth at bedtime. 08/12/2022 Active vitamins A,C,F-wynu-qsdjeh (PRESERVISION AREDS) 7,160 Units-113 mg-100 Units per [...] - 03/31/2014 Smokeless Tobacco: Former Chew Quit: 1959 Tobacco Cessation:Counseling Given: Not Answered Comments:smoked 2-3 [...] often do you attend chur ch or bahai services? More than 4 times per year 09/03/2022 Do you belong to any clubs o r organizations such as druze groups, unions, fraternal or athletic groups, or [...] medical care, and heating? Somewhat hard 09/03/2022 [facility] - Occupational Stress [...] place to sleep or slept in a long-term (including now)? 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 at [facility] Bone Cement Left: Knee Jessica 6191-100 1 / / Cmnt Bn Smp 40gm - [id number] Implanted:Qty : 1 on 10/28/2022 by Chepe Winkler M.D. at [facility] Bone Cement Left: Knee [place] 6191-100 1 / / Hip [facility] Cmnt 24 - [id number] - [id number] Implanted:Qty : 1 on 10/28/2022 by Chepe Winkler M.D. at [facility] Hardware e.g. pins/screws/ rods Left: Knee [place] [id number] 07/08/2027 [id number] / [id number] Bsplt Tib Prs Lt 5d Szg - [id number] Implanted:Qty : 1 on 10/28/2022 by Chepe Winkler M.D. at [facility] Knee Implant Left: Knee [employer] 04/26/2032 [id number] 79-01 / / [id number] Kn Stm Prs Cmnt 14x30 - [id number] Implanted:Qty : 1 on 10/28/2022 by Chepe Winkler M.D. at [facility] Knee Implant Left: Knee [employer] 09/22/2032 [id number] 01-14 / [id number] Kn Fem Prs Lt Cmnt Ps Sz-9 - [id number] Implanted:Qty : 1 on 10/28/2022 by Chepe Winkler M.D. at [facility] Knee Implant Left: Knee [employer] 11/12/2031 42-5006-0 66-01 / / [id number] Ins Tib Prs Vv Ps Lt 6 9 Gh 16 - [id number] Implanted:Qty : 1 on 10/28/2022 by Chepe Winkler M.D. at [facility] Knee Implant Left: Knee [employer] 09/26/2023 [id number] 09-16 / / [id number] Explanted Type Area Head Custodian Device Identifier Shelf Expiration Date Model / Serial / Lot Hardware E.G. Pins/Screws/Ro ds Explanted:Qty: 7 on 10/28/2022 at [facility] Hardware e.g. pins/screws/ rods Left: Leg Description:6 screws and a t ibial willie Procedures Procedure Name Priority Date/Time Associated Diagnosis Comments BASIC METABOLIC PANEL, S/P Routine 2022 3:28 AM CDT HEMOGLOBIN A1C, B Routine 10/28/2022 9:2 6 AM CDT from Last 3 Months or Most Recently Relevant to Health Maintenance Results * (ABNORMAL) Hemoglobin A1c (10/28/2022 9:26 AM CDT) Pathologist [facility] Hemoglobin A1c, B 6.2(H) 4.0 - 5.6 % 10/28/2022 11:47 AM CDT DTL Comment: Hemoglobin A1c values of 5.7-6.4 percent indicate an increased risk for developing diabetes mellitus. In diabetic patients, HbA1c goals should be discussed with healthcare provider. Blood (Blood, Venous) 10/28/2022 9:26 AM CDT 10/28/2022 9:44 AM CDT Juan Carlos Zheng M.D. LAB BLOOD ADD-ON [facility] [place] [address] [place] [address], [place] [facility] [address] [place] [address] from Last 3 Months or Most Recently Relevant to Health Maintenance Advance Directives For more information, please contact: [phone] * Full Code (Latest Code Status on File) Date Activated Date Inactivated Comments 10/28/2022 8:21 PM 11/03/2022 3:34 PM Question Answer Comments Full Code: Not Discussed Due to: Patient not available Care Teams Cnc Machine Programmer Relationship Specialty Start Date End Date Elsewhere, Pcp PCP - General Internal Medicine 09/08/22
--- OUTSIDE RECORDS SUMMARY | 2024-02-11 08:59 | XMS_ITS ---
Author Organization [facility] Address [address] [place] [address] Care Team Providers Care Parts Sales Representative Name Role Phone Unavailable Unavailable Unavailable Surgery Details Not on file Complications Check Surgery Details section. Procedure Estimated Blood Loss Check Surgery Details section. Procedure Findings Check Surgery Details section. Procedure Specimens Taken Check Surgery Details section.
--- OUTSIDE RECORDS SUMMARY | 2024-02-11 09:00 | XMS_ITS | Clinical Summary ---
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 Active CPAPIndications:Ob structive sleep apnea CPAP machine for home use 15 cmw, full face mask x1/3month with a full face cushion x1/mo 1 Each 11/18/19 23 Active amoxicillin (AMOXIL) 500 mg capsule 01/22/20 23 Active polyethylene glycoL (MIRALAX) 17 gram/scoop powderIndications: Chronic constipation Mix 0.5 scoops (8.5 g) in liquid then take by mouth once daily. 235 g 01/27/20 23 Active blood-glucose meterIndications:D izziness,Type 2 diabetes mellitus without complication, without long-term current use of insulin (HC) by abdominal subcutaneous route. 1 Kit 01/27/20 Active lancetsIndications :Dizziness,Type 2 diabetes mellitus without complication, without long-term current use of insulin (HC) As directed. Test 1 times per day. 100 Each 3 01/31/20 23 Active glucosamine/chondr flores A sod (OSTEO BI-FLEX ORAL) Take 1 Tablet by mouth once daily. Active meclizine (ANTIVERT) 25 mg tabletIndications: Dizziness [...] MEAL 90 Capsule 3 09/06/19 24 Active Ecfxy-8-AMD-EPA-Fi sh Oil (Fish OiL) 1,000 mg (120 mg-180 mg) cap Take by mouth. Active albuterol HFA (PRO-AIR; VENTOLIN; PROVENTIL) 90 mcg/actuation inhalerIndications :Chronic obstructive pulmonary disease, unspecified COPD type (HC) Inhale 1-2 Puffs by mouth every 4 hours if needed for Shortness Of Breath. 1 Each 10/04/19 24 Active venlafaxine (EFFEXOR XR) 75 mg cp24 Extended-Release capsuleIndications :Anxiety TAKE 1 CAPSULE BY MOUTH EVERY DAY WITH A MEAL 90 Capsule 1 10/21/19 24 Active oxybutynin XL (DITROPAN XL) 10 [...] ONCE WEEKLY 6 mL 11/29/19 24 Active gabapentin (NEURONTIN) 100 mg capsuleIndications :Peripheral sensory neuropathy Take 3 Capsules (300 mg) by mouth two times daily. 180 Capsule 3 12/17/19 24 Active clindamycin (CLEOCIN) 300 mg capsule 12/09/19 24 Active Calcium Citrate 250 mg calcium tabletIndications: Nutritional deficiency TAKE 1 TABLET BY MOUTH TWO TIMES DAILY WITH MEALS 180 Tablet 2 01/03/20 24 Active metoprolol succinate (TOPROL XL) 25 mg Sustained-Release tabletIndications: Palpitations TAKE ONE TABLET BY MOUTH EVERY DAY 90 Tablet 01/11/20 24 Active Stool Softener-Stimulant Laxat 8.6-50 mg tabletIndications: Constipation, acute TAKE 1 TABLET BY MOUTH ONCE DAILY NEEDED FOR CONSTIPATION 90 Tablet 3 01/11/20 24 Active enoxaparin (Lovenox) 120 mg/0.8 mL injectionIndicatio ns:Pulmonary embolism, bilateral (HC),Paroxysmal atrial fibrillation (HC),Anticoagulati on monitoring, INR range 2-3,Acute embolism and thrombosis of deep vein of left lower extremity (HC) Inject 120 mg subcutaneous every 12 hours for 20 doses. 8 mL 1 02/08/20 24 024 Active Allergy Relief, cetirizine, 10 mg tabletIndications: Seasonal allergies TAKE ONE TABLET BY MOUTH EVERY DAY 90 Tablet 3 01/24/20 24 Active magnesium citrate (CITRATE OF MAG) solution Take 120 mL by mouth once daily if needed for Constipation. 01/25/20 24 Active vit-mineral eye [id number] g-lut-zeax (PreserVision AREDS-2) capsule Take 1 Capsule by mouth two times daily. 01/25/20 24 Active warfarin (COUMADIN) 5 mg tabletIndications: Pulmonary embolism, bilateral (HC),Paroxysmal atrial fibrillation (HC),Anticoagulati on monitoring, INR range 2-3,Acute embolism and thrombosis of deep vein of left lower extremity (HC) Take by mouth 02/05: Hold; 02/06: Hold; 02/07: Hold; 02/08: Hold; 02/09: Hold; Otherwise 2.5 mg every Wed, Nat; 5 mg all other days in the evening OR as directed 01/29/20 24 Active LORazepam (ATIVAN) 1 mg tabletIndications: Anxiety and depression TAKE ONE-HALF TABLET BY MOUTH EVERY MORNING AND TAKE ONE TABLET BY MOUTH EVERY DAY AT NOON 50 Tablet 01/31/20 24 Active mometasone-formote rol (Dulera) 100-5 mcg/actuation inhalerIndications :Chronic obstructive pulmonary disease, unspecified COPD type (HC) INHALE 2 PUFFS BY MOUTH 2 TIMES A DAY 39 g 02/09/20 24 Active polyethylene glycol-electrolyte (GOLYTELY) 236-22.74-6.74 -5.86 gram suspensionIndicati ons:Encounter for screening colonoscopy Drink 2 liters (half the bottle) the day before colonoscopy and 2 liters (remaining prep) 6 hours prior to colonoscopy appointment. 4000 mL 02/08/20 24 Active cetirizine (ZYRTEC) 10 mg tabletIndications: Seasonal allergies Take 1 Tablet (10 mg) by mouth once daily. 90 Tablet 3 02/06/20 23 024 Discontinued mometasone-formote rol (DULERA) 100-5 mcg/actuation inhalerIndications :Chronic obstructive pulmonary disease, unspecified COPD type (HC) Inhale 2 Puffs by mouth two times daily. 13 g 3 10/01/19 24 024 Discontinued LORazepam (ATIVAN) 1 mg tabletIndications: Anxiety and depression TAKE ONE-HALF TABLET BY MOUTH EVERY MORNING AND TAKE ONE TABLET BY MOUTH EVERY DAY AT NOON 50 Tablet 12/17/19 24 024 Discontinued(Ot her - add note to specify (E-cancel not sent)) cefadroxil (DURICEF) 1 gram tabletIndications: Complicated UTI (urinary tract infection) Take 1 g by mouth two times daily for 7 days. 14 Tablet 01/10/20 24 024 warfarin (COUMADIN) 5 mg tabletIndications: Pulmonary embolism, bilateral (HC),Paroxysmal atrial fibrillation (HC),Anticoagulati on monitoring, INR range 2-3,Acute embolism and thrombosis of deep vein of left lower extremity (HC) Take by mouth 02/05: Hold; 02/06: Hold; 02/07: Hold; 02/08: Hold; 02/09: Hold; Otherwise 2.5 mg every Wed, Nat; 5 mg all other days in the evening OR as directed 01/10/20 24 024 Discontinued warfarin (COUMADIN) 5 mg tabletIndications: Pulmonary embolism, bilateral (HC),Paroxysmal atrial fibrillation (HC),Anticoagulati on monitoring, INR range 2-3,Acute embolism and thrombosis of deep vein of left lower extremity (HC) TAKE ONE TABLET BY MOUTH EVERY MON, WED, FRI AND ONE-HALF TABLET BY MOUTH ALL OTHER DAYS IN THE EVENING OR DIRECTED 64 Tablet 01/24/20 24 024 Discontinued(Ot her - add note to specify (E-cancel not sent)) Active Problems Problem Noted Date Diagnosed Date Controlled type 2 diabetes m bakari with complication, without long-term current use of insulin 07/12/2023 Osteoarthritis of knee 10/19/2022 3 Humeral head fracture 10/27/2021 Anemia 10/27/2021 Osteoarthritis [...] 01/03/2014 Post concussion syndrome 01/03/2014 Vertigo 01/03/2014 Overview: Treated with therapy and twice daily benzo Gait instability 01/03/2014 Mixed hyperlipidemia 09/29/2013 Umbilical [...] Encounters Date Type Department Care Team Description 02/07/2024 Telephone [facility] [place] [address] Turner Lora MD Procedure (Colonoscopy ) 02/07/[address] [address] Beni Wise DO Refill Request (Dulera) 01/31/[address] [address] Beni Wise DO Error-please disregard (error) 01/31/[address] [address] Beni Wise DO Refill Request (Ativan) 01/29/[address] [address] Beni Wise DO Refill Request (Lorazepam) 01/29/2024 Anticoagulation (warfarin) [address] [address] 1, [facility] Anticoagulation 01/28/2024 1:30 PM CDT Orders Only [address] [address] Lab[facility] [place] 01/27/2024 9:30 AM CDT Ancillary Procedure [address] [address] 01/27/2024 Travel 01/25/2024 9:45 AM CDT Preop Visit [address] [address] Beni Wise DO Preoperative Exam (Dr. Lora - colonoscopy and [facility] - 02/11/2024) 01/25/[address] [address] Beni Wise DO Anticoagulation (02/11/24 procedure hold/bridge instructions) 01/25/2024 Travel 01/22/2024 Refill [facility] [address] [place] [address] Beni Wise DO Refill Request (Warfarin, Allergy Relief (Cetirizine)) 01/18/2024 Telephone [facility] [address] [place] [address] Beni Wise DO Anticoagulation 01/10/2024 9:20 AM CDT Office Visit [address] [address] Beni Wise DO Urinary Problem (Sometimes notes pain with urination ) 01/10/2024 Anticoagulation (warfarin) [facility] [address] [place] [address] 1, [facility] Anticoagulation 01/10/[address] [address] Beni Wise DO Refill Request (Cefadroxil 1gm) 01/10/[address] [address] Beni Wise DO Follow Up 01/10/2024 Travel 01/10/[address] [address] Beni Wise DO Refill Request (Metoprolol Succinate, Stool Softener-stimulant Laxat) 01/06/2024 10:15 AM CDT Office Visit [facility] [address] [place] [address] Davin Barreto, DPM [facility]; Dr. Wise) 01/06/2024 Anticoagulation (warfarin) [facility] [address] [place] [address] 1, [facility] Anticoagulation (Hold/Bridge orders) 01/05/2024 9:40 AM CDT Office Visit [facility] [place] [facility] [address] [place] [address] Melvin Sneed MD Consult (Dizziness, pressure in head Ref: Dr. Beni Wise /MR Lumbar 11/01/23 /CT Head/Brain 01/25/23, 12/08/21, 10/15/11 /CT Head/Brain @ [facility] 12/31/22, 05/06/16, 11/02/12, 08/02/12 /MR Head/Brain 02/03/16, 11/29/14, 02/27/10 /CT Head/Brain/Sinus 09/21/12 /CT Head @ [facility] 11/06/10, 09/02/10, 06/29/10, 05/31/10 /MRA Head/Brain/Neck 02/27/10 /MR Lumbar 12/20/14 /MR Lumbar @ [facility] 03/12/22 ) 01/05/2024 Travel 01/04/2024 11:00 AM CDT Office Visit [facility] at [facility] [address] [place] [address] Jacob Mcrae MD Procedure (L4-5 ILESI) 01/03/[address] [address] Beni Wise DO Medication Management 01/02/2024 Refill [facility] [address] [place] [address] Beni Wise DO Refill Request (Calcium Citrate) 12/31/[address] [address] Beni Wise DO Anticoagulation (Hold orders- 02/11/24 Colonoscopy) 12/31/2023 Anticoagulation (warfarin) [facility] [address] [place] [address] , [facility] Anticoagulation (Chart update) 12/31/2023 Telephone [facility] [address] [place] [address] Beni Wise DO Anticoagulation (Upcoming procedures) 12/18/2023 Anticoagulation (warfarin) [address] [place] [address] 1, [facility] Anticoagulation (Provider Visit) 12/17/2023 12:30 PM CDT Ancillary Procedure [address] [place] [address] 12/17/2023 11:25 AM CDT Office Visit [address] [place] [address] Beni Wise DO Hospital F/U (post hospital follow up); Results (discuss chest xrays and discuss ER visit); Refill Request (Lorazepam and Gabapentin); Urinary Problem (burning pain periodically with urination, not consistent x 3 months); Toe Pain/problem (Great toe right foot-red sometimes turns black) 12/17/2023 Travel 12/10/[address] [address] Jacob Mcrae MD BLOOD THINNERS / ASHVIN 12/09/2023 Orders Only [facility] Scanner 1 scan: (1-Ord) [facility], XR CHEST 1V PORTABLE, 12/09/2023 11/30/2023 11:00 AM CDT Orders Only [address] [place] [address] Lab[facility] 11/30/[address] [address] Beni Wise DO Anticoagulation (12/14/2023- Lumbar steroid injection) 11/30/2023 Anticoagulation (warfarin) [address] [address] 1, [facility] Anticoagulation 11/30/2023 Travel 11/28/[address] [address] Beni Wise DO Refill Request (Ozempic) 11/24/[address] [address] Beni Wise DO Anticoagulation (Hold Orders) 11/24/2023 Telephone [facility] [address] [place] [address] Beni Wise DO Dental Problem 11/18/2023 Telephone [facility] [address] [place] [address] Turner Lora MD Endoscopy; Screening; Anticoagulation 11/17/[address] [address] Jacob Mcrae MD Results 11/15/2023 1:15 PM CDT Orders Only [address] [address] Lab[facility] 11/15/2023 11:45 AM CDT Ancillary Procedure [address] [address] 11/15/2023 Anticoagulation (warfarin) [address] [address] 1, [facility] Anticoagulation 11/15/2023 Travel 11/12/[address] [address] Beni Wise DO Refill Request (Lorazepam) from Last 3 Months Immunizations Name Administration Dates Next Due AMB Influenza, IIV3 (Age >=3 years)(Flu Clinic Only) 04/23/2010 COVID-19 Vaccine Spikevax (M oderna 50mcg/0.5mL) 12YO+ [id number] Formula PF 07/12/2023 COVID-19 vaccine (Moderna 100mcg/0.5mL) [...] disease Maternal Grandmother Heart Disease Maternal Grandmother [place] Heart Disease Mother coumadin Hypertension Mother Osteoporosis Mother Cancer-colon Neg. 1 Cancer-prostate Neg. 2 Stroke Paternal Grandfather Cancer Paternal Grandmother Anesthesia Problem No Family History Relation Name Status Comments Brother 1 Brother 2 Brother 3 Father (Age 59) stomach Maternal Grandfather (Age 90) [place] Maternal Grandmother (Age 91) ol d age Mother (Age 92) old age Neg. 1 Neg. [address]aternal Grandfather (Age 81) [place] Paternal Grandmother (Age 67) ca ncer Social [...] Communication with Friends and Fami ly 0 01/10/2024 Financial Resource Strain Answer Date R ecorded Difficulty of Paying Living Expenses 3 01/10/2024 Difficulty of Paying Living Expenses Not on file 01/10/2024 Food Insecurity Answer Date Recorded Worried About Running Out of Food in the Last Ye ar 1 01/10/2024 Transportation Needs Answer Date Record ed Lack of Transportation (Medical) 1 01/10/2024 Housing Stability Answer Date Recorded Unable to Pay for Housing in the Last Year 1 01/10/2024 Sex and Gender Information Value Date Recorded Sex Assigned at Not on file Gender Identity Male 11/17/2023 4:46 PM CDT Sexual Orientation Straight 11/17/2023 4: 46 PM CDT Obstetrics History Last Filed Vital Signs Vital Sign Reading Time Taken Comments Blood Pressure 118/75 01/25/2024 9:49 AM CDT Pulse 75 01/25/2024 9:49 AM CDT Temperature 36.3 ??C (97.4 ??F) 10/18/2023 1 0:55 AM CDT Respiratory Rate 20 10/06/2023 1:05 PM CDT Oxygen Saturation 95% 01/25/2024 9:49 AM CDT Inhaled Oxygen Concentration - - Weight 130.6 kg (287 lb 14.4 oz) 01/25/2024 9:49 AM CDT Height 172.7 cm (5' 8) 10/06/2023 1:05 PM CDT Body Mass Index 43.78 10/06/2023 1:05 PM CDT Plan of Treatment Upcoming Encounters Date Type Department Care Team (Late st Contact Info) Description 02/11/2024 9:15 AM CDT Office Visit [facility] [address] [place] [address] Turner Lora MD [address] [place] [address] Arrived 02/14/2024 10:30 AM CDT Orders Only [facility] [address] [place] [address] [facility] [place] 04/18/2024 11:10 AM CDT Telemedicine [facility] [address] [place] [address] Susan Law NP [address] [place] [address] 04/21/2024 1:00 PM CDT Office Visit [facility] [place] [facility] [address] [place] [phone] Leland Luna MD [address] [facility] [address] [place] [address] Health Maintenance Due Date Last Done Comments [...] Additional history exists Tetanus booster 01/03/2029 01/03/2019, 06/07/2009, 07/02/1999 Pneumococcal series for age 65+ Completed 05/17/2014, 02/04/2012, 02/24/2005 Hepatitis C screening for ag e 18-79 Completed 12/12/2014 Zoster (shingles) series for age 50+ Completed 01/28/2018, 10/14/2017, 08/26/2007 Tdap Completed 01/03/2019, 11/27/2009 Procedures Procedure Name Priority Date/Time Associated Diagnosis Comments ESOPHAGOGASTRODUODENOSCOPY Routine 02/10 7:58 AM CDT Adenomatous duodenal polyp COLONOSCOPY SCREENING Routine 02/11/2024 7:58 AM CDT Multiple adenomatous polyps PLATELET COUNT STAT 01/28/2024 1:22 PM CDT Pulmonary embolism, bilateral (HC) Paroxysmal atrial fibrillation (HC) Anticoagulation monitoring, INR range 2-3 Acute embolism and thrombosis of deep vein of left lower extremity (HC) PROTIME-INR STAT 01/28/2024 1:22 PM CDT Pulmonary embolism, bilateral (HC) Paroxysmal atrial fibrillation (HC) Anticoagulation monitoring, INR range 2-3 MR HEAD BRAIN WO Routine 01/27/2024 9:39 AM CDT Dizziness TSH WITH REFLEX Routine 01/10/2024 11:01 AM CDT Fatigue, unspecified type CBC W PLT NO DIFF STAT 01/10/2024 11:01 AM CDT Pulmonary embolism, bilateral (HC) Anticoagulation monitoring, INR range 2-3 CREATININE STAT 01/10/2024 11:01 AM CDT Pulmonary embolism, bilateral (HC) Anticoagulation monitoring, INR range 2-3 PROTIME-INR STAT 01/10/2024 11:01 AM CDT Pulmonary embolism, bilateral (HC) Paroxysmal atrial fibrillation (HC) Anticoagulation monitoring, INR range 2-3 URINALYSIS MICROSCOPIC Routine 10:35 AM CDT Dysuria UA W/ SEDIMENT EXAM REFLEXED PER CRITERIA Routine 01/10/2024 10:35 AM CDT Dysuria NM СЕРГЕЙ POST-VOIDING RESIDUA L URINE&/BLADDER CAP Routine 01/10/2024 12:00 AM CDT Dysuria AMB EPIDURAL STEROID INJECTION Routine 0 01/04/2024 12:00 AM CDT DDD (degenerative disc disease), lumbar Facet arthropathy Lumbar radiculopathy XR CHEST 2 VIEWS PA AND LATERAL MERYL 12/17/2023 12:49 PM CDT Fatigue, unspecified type Low O2 saturation URINE CULTURE Add On 12/17/2023 12:40 PM CDT Dysuria URINALYSIS MICROSCOPIC Routine 12:40 PM CDT Dysuria UA W/ SEDIMENT EXAM REFLEXED PER CRITERIA Routine 12/17/2023 12:40 PM CDT Dysuria URINE ALBUMIN TO CREATININE RATIO, RANDOM Routine 12/17/2023 12:40 PM CDT Type 2 diabetes mellitus without complication, without long-term current use of insulin (HC) WHITE BLOOD COUNT Routine 12/17/2023 12:19 PM CDT Fatigue, unspecified type PROTIME-INR STAT [...] 2-3 MR SPINE LUMBAR WO Routine 11/15/2023 12:29 PM CDT Facet arthropathy - L3-4 & L4-5 DDD (degenerative disc disease), lumbar Lumbar radiculopathy CT CHEST SCREENING LOW DOSE WO CONTRAST Routine 05/06/2023 4:15 PM 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 Encounter for screening for lung cancer Personal history of nicotine dependence ANTI HCV Routine 12/12/2014 8:52 AM CDT Unspecified hereditary and idiopathic peripheral neuropathy Abnormality of gait Dizziness and giddiness from Last 3 Months or Most Recently Relevant to Health Maintenance Results * PLATELET COUNT (01/28/2024 1:22 PM CDT) PLATELET COUNT 188 140 - 440 thou/cu mm 01/28/2024 1:26 PM CDT [facility] MPV 9.4 6.5 - 11.0 fL 01/28/2024 1:26 PM CDT [facility] Blood BLOOD SPECIMEN / Unknown Venipuncture / Unknown 01/28/2024 1:22 PM CDT 01/28/2024 1:23 PM CDT Narrative [facility] - 01/28/2024 1:26 PM CDT MD to monitor if out of range, to monitor for Heparin-Induced Thrombocytopenia while on lovenox. Beni Wise DO HEMATOLOGY [facility] [address] [place] [address], * (ABNORMAL) PROTIME-INR (01/28/2024 1:22 PM CDT) Only the most recent of3 resultswithin the time period is included. INR 2.8(H) <1.3 01/28/2024 9:48 PM CDT [facility] PROTIME 30.2(H) 10.3 - 12.3 sec 01/28/2024 9:48 PM CDT [facility] Blood BLOOD SPECIMEN / Unknown Venipuncture / Unknown 01/28/2024 1:22 PM CDT 01/28/2024 1:23 PM CDT Narrative [facility] - 01/28/2024 9:48 PM CDT ?Therapeutic Range 2.0-3.0 for most [...] if the patient is on UFH. Beni Wise DO HEMATOLOGY [facility] [address] [place] [address], * MR BRAIN WO CONTRAST (01/27/2024 9:39 AM CDT) Anatomical Region Laterality Modality BRAIN, HEAD Magnetic Resonan ce 01/27/2024 10:3 0 AM CDT Impressions 01/27/2024 10:30 AM CDT 1. No acute infarction or other acute intracranial pathology. 2. Mild chronic microvascular ischemic changes. 3. Moderate generalized parenchymal volume loss. Dictated by Tin Cintron MD @ 01/27/2024 10:30:52 AM (Electronically Signed) Narrative 01/27/2024 10:30 AM CDT For Patients: ??As a result of the Cures Act, medical imaging exams and procedure reports are released immediately into your electronic medical record. ??You may view this report before your referring provider. ??If you have questions, please contact your health care provider. INDICATION: Dizziness. TECHNIQUE: Brain MRI without contrast. COMPARISON: Head CT from 01/25/2023. Brain MRI from 02/03/2016. FINDINGS: No evidence of acute ischemia. No evidence of acute or chronic intracranial blood products. Scattered FLAIR hyperintensities within the supratentorial white matter and brainstem, typical for chronic microvascular ischemic change. Moderate generalized parenchymal volume loss. No mass effect or herniation. No hydrocephalus or extra-axial collections. The pituitary gland, parasellar structures and optic chiasm are normal. Posterior fossa is normal. All the major intracranial vascular structures demonstrate normal flow-related signal. The orbital contents are normal. No marrow replacing process. Bilateral calvarial vinh hole craniotomy sites. No obstructive sinus disease. No extracranial soft tissue findings. Procedure Note Tin Cintron MD - 01/27/2024 For Patients: As a result of the Cures Act, medical imagingexams and procedure reports are released immediately into your electronicmedical record. You may view this report before your referring provider.If you have questions, please contact your health care provider. INDICATION: Dizziness. TECHNIQUE: Brain MRI without contrast. COMPARISON: Head CT from 01/25/2023. Brain MRI from 02/03/2016. FINDINGS: No evidence of acute ischemia. No evidence of acute or chronicintracranial blood products. Scattered FLAIR hyperintensities within thesupratentorial white matter and brainstem, typical for chronicmicrovascular ischemic change. Moderate generalized parenchymal volumeloss. No mass effect or herniation. No hydrocephalus or extra-axialcollections. The pituitary gland, parasellar structures and optic chiasmare normal. Posterior fossa is normal. All the major intracranial vascularstructures demonstrate normal flow-related signal. The orbital contents are normal. No marrow replacing process. Bilateralcalvarial vinh hole craniotomy sites. No obstructive sinus disease. Noextracranial soft tissue findings. IMPRESSION: 1. No acute infarction or other acute intracranial pathology. 2. Mild chronic microvascular ischemic changes. 3. Moderate generalized parenchymal volume loss. Dictated by Tin Cintron MD @ 01/27/2024 10:30:52 AM (Electronically Signed) Melvin Sneed MD MR * TSH WITH REFLEX (01/10/2024 11:01 AM CDT) TSH 2.09 0.27 - 4.20 uIU/mL 01/10/2024 5:48 PM CDT [facility] [employer] [facility] Blood BLOOD SPECIMEN / Unknown Venipuncture / Unknown 01/10/2024 11:01 AM CDT 01/10/2024 11:01 AM CDT Narrative [facility] - 01/10/2024 5:48 PM CDT In Adults, TSH values between 5.00 and 10.00 uIU/ml do not necessarily indicate the presence of Hypothyroidism. Correlation with clinical findings such as presence of goiter and/or Thyroperoxidase (TPO) Antibody may be helpful. For more information please refer to KURT 2004; 291: 228-238. Beni Wise DO CHEMISTRY [facility] [address] [place] [address], [place] * (ABNORMAL) CBC W PLT NO DIFF (01/10/2024 11:01 AM CDT) WHITE BLOOD COUNT 7.5 4.5 - 11.0 thou/cu mm 01/10/2024 11:08 AM CDT [facility] RED BLOOD COUNT 3.92(L) 4.30 - 5.90 mil/cu mm 01/10/2024 11:08 AM CDT [facility] HEMOGLOBIN 12.7(L) 13.5 - 17.5 g/dL 01/10/2024 11:08 AM CDT [facility] HEMATOCRIT 38.1 37.0 - 53.0 % 01/10/2024 11:08 AM CDT [facility] MCV 97 80 - 100 fL 01/10/2024 11:08 AM CDT [facility] MCH 32.4 26.0 - 34.0 pg 01/10/2024 11:08 AM CDT [facility] MCHC 33.3 32.0 - 36.0 g/dL 01/10/2024 11:08 AM CDT [facility] RDW 14.6 11.5 - 15.5 % 01/10/2024 11:08 AM CDT [facility] PLATELET COUNT 195 140 - 440 thou/cu mm 01/10/2024 11:08 AM CDT [facility] MPV 10.2 6.5 - 11.0 fL 01/10/2024 11:08 AM CDT [facility] Blood BLOOD SPECIMEN / Unknown Venipuncture / Unknown 01/10/2024 11:01 AM CDT 01/10/2024 11:01 AM CDT Beni Jose Alejandrohumberto CHONG HEMATOLOGY [facility] [address] [place] [address], * (ABNORMAL) CREATININE (01/10/2024 11:01 AM CDT) eGFR 74(L) >90 mL/min/1.7 3m2 01/10/2024 5:48 PM CDT [facility] Comment:As of 2021, eG FR is calculated by the CKD-EPI creatinine equation without race adjustment. ??eGFR can be influenced by muscle mass, exercise, and diet. ??The reported eGFR is an estimation only and is only applicable if the renal function is stable. CREATININE 1.04 0.70 - 1.20 mg/dL 01/10/2024 5:48 PM CDT [facility] Blood BLOOD SPECIMEN / Unknown Venipuncture / Unknown 01/10/2024 11:01 AM CDT 01/10/2024 11:01 AM CDT Beni Jose Alejandrohumberto CHONG CHEMISTRY [facility] [address] [place] [address], * (ABNORMAL) URINALYSIS MICROSCOPIC (01/10/2024 10:35 AM CDT) Only the most recent of2 resultswithin the time period is included. RBC 0-2 0-2, None Seen /HPF 01/10/2024 11:18 AM CDT [facility] WBC 26-50(A) 0-2, 3-5, None Seen /HPF 01/10/2024 11:18 AM CDT [facility] BACTERIA Moderate(A ) None Seen, Rare, Few Bacteria/ HPF 01/10/2024 11:18 AM CDT [facility] EPITHELIAL CELLS Few None Seen, Few Epi/HPF 01/10/2024 11:18 AM CDT [facility] Urine URINE SPECIMEN / Unknown Non-Blood / Unknown 01/10/2024 10:35 AM CDT 01/10/2024 11:04 AM CDT Beni Wise DO URINE [facility] [address] [place] [address], [place] [phone] * (ABNORMAL) UA W/ SEDIMENT EXAM REFLEXED PER CRITERIA (01/10/2024 10:35 AM CDT) Only the most recent of2 resultswithin the time period is included. COLOR Yellow Yellow Color 01/10/2024 11:18 AM CDT [facility] CLARITY Slightly Cloudy(A) Clear Clarity 01/10/2024 11:18 AM CDT [facility] SPECIFIC GRAVITY,URINE 1.020 1.010, 1.015, 1.020, 1.025 01/10/2024 11:18 AM CDT [facility] PH,URINE 6.0 6.0, 7.0, 8.0, 5.5, 6.5, 7.5, 8.5 01/10/2024 11:18 AM CDT [facility] UROBILINOGEN, QUALITATIVE Normal Normal EU/dl 01/10/2024 11:18 AM CDT [facility] PROTEIN, URINE Negative Negative mg/dL 01/10/2024 11:18 AM CDT [facility] GLUCOSE, URINE Negative Negative mg/dL 01/10/2024 11:18 AM CDT [facility] KETONES,URINE Trace(A) Negative mg/dL 01/10/2024 11:18 AM CDT [facility] BILIRUBIN,URI NE Negative Negative 01/10/2024 11:18 AM CDT [facility] OCCULT BLOOD,URINE Negative Negative 01/10/2024 11:18 AM CDT [facility] NITRITE Negative Negative 01/10/2024 11:18 AM CDT [facility] LEUKOCYTE ESTERASE Small(A) Negative 01/10/2024 11:18 AM CDT [facility] Urine URINE SPECIMEN / Unknown Non-Blood / Unknown 01/10/2024 10:35 AM CDT 01/10/2024 11:04 AM CDT Beni Blountludwin DO URINE [facility] [address] [place] [address], [place] [phone] * NM СЕРГЕЙ POST-VOIDING RESIDUAL URINE&/BLADDER CAP (01/10/2024 12:00 AM CDT) Beni Wise DO PB - URINARY SYSTEM SERVICES * AMB EPIDURAL STEROID INJECTION (01/04/2024 12:00 AM CDT) Jacob Mcrae MD NEUROLOGY ORD * XR CHEST 2 VIEWS PA AND [...] MD @ 12/17/2023 2:48:49 PM (Electronically Signed) Beni Wise DO GENERAL IMAGING * URINE CULTURE (12/17/2023 12:40 PM CDT) CULTURE No growth (<1,000 CFU/mL) 12/18/2023 6:11 PM CDT [facility] Urine URINE SPECIMEN / Unknown Non-Blood / Unknown 12/17/2023 12:40 PM CDT 12/17/2023 12:41 PM CDT Beni Wise DO MICROBIOLOGY [facility] [address] [place] [id number] * URINE ALBUMIN TO CREATININE RATIO, RANDOM (12/17/2023 12:40 PM CDT) ALB RAND URINE 36.9 mg/L 12/17/2023 10:32 PM CDT [facility] CREATININE,URIN E 1.86 g/L 12/17/2023 10:32 PM CDT [facility] ALBUMIN TO CREATININE RATIO,RAND UR 19.8 <30.0 mg/g creat 12/17/2023 10:32 PM CDT [facility] Urine URINE SPECIMEN / Unknown Non-Blood / Unknown 12/17/2023 12:40 PM CDT 12/17/2023 12:41 PM CDT Narrative [facility] - 12/17/2023 10:32 PM CDT If Albumin to Creatinine Ratio is elevated, consider the following: ? Elevations seen with incipient nephropathy associated ?? with diabetes mellitus or hypertension. Stress, exercise,hematuria, ?? and urinary tract infection may also produce elevated results. If clinically indicated, confirm with ?24 Hour Albumin to Creatinine Ratio. ?? Adei Jose Alejandroqra DO URINE [facility] [address] [place] [address], [place] * WHITE BLOOD COUNT (12/17/2023 12:19 PM CDT) WHITE BLOOD COUNT 5.5 4.5 - 11.0 thou/cu mm 12/17/2023 12:27 PM CDT [facility] Blood BLOOD SPECIMEN / Unknown Venipuncture / Unknown 12/17/2023 12:19 PM CDT 12/17/2023 12:20 PM CDT Adei Jose Alejandroqra DO HEMATOLOGY Performing Organization Address [facility] Co de Phone Number [facility] [address] [place] [address], [place] [phone] * SCAN-RADIOLOGY REPORT (12/09/2023 12:00 AM CDT) Anatomical Region Laterality Modality Other Scanner OTHER * (ABNORMAL) INR,POCT (11/30/2023 11:13 AM CDT) Only the most recent of2 resultswithin the time period is included. INR 2.6(H) <1.3 11/30/2023 11:16 AM CDT [facility] Blood BLOOD SPECIMEN / Unknown 11/30/2023 11:13 AM CDT 11/30/2023 11:16 AM CDT Narrative [facility] - 11/30/2023 11:16 AM CDT ?Therapeutic Range 2.0-3.0 for most anticoagulated patients 2.5-3.5 or 4.0 for high risk patients Adei Jose Alejandroqra DO LABORATORY Performing Organization Address City/[facility]/ZIP Co de Phone Number [facility] [address] [place] [address], [place] [phone] * MR SPINE LUMBAR WO (11/15/2023 12:29 [...] spinal canal narrowing. Mild neural foraminal narrowing. Xwon-qw-ytiuaalt facet arthropathy. L5-S1: ??Disc degeneration. No spinal canal or neural foraminal narrowing. Moderate facet arthropathy. Mild sacroiliac joint osteoarthritis. Impression: 1. Stable chronic superior endplate compression deformities of T12 and L1. 2. At L3-4 and L4-5, mild neural foraminal narrowing. 3. Vlwe-bd-projseoi multilevel facet arthropathy. Dictated by Dmitriy Gil MD @ 11/15/2023 4:06:38 PM (Electronically Signed) Procedure Note Dmitriy Gil DO - 11/15/2023 For Patients: As a result of the 21st Century Cures Act, medical imagingexams and procedure reports [...] No spinal canal narrowing. Mild neural foraminalnarrowing. Vjui-jm-izatrprn facet arthropathy. L5-S1: Disc degeneration. No spinal canal or neural foraminal narrowing.Moderate facet arthropathy. Mild sacroiliac joint osteoarthritis. Impression: 1. Stable chronic superior endplate compression deformities of T12 andL1. 2. At L3-4 and L4-5, mild neural foraminal narrowing. 3. Bulb-yq-jvxvacxp multilevel facet arthropathy. Dictated by Dmitriy Gil MD @ 11/15/2023 4:06:38 PM (Electronically Signed) Jacob Mcrae MD MR * CT CHEST SCREENING LOW DOSE WO CONTRAST [[id number]] (05/06/2023 4:15 PM 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) Anatomical Region Laterality Modality Computed Tomogra phy Impressions 05/07/2023 11:16 AM 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 1. Densities adjacent to the right and [...] @05/07/2023 7:05:12 AM/CRL:ayan Narrative 05/07/2023 11:16 AM 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 For Patients: As a result of the [...] T7, T12 and L1. Upper abdomen: Unremarkable. Beni Wise DO CT * ANTI HCV (12/12/2014 8:52 AM CDT) HEPATITIS C ANTIBODY Non-Reacti ve Non-Reacti ve 12/12/2014 2:47 PM CDT [facility] Blood specimen (specimen) BLOOD SPECIMEN / Unknown Venipuncture / Unknown 12/12/2014 8:52 AM CDT 12/12/2014 9:01 AM CDT Narrative [facility] - 12/12/2014 2:47 PM CDT Antibodies to HCV not detected; does not exclude the possibility of exposure to HCV. Carter Cedeno MD SEND OUTS [facility] [address] [place] [address], from Last 3 Months or Most Recently Relevant to Health Maintenance Advance Directives Documents on File Type Date Recorded Patient Obstetrics Gynecology Md Expl anation POLST 11/10/2022 12:41 PM Full code * Full Code (Latest Code Status on File) Date Activated Date Inactivated Comments 02/22/2017 9:28 AM 02/23/2017 12:56 PM Care Teams Painting Worker Relationship Specialty Start Date End Date Beni Wise DO [facility] [place] [address] PCP - General Family Practice 11/05/21 Victor M Guevara PA [address] [place] [address] Consulting Physician Physician Zinc Chloride Operator 05/13/[address] [facility] [place] [address] Registered Dietitian Fiscal Specialist 05/13/22
--- NOTE | 2024-02-11 10:58 | W.ANESCHARGE ---
Anesthesia Charges Start Date/Time Anesthesia Start Date: 02/11/24 Anesthesia Start Time: 10:02 Stop Date/Time Anesthesia Stop Date: 02/11/24 Anesthesia Stop Time: 10:56
--- NOTE | 2024-02-11 11:15 | W.ANESCHARGE ---
Anesthesia Charges Start Date/Time Anesthesia Start Date: 02/11/24 Anesthesia Start Time: 10:02 Stop Date/Time Anesthesia Stop Date: 02/11/24 Anesthesia Stop Time: 10:56 Summary Extremes of Age - Over 70 or under 1: MDA
== END 2024-02-11 08:56 | disposition home or self-care (01) ==
LOC: OP CLINIC 08:57
PROVIDERS: PCP Student in an Organized Health Care Education/Training Program; Visit Provider Internal Medicine Gastroenterology
DX: K31.7 Polyp of stomach and duodenum (principal); K44.9 Diaphragmatic hernia without obstruction or gangrene; K31.89 Other diseases of stomach and duodenum; K55.20 Angiodysplasia of colon without hemorrhage; K62.1 Rectal polyp; K64.8 Other hemorrhoids; Q43.8 Other specified congenital malformations of intestine; Z86.010 Personal history of colon polyps
CPT/HCPCS: 00813; 43239; 45385; 88305; 99100; J2704; J3490

== ENCOUNTER 2024-05-23 09:23 | Outpatient (CLI) | payer MEDICARE, BC, SELFPAY ==
--- OUTSIDE RECORDS SUMMARY | 2024-05-23 09:27 | XMS_ITS ---
Author Organization [facility] Address [address] [place] [address] Care Team Providers Care Operating Room Nurse Name Role Phone Unavailable Unavailable Unavailable Surgery Details Not on file Complications Check Surgery Details section. Procedure Estimated Blood Loss Check Surgery Details section. Procedure Findings Check Surgery Details section. Procedure Specimens Taken Check Surgery Details section.
--- OUTSIDE RECORDS SUMMARY | 2024-05-23 09:27 | XMS_ITS | Clinical Summary ---
Author Organization [facility] Address [address] [place] [address] Care Team Providers Care Inside Plant Supervisor Name Role Phone Elsewhere, Pcp Primary Care Provider Unavailabl e Source Comments Patient records contain information from all sites at [facility]. For routine questions regarding patient records, call [phone] during business hours, M-F 8:00 AM - 5:00 PM Central Time. Record requests for emergency care only can be directed to [phone] at any time.[facility] Allergies Active Allergy Reactions Criticality Noted Date [...] was told to not take again Medications * This document contains information received from the source organization and may not represent a complete record from that organization. albuterol 90 mcg/actuation inhaler Inhale 1-2 puffs every 4 (four) hours as needed for wheezing. 1 Active atorvastatin (LIPITOR) 40 mg tablet Take 40 mg by mouth at bedtime. 1 Active calcium citrate 250 mg calcium tablet Take 250 mg by mouth 2 (two) times a day with meals. 0 Active tamsulosin (FLOMAX) 0.4 mg 24 hr capsule Take 2 capsules by mouth daily. noon 1 Active venlafaxine XR (EFFEXOR-XR) 75 mg 24 hr capsule Take 75 mg by mouth daily. noon 1 Active cetirizine (ZyrTEC) 10 mg tablet Take 1 tablet by mouth daily. noon 2 Active glucosam-chondr -mgt1-L4-X-leticia 750-625-1,000 mg-mg-unit tablet Take 1 capsule by mouth daily. Osteo bi-flex Active meclizine (ANTIVERT) 25 mg tablet Take 25 mg by mouth 3 (three) times a day as needed for vertigo. 3 Active sennosides (SENOKOT) 8.6 mg tablet Take 8.6 mg by mouth 2 (two) times a day. 9 Active melatonin 5 mg capsule Take 1 capsule by mouth at bedtime. 8 Active oxyBUTYnin (DITROPAN-XL) 5 mg 24 hr tablet Take 1 tablet by mouth at bedtime. 3 Active vitamins A,C,E-zinc-lawson er (PRESERVISION AREDS) 7,160 Units-113 mg-100 Units per tablet Take 1 tablet by mouth daily. noon Active omeprazole (PriLOSEC) [address] capsule Take 20 mg by mouth every morning before breakfast. 3 Active warfarin (COUMADIN) 5 mg tablet Take 0.5-1 tablets (2.5-5 mg total) by mouth daily. Wednesday, and Wednesday take 5mg tablet once a day. Take 2.5 mg on Wednesday, Wednesday, Wednesday and Wednesday. 3 Active acetaminophen (TYLENOL) 500 mg tablet Take 2 tablets (1,000 mg total) by mouth every 6 (six) hours. 100 tablet 3 Active LORazepam (ATIVAN) 1 mg tablet Take 1/2 tablet by mouth every morning and 1 tablet at noon. 20 tablet 1 01/08/2023 4:09 PM CDT 3 Active Ozempic 2 mg/dose (8 mg/3 mL) injection Inject 2 mg under the skin over 168 hr. 3 Active metoprolol tartrate (LOPRESSOR) 25 mg tablet Take 25 mg by mouth as directed. 12.5 mg at noon, 25 mg at night 3 Active Advair Diskus 250-50 mcg/act diskus inhaler Inhale 1 puff 2 (two) times a day. 3 Active fluticasone propionate (FLONASE) 50 mcg/actuation nasal spray Administer 2 sprays into nostril(s) daily. 3 Active metoprolol succinate (TOPROL-XL) 25 mg 24 hr tablet Take 1 tablet by mouth daily. 3 Active sennosides-docu sate sodium (SENOKOT-S) 8.6-50 mg per tablet Take 1 tablet by mouth at bedtime as needed. 3 Active Mounjaro 5 mg/0.5 mL pen injector injection Inject 5 mg under the skin over 168 hr. 4 Active Active Problems Problem Noted Date Diagnosed [...] often do you attend chur ch or spiritism services? More than 4 times per year 09/03/2022 Do you belong to any clubs o r organizations such as buddhism groups, unions, fraternal or athletic groups, or [...] medical care, and heating? Somewhat hard 09/03/2022 [facility] [place] of Occupat ional Health - Occupational Stress [...] place to sleep or slept in a skilled nursing (including now)? No 09/03/2022 Nutrition Answer Date Recorded On average, how many serving s of [...] Sex Assigned at Male 09/03/2022 3:21 PM [facility] Legal Sex Male 2:18 PM CDT Gender Identity Male 09/03/2022 3:21 PM [facility] Sexual Orientation Straight 09/03/2022 3: 21 PM [facility] Last Filed Vital Signs Vital Sign Reading Time Taken Comments Blood Pressure 110/65 08/03/2023 3:21 PM [facility] Pulse 75 08/03/2023 3:21 PM [facility] Temperature 36.9 C (98.4 F) 11/03/2022 11:00 AM CDT Respiratory Rate 17 11/03/2022 11:00 AM CDT [...] Monitoring (PHQ-9) 1945 Diabetic Office Visit with Foot Exam 1945 Dilated Eye Exam 1945 Hepatitis C Screening 1945 Urine Albumin 1945 Hepatitis B Vaccines (1 of 3 - Risk 3-dose series) 2006 RSV vaccine - (32-36 weeks) or 60+ years (1 - 1-dose 75+ series) 2021 Depression Monitoring (PHQ-9 for quality tracking) 06/28/2023 Hemoglobin A1C 02/14/2024 08/16/2023, 05/0 08/2022, 08/06/2022, Additional history exists COVID-19 Vaccine ( season) 2024 07/12/2023, 11/11/2022, 03/25/2022, Additional history exists Influenza Vaccine (#1) 2024 , 03/25/2022, 03/21/2021, Additional history exists Office Visit for Blood Pressure Check / Re-check 08/03/2024 08/03/2023 Creatinine Level (Kidney Function Test) 01/09/2025 01/10/2024, 11/02/2023, 01/26/2023, Additional history exists DTaP,Tdap,and Td Vaccines (3 - Td or Tdap) 01/03/2029 01/03/2019, 11/27/2009 Pneumococcal vaccine (65+ years) Completed 05/17/2014, 02/04/2012, 02/24/2005 Zoster Vaccines Completed 01/28/2018, 09/26, 08/26/2007 Abdominal Aortic Aneurysm (AAA) Screen Discontinued 03/09/2022, 03/09/2022, 12/22/2019, Additional history exists Fall Risk Screen (Annual) Completed 08/03/2023 IPV Vaccines Aged Out No longer eligi ble based on patient's age to complete this topic Medical Devices Implanted Type Area Sliding Joint Maker Device Identifier Shelf Expiration Date Model / Serial / Lot Cmnt Bn Smp 40gm - [id number] Implanted:Qty : 1 on 10/28/2022 by Chepe Winkler M.D. at [facility] Bone Cement Left: Knee Conway 6191-1-00 1 / / Cmnt Bn [facility] 40gm - [id number] Implanted:Qty : 1 on 10/28/2022 by Chepe Winkler M.D. at [facility] Bone Cement Left: Knee Conway 6191-1-00 1 / / Hip [facility] Cmnt 24 - [id number] - [id number] Implanted:Qty : 1 on 10/28/2022 by Chepe Winkler M.D. at [facility] Hardware e.g. pins/screws/ rods Left: Knee Conway [id number] 07/08/2027 V508-1701 / [id number] Bsplt Tib Prs Lt 5d Szg - [id number] Implanted:Qty : 1 on 10/28/2022 by Chepe Winkler M.D. at [facility] Knee Implant Left: Knee [employer] 04/26/2032 [id number] 79- / / [id number] Kn Stm Prs Cmnt 14x30 - [id number] Implanted:Qty : 1 on 10/28/2022 by Chepe Winkler M.D. at [facility] Knee Implant Left: Knee [employer] 09/22/2032 [id number] 01-14 [id number] Kn Fem Prs Lt Cmnt Ps Sz-9 - [id number] Implanted:Qty : 1 on 10/28/2022 by Chepe Winkler M.D. at [facility] Knee Implant Left: Knee [employer] 11/12/2031 [id number] 66-01 / / [id number] Ins Tib Prs Vv Ps Lt 6 9 Gh 16 - [id number] Implanted:Qty : 1 on 10/28/2022 by Chepe Winkler M.D. at [facility] Knee Implant Left: Knee [employer] 09/26/2023 [id number] 09-16 / / [id number] Explanted Type Area Sliding Joint Maker Device Identifier Shelf Expiration Date Model / Serial / Lot Hardware E.G. Pins/Screws/Ro ds Explanted:Qty: 7 on 10/28/2022 at [facility] Hardware e.g. pins/screws/ rods Left: Leg Description:6 screws and a t ibial willie Procedures Procedure Name Priority Date/Time Associated Diagnosis Comments BASIC METABOLIC PANEL, S/P Routine 2022 3:28 AM CDT HEMOGLOBIN A1C, B Routine 10/28/2022 9:2 6 AM CDT from Last 3 Months or Most Recently Relevant to Health Maintenance Results * (ABNORMAL) Basic Metabolic Panel (2022 3:28 AM CDT) Potassium, S 4.2 3.6 - 5.2 mmol/L 2022 4:07 AM CDT DTL Sodium, S 140 135 - 145 mmol/L 2022 4:07 AM CDT DTL Chloride, S 103 98 - 107 mmol/L 2022 4:07 AM CDT DTL Bicarbonate, S 28 22 - 29 mmol/L 2022 4:07 AM CDT DTL Anion Gap 9 7 - 15 2022 4:07 AM CDT DTL BUN (Blood Urea Nitrogen), S 13 8 - 24 mg/dL 2022 4:07 AM CDT DTL Creatinine 0.97 0.74 - 1.35 mg/dL 2022 4:07 AM CDT DTL Estimated GFR (eGFR) 81 >=60 mL/min/BSA 2022 4:07 AM CDT DTL Comment: Estimated GFR calculated using the 2020 CKD_EPI creatinine equation. Calcium, Total, S 8.4(L) 8.8 - 10.2 mg/dL 2022 4:07 AM CDT DTL Glucose, S 133 70 - 140 mg/dL 2022 4:07 AM CDT DTL Blood (Blood, Venous) 2022 3:28 AM CDT 2022 3:50 AM CDT us Juan Carlos Zheng M.D. LAB BLOOD ADD-ON Final Resul t [facility] [address] [place] [address], [facility] [address] [place] [address] * (ABNORMAL) Hemoglobin A1c (10/28/2022 9:26 AM [...] Juan Carlos Zheng M.D. LAB BLOOD ADD-ON Final Resul t [facility] [address] [place] [address], [place] DTL [facility] [address] [place] [address] from Last 3 Months or Most Recently Relevant to Health Maintenance Insurance MEDICARE [facility] Advance Directives For more information, please contact: [phone] * Full Code (Latest Code Status on File) Date Activated Date Inactivated Comments 10/28/2022 8:21 PM 11/03/2022 3:34 PM Question Answer Comments Full Code: Not Discussed Due to: Patient not available Care Teams Inside Plant Supervisor Relationship Specialty Start Date End Date Elsewhere, Pcp PCP - General Internal Medicine 09/08/22
--- OUTSIDE RECORDS SUMMARY | 2024-05-23 09:27 | XMS_ITS | Referral Summary ---
Author Organization [facility] Address [address] [place] [address] Care Team Providers Care Tariff Counsel Name Role Phone Elsewhere, Pcp Primary Care Provider Unavailabl e Source Comments Patient records contain information from all sites at [facility]. For routine questions regarding patient records, call [phone] during business hours, M-F 8:00 AM - 5:00 PM Central Time. Record requests for emergency care only can be directed to [phone] at any time.[facility] Allergies Active Allergy Reactions Criticality Noted Date [...] by mouth daily. noon 2 Active glucosam-chondr -ecq7-R5-H-leticia 750-625-1,000 mg-mg-unit tablet Take 1 capsule by [...] often do you attend chur ch or mormonism services? More than 4 times per year 09/03/2022 Do you belong to any clubs o r organizations such as orthodox groups, unions, fraternal or athletic groups, or [...] medical care, and heating? Somewhat hard 09/03/2022 [facility] ional [facility] - Occupational Stress [...] Sex Assigned at Male 09/03/2022 3:21 PM APPLIED ANTHROPOLOGIST Legal Sex Male 2:18 PM CDT Gender Identity Male 09/03/2022 3:21 PM APPLIED ANTHROPOLOGIST Sexual Orientation Straight 09/03/2022 3: 21 PM APPLIED ANTHROPOLOGIST Last Filed Vital Signs Vital Sign Reading Time Taken Comments Blood Pressure 110/65 08/03/2023 3:21 PM APPLIED ANTHROPOLOGIST Pulse 75 08/03/2023 3:21 PM APPLIED ANTHROPOLOGIST Temperature 36.9 C (98.4 F) 11/03/2022 11:00 [...] on file Medical Devices Implanted Type Area Manager Payroll Device Identifier Shelf Expiration Date Model / Serial / Lot Cmnt Bn Smp 40gm - [id number] Implanted:Qty : 1 on 10/28/2022 by Chepe Winkler M.D. at [facility] Bone Cement Left: Knee Jessica 6191-1-00 1 / / Cmnt Bn [facility] 40gm - [id number] Implanted:Qty : 1 on 10/28/2022 by Chepe Winkler M.D. at [facility] Bone Cement Left: Knee Jessica 6191-1-00 1 / / Hip [facility] Cmnt 24 - [id number] - [id number] Implanted:Qty : 1 on 10/28/2022 by Chepe Winkler M.D. at [facility] Hardware e.g. pins/screws/ rods Left: Knee Jessica [id number] 07/08/2027 H901-5189 / [id number] Bsplt Tib Prs Lt 5d Szg - [id number] Implanted:Qty : 1 on 10/28/2022 by Chepe Winkler M.D. at [facility] Knee Implant Left: Knee [employer] 04/26/2032 42-5320-0 79- / [id number] Kn Stm Prs Cmnt 14x30 - [id number] Implanted:Qty : 1 on 10/28/2022 by Chepe Winkler M.D. at [facility] Knee Implant Left: Knee [employer] 09/22/2032 42-5570-0 01-14 / [id number] Kn Fem Prs Lt Cmnt Ps Sz-9 - [id number] Implanted:Qty : 1 on 10/28/2022 by Chepe Winkler M.D. at [facility] Knee Implant Left: Knee [employer] 11/12/2031 42-5006-0 66- [id number] Ins Tib Prs Vv Ps Lt 6 9 Gh 16 - [id number] Implanted:Qty : 1 on 10/28/2022 by Chepe Winkler M.D. at [facility] Knee Implant Left: Knee [employer] 09/26/2023 42-5126-0 09-16 / [id number] Explanted Type Area Manager Payroll Device Identifier Shelf Expiration Date Model / Serial / Lot Hardware E.G. Pins/Screws/Ro ds Explanted:Qty: 7 on 10/28/2022 at [facility] Hardware e.g. pins/screws/ rods Left: Leg Description:6 screws and a t ibial willie Procedures Procedure Name Priority Date/Time Associated Diagnosis Comments BASIC METABOLIC PANEL, S/P Routine 2022 3:28 AM CDT HEMOGLOBIN A1C, B Routine 10/28/2022 9:2 6 AM CDT from Last 3 Months or Most Recently Relevant to Health Maintenance Results * (ABNORMAL) Basic Metabolic Panel (2022 3:28 AM CDT) [facility] Potassium, S 4.2 3.6 - 5.2 mmol/L [...] 3:28 AM CDT 2022 3:50 AM CDT Juan Carlos Zheng M.D. LAB BLOOD ADD-ON Final Resul t [facility] [address] [place] [address], [facility] [address] [place] [address] * (ABNORMAL) Hemoglobin A1c (10/28/2022 9:26 AM [...] M.D. LAB BLOOD ADD-ON Final Resul t [facility] [address] [place] [address], [place] DTL [facility] [address] [place] [address] from Last 3 Months or Most Recently Relevant to Health Maintenance Insurance MEDICARE [facility] Advance Directives For more information, please contact: [phone] * Full Code (Latest Code Status on File) Date Activated Date Inactivated Comments 10/28/2022 8:21 PM 11/03/2022 3:34 PM Question Answer Comments Full Code: Not Discussed Due to: Patient not available Care Teams Tariff Counsel Relationship Specialty Start Date End Date Elsewhere, Pcp PCP - General Internal Medicine 09/08/22
--- OUTSIDE RECORDS SUMMARY | 2024-05-23 09:28 | XMS_ITS | Clinical Summary ---
Author Organization [facility] Address [place], [place] [address] Care Team Providers Care Extrusion Former Name Role Phone Beni Wise Primary Care Provider [phone] Victor M Guevara PA Unavailable [phone] Unavailable [phone] Allergies Active Allergy Reactions Criticality Noted Date [...] Needs 99 months 1 Each 11/12/19 Active CPAPIndications:Ob structive sleep apnea CPAP machine for home use 15 cmw, full face mask x1/3month with a full face cushion x1/mo 1 Each 11/18/19 23 Active amoxicillin (AMOXIL) 500 mg capsule 01/22/20 Active polyethylene glycoL (MIRALAX) 17 gram/scoop powderIndications: Chronic constipation Mix 0.5 scoops (8.5 g) in liquid then take by mouth once daily. 235 g 01/27/20 23 Active blood-glucose meterIndications:D kadenziness,Type 2 diabetes mellitus without complication, without long-term current use of insulin (HC) by abdominal subcutaneous route. 1 Kit 01/27/20 23 Active lancetsIndications :Dizziness,Type 2 diabetes mellitus without [...] bedtime. 90 Tablet 3 05/04/20 23 Active tamsulosin (FLOMAX) 0.4 mg capsuleIndications :Benign prostatic hyperplasia with incomplete bladder emptying TAKE TWO CAPSULES BY MOUTH EVERY DAY AFTER A MEAL 180 Capsule 2 08/20/19 24 Active omeprazole (PRILOSEC) 20 mg Delayed-Release capsuleIndications :Chronic GERD TAKE 1 CAPSULE BY MOUTH EVERY DAY BEFORE A MEAL 90 Capsule 3 09/06/19 24 Active Kgsga-2-TOZ-EPA-Fi sh Oil (Fish OiL) 1,000 mg (120 mg-180 mg) cap Take by mouth. Active albuterol HFA (PRO-AIR; VENTOLIN; PROVENTIL) 90 mcg/actuation inhalerIndications :Chronic obstructive pulmonary disease, unspecified COPD type (HC) Inhale 1-2 Puffs by mouth every 4 hours if needed for Shortness Of Breath. 1 Each 10/04/19 24 Active oxybutynin XL (DITROPAN XL) 10 mg CR tabletIndications: OAB (overactive bladder) Take 1 Tablet (10 mg) by mouth once daily. 90 Tablet 3 11/02/19 24 Active Calcium Citrate 250 mg calcium tabletIndications: Nutritional deficiency TAKE 1 TABLET BY MOUTH TWO TIMES DAILY WITH MEALS 180 Tablet 2 01/03/20 24 Active Stool Softener-Stimulant Laxat 8.6-50 mg tabletIndications: Constipation, acute TAKE 1 TABLET BY MOUTH ONCE DAILY NEEDED FOR CONSTIPATION 90 Tablet 3 01/11/20 24 Active Allergy Relief, cetirizine, 10 mg tabletIndications: Seasonal allergies TAKE ONE TABLET BY MOUTH EVERY DAY 90 Tablet 3 01/24/20 24 Active vit-mineral eye [id number]-[id number]-1m g-lut-zeax (PreserVision AREDS-2) capsule Take 1 Capsule by mouth two times daily. 01/25/20 24 Active polyethylene glycol-electrolyte (GOLYTELY) 236-22.74-6.74 -5.86 gram suspensionIndicati ons:Encounter for screening colonoscopy Drink 2 liters (half the bottle) the day before colonoscopy and 2 liters (remaining prep) 6 hours prior to colonoscopy appointment. 4000 mL 02/08/20 24 Active semaglutide (Ozempic) 2 mg/dose (8 mg/3 mL) subcutaneous penIndications:Typ e 2 diabetes mellitus without complication, without long-term current use of insulin (HC),Morbid obesity (HC) INJECT 0.75 MLS. (2 MG) UNDER THE SKIN ONCE A WEEK 9 mL 02/20/20 24 Active mometasone-formote rol (Dulera) 100-5 mcg/actuation inhalerIndications :Chronic obstructive pulmonary disease, unspecified COPD type (HC) INHALE 2 PUFFS BY MOUTH 2 TIMES A DAY 39 g 03/02/20 24 Active budesonide-formote roL (SYMBICORT) 160-4.5 mcg/actuation (160-4.5 mcg each actuation) inhalerIndications :Chronic obstructive pulmonary disease, unspecified COPD type (HC) Inhale 2 Puffs by mouth two times daily. Inhale 2 puffs twice daily and 1-2 puffs every 4 hours as needed for asthma exacerbations. Max of 8 puffs per day. 1 Each 03/03/20 24 Active venlafaxine (EFFEXOR XR) 75 mg cp24 Extended-Release capsuleIndications :Anxiety Take 1 Capsule (75 mg) by mouth once daily with a meal. 90 Capsule 1 03/10/20 24 Active cholecalciferol (VITAMIN D3) 2,000 unit capsule 02/23/20 24 Active sennosides (Senna) 8.6 mg tablet Take by mouth. 02/23/20 24 Active gabapentin (NEURONTIN) 100 mg capsuleIndications :Peripheral sensory neuropathy TAKE THREE CAPSULES BY MOUTH TWICE A DAY 540 Capsule 3 04/11/20 24 Active atorvastatin (LIPITOR) 40 mg tabletIndications: Hyperlipidemia, unspecified hyperlipidemia type Take 1 Tablet (40 mg) by mouth at bedtime. 90 Tablet 3 04/11/20 24 Active CPAPIndications:Ob structive sleep apnea,Hypersomnole nce CPAP (E0601) machine for home use at pressure: 15 , Choice of mask (A7030 or A7034) w/full face cushion (A7031) x1/mo, nasal cushion (A7032) x2/mo, or nasal pillows (A7033) x 2/mo; Length of Need: 99 months; Frequency of use: Daily 04/18/20 24 Active metoprolol succinate (TOPROL XL) 25 mg Sustained-Release tabletIndications: Palpitations TAKE ONE TABLET BY MOUTH EVERY DAY 90 Tablet 05/04/20 24 Active enoxaparin (Lovenox) 120 mg/0.8 mL injectionIndicatio ns:Pulmonary embolism, bilateral (HC),Paroxysmal atrial fibrillation (HC),Anticoagulati on monitoring, INR range 2-3,Acute embolism and thrombosis of deep vein of left lower extremity (HC) Inject 120 mg subcutaneous every 12 hours. 8 mL 1 05/12/20 24 Active warfarin (COUMADIN) 5 mg tabletIndications: Pulmonary embolism, bilateral (HC),Paroxysmal atrial fibrillation (HC),Anticoagulati on monitoring, INR range 2-3,Acute embolism and thrombosis of deep vein of left lower extremity (HC) Take by mouth 06/04: Hold; 06/05: Hold; 06/06: Hold; 06/07: Hold; 06/08: Hold; Otherwise 2.5 mg every Wed, Wed, Wed; 5 mg all other days 05/12/20 24 Active LORazepam 1 mg tabletIndications: Anxiety and depression TAKE ONE-HALF TABLET BY MOUTH EVERY MORNING AND TAKE ONE TABLET BY MOUTH EVERY DAY AT NOON 50 Tablet 05/15/20 24 Active VITAMINS A,C,T-BEHA-VVHASG (PRESERVISION AREDS) 2,148 mcg-113 mg-45 mg-17.4mg tablet Take 1 Tablet by mouth. 024 Discontinued(*P atient states no longer taking) clindamycin (CLEOCIN) 300 mg capsule 12/09/19 024 Discontinued(*P atient states no longer taking) magnesium citrate (CITRATE OF MAG) solution Take 120 mL by mouth once daily if needed for Constipation. 01/25/20 024 Discontinued(*P atient states no longer taking) metoprolol succinate (TOPROL XL) 25 mg Sustained-Release tabletIndications: Palpitations Take 0.5 Tablets (12.5 mg) by mouth once daily. 03/13/20 24 024 Discontinued LORazepam (ATIVAN) 1 mg tabletIndications: Anxiety and depression TAKE ONE-HALF TABLET BY MOUTH EVERY MORNING AND TAKE ONE TABLET BY MOUTH EVERY DAY AT NOON 50 Tablet 04/11/20 024 Discontinued(Re order (E-cancel not sent)) warfarin (COUMADIN) 5 mg tabletIndications: Pulmonary embolism, bilateral (HC),Paroxysmal atrial fibrillation (HC),Anticoagulati on monitoring, INR range 2-3,Acute embolism and thrombosis of deep vein of left lower extremity (HC) Take by mouth 2.5 mg (5 mg x 0.5) every Sun, Wed; 5 mg (5 mg x 1) all other days in the evening OR as directed 80 Tablet 04/19/20 Discontinued(Re order (E-cancel not sent)) warfarin (COUMADIN) 5 mg tabletIndications: Pulmonary embolism, bilateral (HC),Paroxysmal atrial fibrillation (HC),Anticoagulati on monitoring, INR range 2-3,Acute embolism and thrombosis of deep vein of left lower extremity (HC) Take by mouth 04/27: Hold; Otherwise 2.5 mg every Sun, Tue, Fri; 5 mg all other days in the evening OR as directed 04/26/20 24 024 Discontinued(Ot her - add note to specify (E-cancel not sent)) warfarin (COUMADIN) 5 mg tabletIndications: Pulmonary embolism, bilateral (HC),Paroxysmal atrial fibrillation (HC),Anticoagulati on monitoring, INR range 2-3,Acute embolism and thrombosis of deep vein of left lower extremity (HC) Take by mouth 2.5 mg (5 mg x 0.5) every Sun, Tue, Fri; 5 mg (5 mg x 1) all other days in the evening OR as directed 05/03/20 024 Discontinued(Re order (E-cancel not sent)) Active Problems Problem Noted Date Diagnosed Date Adenoma of small intestine 04/05/2024 Adenoma of duodenum 04/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 02/23/2024 Controlled type 2 diabetes m ellitus with complication, without long-term current use of insulin 07/12/2023 Osteoarthritis of knee 10/19/2022 Humeral head fracture 10/27/2021 Anemia 10/27/2021 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 05/15/2021 Bilateral inguinal hernia without obstruction or gangrene 03/21/2021 Vitamin D insufficiency 04/17/2019 Tibial plateau fracture, lef t, closed, with routine healing, subsequent encounter 04/14/2019 Overview (10/27/2021): Last Assessment & Plan: 73yoM 4 months [...] Elevated PSA 05/22/2015 Adenomatous colon polyp 03/13/2015 Overview (02/16/2024): Colonoscopy 02/2015 polyp repeat in 5 years Colonoscopy 03/2020 three polyps, repeat in 3 years Colonoscopy 01/2024 hyperplastic polyp, repeat in 5 years Type 2 diabetes mellitus without complication Anticoagulation monitoring, INR range 2-3 2013 Paroxysmal atrial fibrillation 01/19/2014 Overview (10/06/2022): - S/P atrial fibrillation ablation 02/22/2017 - S/P atrial fibrillation ablation 02/22/2017 - S/P atrial fibrillation ablation 02/22/2017 Anxiety 01/03/2014 Post concussion syndrome 01/03/2014 Vertigo 01/03/2014 Overview (02/01/2024): Treated with therapy and twice daily benzo Gait instability 01/03/2014 Mixed hyperlipidemia 09/29/2013 Umbilical hernia 04/17/2013 Gastroesophageal reflux disease 10/20/2012 Polyp of duodenum 01/27/2011 Overview (02/16/2024): EGD 01/2024 recurrent duodenal polyp, recommend referral to larger GI center Obstructive sleep apnea syndrome 08/25/2010 S/P insertion [...] Encounters Date Type Department Care Team Description 05/18/2024 Travel 05/16/2024 10:50 AM RESIDENTIAL NURSE Office Visit [facility] [address] [place] [address] Stalin Jeffers MD Derm Problem (Wound on right ear that won't heal and not injury it just started to weep one day and won't heal x one month.) 05/16/2024 Telephone [facility] [address] [facility] [address] [place] [address] Pura Zhang MD Appointment (open wound) 05/16/2024 Travel 05/15/2024 Refill [facility] [address] [place] [address] Beni Wise DO Refill Request (Ativan) 05/11/2024 11:00 AM RESIDENTIAL NURSE Orders Only [facility] [address] [place] [address] Lab, Farm Lab 05/11/2024 Telephone [facility] [address] [place] [address] Beni Wise, Anticoagulation (orders) 05/11/2024 Anticoagulation (warfarin) [facility] [address] [place] [address] 1, [facility] Antico[facility] 05/11/2024 Travel 05/03/2024 11:00 AM RESIDENTIAL NURSE Orders Only [facility] [address] [place] [address] Lab, Farm Lab 05/03/2024 Anticoagulation (warfarin) [facility] [address] [place] [address] 1, [facility] Anticoagulation 05/03/2024 Travel 05/02/2024 Telephone [facility] [address] [place] [address] Beni Wise, DO Anticoagulation (lab orders) 05/01/2024 Telephone [facility] [address] [place] [address] Beni Wise, Anticoagulation (Hold orders) 05/01/2024 Refill [facility] [address] [place] [address] Beni Wise DO Refill Request (Metoprolol Succinate) 04/26/2024 10:30 AM CDT Orders Only [facility] [address] [facility] [place] [address] Lab, [facility] 04/26/2024 Anticoagulation (warfarin) [facility] [address] [place] [address] 1, [facility] Anticoagulation 04/26/2024 Travel 04/21/2024 Travel 04/20/2024 Travel 04/19/2024 Telephone [facility] [address] [facility] [place] [address] Beni Wise DO Anticoagulation (Procedure Warfarin Hold) 04/19/[address] [place] [address] Beni Wise DO Refill Request (Warfarin) 04/18/2024 11:10 AM CDT Telemedicine [address] [address] Susan Law [employer]ATOR Telehealth; Sleep Consult 04/17/2024 10:40 AM CDT Office Visit [address] [place] [address] Jacob Mcrae MD Musculoskeletal Problem (Follow up low back pain, ASHVIN on 01/04/2024) 04/17/2024 Travel 04/11/2024 Telephone [facility] [address] [facility] [place] [address] Beni Wise DO Need Meds 04/10/[address] [address] Beni Wise DO Refill Request (Gabapentin, Lorazepam, Atorvastatin) 04/05/2024 12:25 PM CDT Office Visit [address] [address] Beni Wise DO Fatigue (Worse patient and feel he is less active and more tired ) 04/05/2024 Travel 03/30/[address] [address] Beni Wise DO Appointment Request (30 DAY FOLLOW UP ) 03/27/2024 3:30 PM CDT Orders Only [facility] [address] [place] [address] Lab, Farm Lab 03/27/2024 Anticoagulation (warfarin) [facility] [address] [place] [address] 1, [facility] Antico[facility] 03/27/2024 Travel 03/22/2024 Telephone [facility] [address] [place] [address] Beni Wise DO Anticoagulation (AC order ) 03/14/2024 Orders Only [facility] Scanner 1 scan: (1-Ord) [facility], 03/14/2024 03/13/2024 2:55 PM CDT Office Visit [facility] [address] [place] [address] Beni Wise DO Fatigue 03/13/2024 Travel 03/06/2024 Refill [facility] [address] [place] [address] Beni Wise DO Refill Request (Venlafaxine) 03/03/2024 Telephone [facility] [address] [place] [address] Beni Wise DO Medication Management (mometasone-formotero l (Dulera) 100-5 mcg/actuation inhaler) 03/03/2024 Refill [facility] [address] [place] [address] Beni Wise DO Refill Request (Venlafaxine) 02/29/2024 Refill [facility] [address] [place] [address] Beni Wise DO Refill Request (Mometasone-formotero l, Lorazepam) 02/21/2024 2:15 PM CDT Orders Only [facility] [address] [place] [address] Lab, [facility] (Lab) 02/21/2024 Anticoagulation (warfarin) [facility] [address] [place] [address] 1, [facility] Anticoagulation 02/21/2024 Travel from Last 3 Months Immunizations Name Administration Dates Next Due AMB Influenza, IIV3 (Age >=3 years)(Flu Clinic Only) 04/23/2010 COVID-19 VACCINE SPIKEVAX (M ODERNA 50MCG/0.5ML) 12YO+ PFS 04/05/2024,07/12/2023 COVID-19 vaccine (Moderna 100mcg/0.5mL) PF, MDV 05/20/2021,09/13/2020,08/16/2020 COVID-19 vaccine (Pfizer-Bio NTech 30mcg/0.3mL) 12YO+ BIVALENT PF, MDV 03/25/2022 Influenza A (H1N1), Inactivated 06/07/2009 Influenza A (H1N1), Inactiva solis (Age >=3 Years) 06/07/2009 Influenza Virus, Unspecified 06/07/2009 Influenza, High-dose Inactivated 04/02/2016,02/26 Influenza, IIV3 (Age 6-35 mos) 03/04/2011 Influenza, IIV3 (Age >=3 years) 04/17/20 13,03/25/2012,03/04/2011,2009,03/30/2008,03/31/2007,04/27/2006,1 07/07/2004 Influenza, IIV4 03/13/2014 Influenza, Inactivated AIIV4 (Age 65+ Years) Preserv Free 07/12/2023,03/25/2022,03/21/2021,2019 Influenza, Inactivated IIV3 (Age 65+ Years) Preserv Free 04/05/2024,03/06/2019,05/23/2018,2016 Pneumococcal Poly,23-Valent (Pneumovax) 02/04/2012,02/24/2005 Pneumococcal conj 13-Valent [...] disease Maternal Grandmother Heart Disease Maternal Grandmother [place] Heart Disease Mother coumadin Hypertension Mother Osteoporosis [...] 0 08/16/2023 Social Connections Answer Date Recorded Do you often feel lonely or isolated from those around you? 0 01/10/2024 Financial Resource Strain Answer Date R ecorded Difficulty of Paying Living Expenses 3 01/10/2024 Difficulty of Paying Living Expenses Not on file 01/10/2024 Food Insecurity Answer Date Recorded Do you worry your food will run out before you are able to buy more? 1 01/10/2024 Transportation Needs Answer Date Record ed Does lack of transportation keep you from medica l appointments? 1 01/10/2024 Does lack of transportation keep you from work, meetings or getting things that you need? 1 01/10/2024 Housing Stability Answer Date Recorded What is your housing situation today? 1 01/10/2024 Sex and Gender Information Value Date Recorded Sex Assigned at Not on file Gender Identity Male 11/17/2023 4:46 PM CDT Sexual Orientation Straight 11/17/2023 4: 46 PM CDT Obstetrics History Last Filed Vital Signs Vital Sign Reading Time Taken Comments Blood Pressure 120/60 05/16/2024 11:10 AM RESIDENTIAL NURSE Pulse 81 05/16/2024 11:10 AM RESIDENTIAL NURSE Temperature 37 C (98.6 F) 05/16/2024 11:10 AM RESIDENTIAL NURSE Respiratory Rate 20 10/06/2023 1:05 PM CDT Oxygen Saturation 94% 05/16/2024 11:10 AM RESIDENTIAL NURSE Inhaled Oxygen Concentration - - Weight 131.5 kg (290 lb) 05/16/2024 11:10 AM RESIDENTIAL NURSE Height 172.7 cm (5' 8) 10/06/2023 1:05 PM CDT Body Mass Index 44.09 10/06/2023 1:05 PM CDT Plan of Treatment Upcoming Encounters Date Type Department Care Team (Latest Contact Info) Description 10:40 AM RESIDENTIAL NURSE Office Visit [facility] [address] [place] [address] Jacob Mcrae MD [address] [place] [address] Arrived 10:35 AM RESIDENTIAL NURSE Office Visit [facility] [address] [place] [address] Beni Wise DO [address] [place] [address] 4 11:15 AM RESIDENTIAL NURSE Orders Only [facility] [address] [place] [address] Lab, Farm 4 10:25 AM RESIDENTIAL NURSE Hospital Encounter [facility] [address] [place] [address] Yvon Casiano MD [address] [address] 4 11:25 AM RESIDENTIAL NURSE - 4 12:25 PM RESIDENTIAL NURSE Surgery [facility] [address] [place] [address] Yvon Casiano MD [address] [facility] [address] [place] [address] ESOPHAGOGASTRODUODENOSCOPY WITH ENDOSCOPIC RESECTION [place]UCOSA 4 1:30 PM RESIDENTIAL NURSE Office Visit [facility] [address] [place] [phone] Pura Zhang MD [address] [facility] [address] [place], [place] [id number] 5 1:30 PM RESIDENTIAL NURSE Office Visit [facility] [address] [place] [phone] Gustavo Torres MD [address] [facility] [address] [place], [place] [address] 5 10:45 AM RESIDENTIAL NURSE Office Visit [facility] [address] [place] [address] Sukh Almazan MD [address] [facility] [place] [address] Scheduled Procedures Name Priority Associated Diagnoses Date/Ti me ESOPHAGOGASTRODUODENOSCOPY W ITH ENDOSCOPIC RESECTION MUCOSA Elective duodenal adenoma 06/09/2024 11:25 AM RESIDENTIAL NURSE Health Maintenance Due Date Last Done Comments RSV vaccine for adults or (1 - 1-dose 75+ series) [address] (for lung CA) ag [...] 01/28/2018, 10/14/2017, 08/26/2007 Tdap Completed 01/03/2019, 11/27/2009 COVID-19 vaccine series Completed 04/05/20, 07/12/2023, 11/11/2022, Additional history exists Influenza for age 65+ Completed 04/05/2024 , 07/12/2023, 03/25/2022, Additional history exists Procedures Procedure Name Priority Date/Time Associated Diagnosis Comments AMB EPIDURAL STEROID INJECTION Routine 05/23/2024 7:59 AM RESIDENTIAL NURSE Degeneration of intervertebral disc of lumbar region with discogenic back pain and lower extremity pain Closed compression fracture of L1 lumbar vertebra with routine healing, subsequent encounter Facet arthropathy - L3-4 & L4-5 PROTIME-INR STAT 05/11/2024 10:57 AM RESIDENTIAL NURSE Pulmonary embolism, bilateral (HC) Paroxysmal atrial fibrillation (HC) Anticoagulation monitoring, INR range 2-3 CBC W PLT NO DIFF Routine 05/11/2024 10: 52 AM RESIDENTIAL NURSE Pulmonary embolism, bilateral (HC) Paroxysmal atrial fibrillation (HC) Anticoagulation monitoring, INR range 2-3 CREATININE Routine 05/11/2024 10:52 AM RESIDENTIAL NURSE Pulmonary embolism, bilateral (HC) Paroxysmal atrial fibrillation (HC) Anticoagulation monitoring, INR range 2-3 PROTIME-INR Routine 05/03/2024 10:52 AM RESIDENTIAL NURSE Pulmonary embolism, bilateral (HC) Paroxysmal atrial fibrillation (HC) Anticoagulation monitoring, INR range 2-3 PROTIME-INR STAT 04/26/2024 10:26 AM CDT Pulmonary embolism, bilateral (HC) Paroxysmal atrial fibrillation (HC) Anticoagulation monitoring, INR range 2-3 INR,POCT Routine 03/27/2024 3:08 PM CDT Pulmonary embolism, bilateral (HC) Paroxysmal atrial fibrillation (HC) Anticoagulation monitoring, INR range 2-3 Other specified transient cerebral ischemias SCAN-EYE EXAM 03/14/2024 12:00 AM CDT VITAMIN D 25 (DEFICIENCY) Routine 03/13/2024 3:36 PM CDT Vitamin D insufficiency HEMOGLOBIN Routine 03/13/2024 3:36 PM CDT Macrocytic anemia AMB CONSULT TO GASTROENTEROLOGY Routine 02/24/2024 7:24 PM CDT Adenomatous duodenal polyp INR,POCT Routine 02/21/2024 2:43 PM CDT Pulmonary embolism, bilateral (HC) Paroxysmal atrial fibrillation (HC) Anticoagulation monitoring, INR range 2-3 CT CHEST SCREENING LOW DOSE WO CONTRAST Routine 05/06/2023 4:15 PM RESIDENTIAL NURSE Encounter for screening for lung cancer Personal history of nicotine dependence ANTI HCV Routine 12/12/2014 8:52 AM CDT Unspecified hereditary and idiopathic peripheral neuropathy Abnormality of gait Dizziness and giddiness from Last 3 Months or Most Recently Relevant to Health Maintenance Results * (ABNORMAL) STAT - Protime for POCT-INR >4.0 [56004.2] - Standing Order (05/11/2024 10:57 AM RESIDENTIAL NURSE) Only the most recent of3 resultswithin the time period is included. INR 2.9(H) <1.3 05/11/2024 3:19 PM RESIDENTIAL NURSE [facility] PROTIME 33.2(H) 10.6 - 12.4 sec 05/11/2024 3:19 PM RESIDENTIAL NURSE [facility] Blood BLOOD SPECIMEN / Unknown [facility] / Unknown 05/11/2024 10:57 AM RESIDENTIAL NURSE 05/11/2024 10:57 AM RESIDENTIAL NURSE Narrative [facility] - 05/11/2024 3:19 PM RESIDENTIAL NURSE Therapeutic Range 2.0-3.0 for most anticoagulated patients 2.5-3.5 [...] is on [facility]. Beni Wise DO HEMATOLOGY [facility] [address] [place] [address], * (ABNORMAL) CBC W PLT NO DIFF [65157.1] (05/11/2024 10:52 AM RESIDENTIAL NURSE) WHITE BLOOD CELL COUNT 4.5 3.8 - 10.8 Thousand/u L [facility] RED BLOOD CELL COUNT 3.68(L) 4.20 - 5.80 Million/uL [facility] HEMOGLOBIN 12.1(L) 13.2 - 17.1 g/dL [facility] HEMATOCRIT 36.5(L) 38.5 - 50.0 % [facility] MCV 99.2 80.0 - 100.0 fL [facility] MCH 32.9 27.0 - 33.0 pg [facility] MCHC 33.2 32.0 - 36.0 g/dL [facility] Comment: For adults, a slight decrease in the calculated MCHC value (in the range of 30 to 32 g/dL) is most likely not clinically significant; however, it should be interpreted with caution in correlation with other red cell parameters and the patient's clinical condition. RDW 12.6 11.0 - 15.0 % [facility] PLATELET COUNT 189 140 - 400 Thousand/u L [facility] MPV 11.0 7.5 - 12.5 fL [facility] Blood BLOOD SPECIMEN / Unknown 05/11/2024 10:52 AM RESIDENTIAL NURSE 05/11/2024 10:52 AM RESIDENTIAL NURSE Beni Jose Alejandrohumberto CHONG HEMATOLOGY [facility] [address] [place] [address], [facility] [address] [place] [address] * CREATININE [[id number]] (05/11/2024 10:52 AM RESIDENTIAL NURSE) CREATININE 0.99 0.70 - 1.28 mg/dL [facility] EGFR 78 > OR = 60 mL/min/1.73 m2 [facility] Blood BLOOD SPECIMEN / Unknown 05/11/2024 10:52 AM RESIDENTIAL NURSE 05/11/2024 10:52 AM RESIDENTIAL NURSE Beni Wise DO CHEMISTRY Performing Organization Address [facility]/ZIP Co de Phone Number [facility] [address] [place] [phone], [facility] [address] [place] [address] * (ABNORMAL) INR,POCT (03/27/2024 3:08 PM CDT) Only the most recent of2 resultswithin the time period is included. INR 3.0(H) ratio [facility] Comment: INRs >2.9 may be falsely elevated in patients receiving either unfractionated Heparin or Low Molecular Weight Heparin. Follow up testing in a hospital laboratory may be helpful if clinically indicated. INR results of > or = 5.0 should be verified using the standard venipuncture procedure. Reference Range 0.9-1.1 Moderate-intensity Warfarin Therapy 2.0-3.0 Higher-intensity Warfarin Therapy 3.0-4.0 PROTHROMBIN TIMEP 36.1(H) 10.5 - 13.1 sec [facility] Comment: Point of care fingerstick Prothrombin Time/INR results may vary from venous Prothrombin Time/INR methodologies. Any results exhibiting inconsistency with the patient's clinical status should be repeated using a venous Prothrombin Time/INR method. Blood BLOOD SPECIMEN / Unknown 03/27/2024 3:08 PM CDT 03/27/2024 3:08 PM CDT Narrative [facility] - 03/27/2024 3:18 PM CDT AN UPDATE OR CORRECTION HAS BEEN MADE TO NAME Beni Wise DO LABORATORY [facility] [address] [place] [address], [facility] [address] , [place] [address] * SCAN-EYE EXAM (03/14/2024 12:00 AM CDT) Scanner OTHER * VITAMIN D 25 (DEFICIENCY) (03/13/2024 3:36 PM CDT) VITAMIN D,25-OH,TOTAL,IA 36 30 - 100 ng/mL [facility] Comment: Vitamin D Status 25-OH Vitamin D: Deficiency: <20 ng/mL Insufficiency: 20 - 29 ng/mL Optimal: > or = 30 ng/mL For 25-OH Vitamin D testing on patients on D2-supplementation and patients for whom quantitation of D2 and D3 fractions is required, the QuestAssureD(TM) 25-OH VIT D, (D2,D3), LC/MS/MS is recommended: order code 58041 (patients >2yrs). See Note 1 Note 1 For additional information, please refer to http://[email or web address].[email or web address]/faq/[email or web address] (This link is being provided for informational/ educational purposes only.) Blood BLOOD SPECIMEN / Unknown 03/13/2024 3:36 PM CDT 03/13/2024 3:37 PM CDT Beni Wise DO SEND OUTS Performing Organization Address City/[facility]/ZIP Co de Phone Number [facility] [address] [place] [address], [facility] [address] [place] [address] * (ABNORMAL) HEMOGLOBIN (03/13/2024 3:36 PM CDT) HEMOGLOBIN 12.2(L) 13.2 - 17.1 g/dL [facility] Blood BLOOD SPECIMEN / Unknown 03/13/2024 3:36 PM CDT 03/13/2024 3:37 PM CDT Beni Wise DO HEMATOLOGY Performing Organization Address [facility]/ZIP Co de Phone Number [facility] [address] [place] [address], [facility] [address] [facility] [place] [address] * CT CHEST SCREENING LOW DOSE WO CONTRAST [[id number]] (05/06/2023 4:15 PM RESIDENTIAL NURSE) Anatomical Region Laterality Modality Computed Tomogra phy Impressions 05/07/2023 11:16 AM RESIDENTIAL NURSE 1. Densities adjacent to the right and [...] to as low as reasonably achievable. Dictated by: Sarai De La Torre MD @05/07/2023 7:05:12 AM/JARETH:ayan Narrative 05/07/2023 11:16 AM RESIDENTIAL NURSE For Patients: As a result of the Century Cures Act, medical imaging exams and procedure reports are released immediately into your electronic medical record. You may view this report before your referring provider. If you have questions, please contact your [...] T7, T12 and L1. Upper abdomen: Unremarkable. Bein Jose Alejandrohumberto DO CT * ANTI HCV (12/12/2014 8:52 AM CDT) HEPATITIS C ANTIBODY Non-Reacti ve Non-Reacti ve 12/12/2014 2:47 PM CDT [facility] Blood specimen (specimen) BLOOD SPECIMEN / Unknown Venipuncture / Unknown 12/12/2014 8:52 AM CDT 12/12/2014 9:01 AM CDT Narrative [facility] - 12/12/2014 2:47 PM CDT Antibodies to HCV not detected; does not exclude the possibility of exposure to HCV. Carter Cedeno MD SEND OUTS [facility] 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
== END 2024-05-23 09:24 | disposition home or self-care (01) ==
LOC: INJ CL 09:24
PROVIDERS: PCP Student in an Organized Health Care Education/Training Program; Visit Provider Family Medicine
DX: M54.16 Radiculopathy, lumbar region (principal); M48.05 Spinal stenosis, thoracolumbar region
CPT/HCPCS: 62323; J0702; Q9966

== ENCOUNTER 2024-06-14 18:29 | Emergency (ER) | payer MEDICARE, BC, SELFPAY ==
[2024-06-14 18:43] VITALS: BP 142/77; PULSE 86; RESP 16; TEMP 36.8; O2SAT 98; BMI 41.3
--- NOTE | 2024-06-14 18:47 | ED.EAR ---
HPI - Ear Problem General Time Seen by Provider: 18:47 Date Seen: 06/14/24 Chief complaint: Ear/Nose/Throat Problem Stated complaint: R ear biopsy [id number] blood thinners Time Seen by Provider: 06/14/24 18:42 Source: patient, family, RN notes reviewed and old records reviewed Mode of arrival: ambulatory Limitations: no limitations History of Present Illness HPI Narrative: 78-year-old male who presents today with bleeding from the right ear. He had a biopsy done yesterday, currently takes Coumadin and is on Lovenox bridge as he had endoscopy done recently. Did okay yesterday but then noted some bleeding starting this evening. No chest pain or shortness of breath, no lightheadedness or dizziness, no trauma. Related Data Home Medications ?Medication ?Instructions ?Recorded ?Confirmed albuterol sulfate 90 mcg/actuation 1 - 2 puff inhalation Q4H PRN 12/31/22 12/09/23 aerosol inhaler atorvastatin 40 mg tablet 40 mg PO DAILY 12/31/22 12/09/23 calcium citrate 250 mg PO BID 12/31/22 12/09/23 cetirizine 10 mg tablet 10 mg PO DAILY 12/31/22 12/09/23 gabapentin 100 mg capsule 200 mg PO BID 12/31/22 12/09/23 lorazepam 1 mg tablet 0.5 mg PO BID 12/31/22 12/09/23 meclizine 25 mg tablet 25 mg PO TID PRN 12/31/22 12/09/23 melatonin 5 mg capsule 5 mg PO HS 12/31/22 12/09/23 omeprazole 20 mg capsule,delayed 20 mg PO DAILY 12/31/22 12/09/23 release oxybutynin chloride 5 mg 5 mg PO DAILY 12/31/22 12/09/23 tablet,extended release 24 hr semaglutide 2 mg/dose (8 mg/3 mL) 2 mg subcut QWEEK 12/31/22 12/09/23 subcutaneous pen injector (Ozempic) sennosides 8.6 mg tablet (senna) 17.2 mg PO DAILY 12/31/22 12/09/23 tamsulosin 0.4 mg capsule 0.4 mg PO DAILY 12/31/22 12/09/23 venlafaxine 75 mg capsule,extended 75 mg PO DAILY 12/31/22 12/09/23 release 24 hr warfarin 5 mg tablet 2.5 - 5 mg PO DAILY 12/31/22 12/09/23 acetaminophen 12/09/23 metoprolol succinate 25 mg 25 mg PO DAILY 12/09/23 12/09/23 tablet,extended release 24 hr mometasone-formoterol HFA 100 2 puff inhalation BID 12/09/23 12/09/23 mcg-5 mcg/actuation aerosol inhaler (Dulera) Allergies Allergy/AdvReac Type Severity Reaction Status Date / Time ibuprofen Allergy Intermediate Hives Verified 06/14/24 18:47 phenytoin Allergy Mild Rash Verified 06/14/24 18:47 buspirone (From BuSpar) AdvReac Intermediate Blurry Verified 06/14/24 18:47 Vision citalopram AdvReac Intermediate Dizziness Verified 06/14/24 18:47 lisinopril AdvReac Intermediate Verified 01/04/24 10:33 metformin AdvReac Intermediate Diarrhea Verified 06/14/24 18:47 [facility] Medical History (Updated 06/14/24 @ 19:13 by Rosalio Sullivan MD) Hypertension ?I10 - Essential (primary) hypertension (ICD-10) Atrial fibrillation ?I48.91 - Unspecified atrial fibrillation (ICD-10) Social History Smoking Status: Former smoker What tobacco products do you use: cigarettes Years smoked: 37 Smoking quit date/years: >15 years ago Do you use any of these nicotine containing products: None Second hand tobacco smoke exposure: No How often do you have a drink containing alcohol: never How often do you have six or more drinks on one occasion: Never AUDIT-C Alcohol total score: 0 Non-prescribed substance use: denies use service: No Exam Narrative: Exam Narrative: General: well nourished , NAD Head: Atraumatic and normocephalic ENT: Blood clot in the right ear with trace trickle of blood inferiorly. Eyes: Conjunctiva clear, pupils are equal reactive, external ocular motions are intact Neck: Full spontaneous range of motion of the neck Lungs: No respiratory distress Musculoskeletal: No tenderness or deformity Neurologic: No gross focal neurologic deficits Skin: No rashes Psych: Mood and affect are appropriate Const: Vital Signs, click to edit/add: Vital Signs - 24 hr 06/14/24 18:43 Temperature 98.2 F Pulse Rate [Right Pulse Oximeter] 86 Respiratory Rate 16 Blood Pressure [Ri ght Upper Arm] 142/77 H Pulse Oximetry 98 Oxygen Delivery Me thod Room Air Course Course ED Course: Patient seen examined, presents today with postprocedure bleeding in the right ear, patient is anticoagulated. Patient initially examined in the hallway, clot in the right ear with small to couple blood coming from beneath this. Discussed plan to clean the clot off, likely injection of lidocaine with epinephrine and chemical cauterization. Did consider labs the patient's vital is stable, mild bleeding and acute blood loss anemia unlikely, patient had INR done yesterday and is falling over this primary care doctor tomorrow for continued coagulation monitoring. Reevaluation(s) Time of Reevaluation #1: 19:10 Reevaluation #1: Hemostasis control for postoperative bleeding, right ear. Active slow bleed from the right helix. Area was clean and clot was cleared with wound cleanser and gauze. Cotton-tipped applicator he used to further clear clot. Wound bed was exposed and there is active bleeding on the lateral edge of the surgical wound of the helix. Lidocaine with epinephrine was injected, 1 mL total. This resulted in hemostasis. The entire wound bed was cauterized with silver nitrate. No active bleeding and patient remains stable. Tolerated procedure well. Vital Signs Vital signs: Initial Vital Signs Temperature 98.2 F 06/14/24 18:43 Temperature Source Temporal Artery Scan 06/14/24 18:43 Pulse Rate 86 06/14/24 18:43 Pulse Rhythm Regular 06/14/24 18:43 Pulse Strength 3+ Normal 06/14/24 18:43 Respiratory Rate 16 06/14/24 18:43 Blood Pressure 142/77 H 06/14/24 18:43 Blood Pressure Mean 98 06/14/24 18:43 Blood Pressure Position Sitting 06/14/24 18:43 Pulse Oximetry 98 18 18:43 Oxygen Delivery Method Room Air 06/14/24 18:43 Vital Signs Temperature 98.2 F 06/14/24 18:43 Pulse Rate 86 18 18:43 Respiratory Rate 16 06/14/24 18:43 Blood Pressure 142/77 H 06/14/24 18:43 Pulse Oximetry 98 06/14/24 18:43 Oxygen Delivery Method Room Air 06/14/24 18:43 Temperature 98.2 F 06/14/24 18:43 Pulse Rate 86 06/14/24 18:43 Respiratory Rate 16 06/14/24 18:43 Blood Pressure 142/77 H 06/14/24 18:43 Pulse Oximetry 98 06/14/24 18:43 Oxygen Delivery Method Room Air 06/14/24 18:43 Medications Administered Medications: Generic Name Dose Route Start Last Admin Trade Name Trupti PRN Reason Stop Dose Admin Lidocaine/Epinephrine 20 ml 06/14/24 18:49 06/14/24 18:57 Lidocaine 1%-Epi 1:100,000 INFILTRATI 06/14/24 18:50 20 ml ONCE ONE Administration Discharge Plan Discharge Clinical Impression: Hemorrhage postprocedure, Anticoagulated on Coumadin Patient Disposition: Home, Self-Care Condition: Stable Additional Instructions: Keep dressing in place until tomorrow. You may remove it tomorrow and allow water to run into the area but do not scrub or submerge. Activity Level: No Restrictions Discharge Diet: Regular Prescriptions: No Action oxybutynin chloride 5 mg tablet extended release 24hr 5 mg PO DAILY omeprazole 20 mg capsule,delayed release(DR/EC) 20 mg PO DAILY Ozempic 2 mg/dose (8 mg/3 mL) pen injector 2 mg subcut QWEEK melatonin 5 mg capsule 5 mg PO HS venlafaxine 75 mg capsule,extended release 24hr 75 mg PO DAILY warfarin 5 mg tablet 2.5 - 5 mg PO DAILY Rx Instructions: Take 5mg Mon, Fri, 2.5mg all other days. tamsulosin 0.4 mg capsule 0.4 mg PO DAILY sennosides [senna] 8.6 mg tablet 17.2 mg PO DAILY cetirizine 10 mg tablet 10 mg PO DAILY albuterol sulfate 90 mcg/actuation HFA aerosol inhaler 1 - 2 puff INHALATION Q4H PRN calcium citrate 250 mg calcium tablet 250 mg PO BID atorvastatin 40 mg tablet 40 mg PO DAILY meclizine 25 mg tablet 25 mg PO TID PRN lorazepam 1 mg tablet 0.5 mg PO BID gabapentin 100 mg capsule 200 mg PO BID acetaminophen metoprolol succinate 25 mg tablet extended release 24 hr 25 mg PO DAILY Dulera 100-5 mcg/actuation HFA aerosol inhaler 2 puff inhalation BID Follow Up/Referrals: TETE MAC DO [Primary Care Provider] - Stand Alone Forms: [email or web address] Info Instructions
[2024-06-14] MEDS: LIDOCAINE 1%-EPI 1:100,000 20 ML INFILTRATI (18:57)
== END 2024-06-14 19:38 | disposition home or self-care (01) ==
LOC: ED 19:31
PROVIDERS: Emergency Provider Family Medicine; PCP Student in an Organized Health Care Education/Training Program
DX: L76.21 Postprocedural hemorrhage of skin and subcutaneous tissue following a dermatologic procedure (principal); Z79.01 Long term (current) use of anticoagulants
CPT/HCPCS: 99282; 99283

== ENCOUNTER 2024-06-16 09:24 | Emergency (ER) | payer MEDICARE, BC, SELFPAY ==
[2024-06-16 09:31] VITALS: BP 132/82; PULSE 79; RESP 16; TEMP 36.5; O2SAT 94; BMI 42.6
--- NOTE | 2024-06-16 09:33 | ED_ITS ---
HPI - Ear Problem General Time Seen by Provider: 09:33 Date Seen: 06/16/24 Chief complaint: Ear/Nose/Throat Problem Stated complaint: R ear bleeding Time Seen by Provider: 06/16/24 09:30 Source: patient, family, RN notes reviewed and old records reviewed Mode of arrival: ambulatory Limitations: no limitations History of Present Illness HPI Narrative: 78-year-old male on Coumadin who comes in today with bleeding from his right ear. Patient had a biopsy of this done on June 12, was seen in the emergency department that night with bleeding. Area was cauterized and bleeding was controlled. Patient returns today with bleeding and pain. Patient is on Coumadin and Lovenox, anticoagulated for atrial fibrillation and history of DVT, currently being bridged after having endoscopy performed June 09. Related Data Home Medications ?Medication ?Instructions ?Recorded ?Confirmed albuterol sulfate 90 mcg/actuation 1 - 2 puff inhalation Q4H PRN 12/31/22 12/09/23 aerosol inhaler atorvastatin 40 mg tablet 40 mg PO DAILY 12/31/22 12/09/23 calcium citrate 250 mg PO BID 12/31/22 12/09/23 cetirizine 10 mg tablet 10 mg PO DAILY 12/31/22 12/09/23 gabapentin 100 mg capsule 200 mg PO BID 12/31/22 12/09/23 lorazepam 1 mg tablet 0.5 mg PO BID 12/31/22 12/09/23 meclizine 25 mg tablet 25 mg PO TID PRN 12/31/22 12/09/23 melatonin 5 mg capsule 5 mg PO HS 12/31/22 12/09/23 omeprazole 20 mg capsule,delayed 20 mg PO DAILY 12/31/22 12/09/23 release oxybutynin chloride 5 mg 5 mg PO DAILY 12/31/22 12/09/23 tablet,extended release 24 hr semaglutide 2 mg/dose (8 mg/3 mL) 2 mg subcut QWEEK 12/31/22 12/09/23 subcutaneous pen injector (Ozempic) sennosides 8.6 mg tablet (senna) 17.2 mg PO DAILY 12/31/22 12/09/23 tamsulosin 0.4 mg capsule 0.4 mg PO DAILY 12/31/22 12/09/23 venlafaxine 75 mg capsule,extended 75 mg PO DAILY 12/31/22 12/09/23 release 24 hr warfarin 5 mg tablet 2.5 - 5 mg PO DAILY 12/31/22 12/09/23 acetaminophen 12/09/23 metoprolol succinate 25 mg 25 mg PO DAILY 12/09/23 12/09/23 tablet,extended release 24 hr mometasone-formoterol HFA 100 2 puff inhalation BID 12/09/23 12/09/23 mcg-5 mcg/actuation aerosol inhaler (Dulera) Previous Rx's ?Medication ?Instructions ?Recorded ciprofloxacin HCl 500 mg tablet 500 mg PO BID #10 tabs 06/16/24 Allergies Allergy/AdvReac Type Severity Reaction Status Date / Time ibuprofen Allergy Intermediate Hives Verified 06/14/24 18:47 phenytoin Allergy Mild Rash Verified 06/14/24 18:47 buspirone (From BuSpar) AdvReac Intermediate Blurry Verified 06/14/24 18:47 Vision citalopram AdvReac Intermediate Dizziness Verified 06/14/24 18:47 lisinopril AdvReac Intermediate Verified 01/04/24 10:33 metformin AdvReac Intermediate Diarrhea Verified 06/14/24 18:47 [facility] Medical History (Updated 06/16/24 @ 11:22 by Rosalio Sullivan MD) Hypertension ?I10 - Essential (primary) hypertension (ICD-10) Atrial fibrillation ?I48.91 - Unspecified atrial fibrillation (ICD-10) Social History Smoking Status: Former smoker What tobacco products do you use: cigarettes Years smoked: 37 Smoking quit date/years: >15 years ago Do you use any of these nicotine containing products: None Second hand tobacco smoke exposure: No How often do you have a drink containing alcohol: never How often do you have six or more drinks on one occasion: Never AUDIT-C Alcohol total score: 0 Non-prescribed substance use: denies use service: No Exam Narrative: Exam Narrative: General: well nourished , NAD Head: Atraumatic and normocephalic ENT: External ears and external nose are normal Eyes: Conjunctiva clear, pupils are equal reactive, external ocular motions are intact Neck: Full spontaneous range of motion of the neck Lungs: No respiratory distress Musculoskeletal: No tenderness or deformity Neurologic: No gross focal neurologic deficits Skin: No rashes Psych: Mood and affect are appropriate Const: Vital Signs, click to edit/add: Vital Signs - 24 hr 06/16/24 09:31 Temperature 97.7 F Pulse Rate [Pulse Oximeter] 79 Respiratory Rate 16 Blood Pressure [Ri ght Upper Arm] 132/82 Pulse Oximetry 94 Oxygen Delivery Me thod Room Air Course Course ED Course: Patient seen examined. Returns with postoperative bleeding from biopsy of the right ear done 3 days ago. On exam here, dark blood in the ER with no active bleeding. Clot was removed and the area of the right conchal bowl and external auditory canal. Lidocaine 1% with epinephrine was injected into the area in further cleaning was done. The wound does look like there has been some interval healing since the last time I saw the patient 2 days ago. Will discuss further treatment with ENT as patient has had silver nitrate cautery both at time of original procedure as well as 2 days ago and still is having bleeding. Reevaluation(s) Time of Reevaluation #1: 10:33 Reevaluation #1: Further cleaning with wound cleanser and cotton-tipped applicator, wound base visualized with no active bleeding. Area was cauterized with silver nitrate. Patient tolerated this well. Care discussed with Dr. Jolley, ENT. No further recommendations at this time, agrees silver nitrate cautery but advises given concern for malignancy/basal cell carcinoma, and bleeding prior to procedure, patient may continue ongoing bleeding. Agrees that suture is unlikely to make much difference. Does recommend starting ciprofloxacin for possible cellulitis but says that the right ear was somewhat swollen and discolored prior to procedure as well. Time of Reevaluation #2: 11:14 Reevaluation #2: Labs and panel interpreted by me with INR 1.78. Patient recheck, no active bleeding but did further cauterize ulceration of the hari of the right ear. Patient tolerated this well. Spouse notes that patient has 3 doses of Lovenox left, message sent to primary team for refills if needed. Vital Signs Vital signs: Initial Vital Signs Temperature 97.7 F 06/16/24 09:31 Temperature Source Temporal Artery Scan 06/16/24 09:31 Pulse Rate 79 06/16/24 09:31 Pulse Rhythm Regular 06/16/24 09:31 Respiratory Rate 16 06/16/24 09:31 Blood Pressure 132/82 12/20/24 09:31 Blood Pressure Mean 98 06/16/24 09:31 Blood Pressure Position Sitting 06/16/24 09:31 Pulse Oximetry 94 06/16/24 09:31 Oxygen Delivery Method Room Air 06/16/24 09:31 Vital Signs Temperature 97.7 F 06/16/24 09:31 Pulse Rate 79 06/16/24 09:31 Respiratory Rate 16 06/16/24 09:31 Blood Pressure 132/82 06/16/24 09:31 Pulse Oximetry 94 06/16/24 09:31 Oxygen Delivery Method Room Air 06/16/24 09:31 Temperature 97.7 F 06/16/24 09:31 Pulse Rate 79 06/16/24 09:31 Respiratory Rate 16 06/16/24 09:31 Blood Pressure 132/82 06/16/24 09:31 Pulse Oximetry 94 06/16/24 09:31 Oxygen Delivery Method Room Air 06/16/24 09:31 Medications Administered Medications: Discontinued Medications Generic Name Dose Route Start Last Admin Trade Name Trupti PRN Reason Stop Dose Admin Lidocaine/Epinephrine 20 ml 06/16/24 09:49 06/16/24 10:07 Lidocaine 1%-Epi 1:100,000 INFILTRATI 06/16/24 09:50 20 ml ONCE ONE Administration Medical Decision Making Lab Data Labs: Lab Results 06/16/24 Range/Units 10:03 WBC 5.08 (4.50-11.00) K/uL RBC 3.64 L (4.30-5.90) m/uL Hgb 11.7 L (13.5-17.5) gm/dL Hct 36.3 L (37.0-53.0) % MCV 100 (80-100) fL MCH 32 (26-34) pg MCHC 32 (32-36) gm/dL RDW Coeff of Isela 13.8 (11.5-15.5) % Plt Count 174 (140-440) K/uL Neut % (Auto) 53.9 (42.0-72.0) % Lymph % (Auto) 26.0 (20-44) % Desha % (Auto) 17.7 H (0.0-11.0) % Eos % (Auto) 1.8 (0.0-7.0) % Baso % (Auto) 0.4 (0.0-3.0) % Neut # (Auto) 2.74 (1.7-7.0) K/uL Lymph # (Auto) 1.32 (0.90-2.90) K/uL Desha # (Auto) 0.90 (0.00-0.90) K/UL Eos # (Auto) 0.09 (0.00-0.50) K/uL Baso # (Auto) 0.02 (0.00-0.30) K/uL Abs Immat Gran (auto) 0.01 (0.00-0.30) K/uL Imm/Tot Granulo (auto) 0.2 % INR 1.78 H (0.91-1.10) Sodium 138 (135-149) mmol/L Potassium 4.1 (3.6-5.1) mmol/L Chloride 104 (96-114) mmol/L Carbon Dioxide 29 (20-32) mmol/L Anion Gap 5 L (7-15) mEq/L BUN 10 (7-30) mg/dL Creatinine 0.8 (0.5-1.5) mg/dL Estimated Creat Clear 59.85 Estimated GFR 91 ml/min Glucose 148 H (60-115) mg/dL Calcium 8.8 (8.4-10.6) mg/dL Discharge Plan Discharge Clinical Impression: Hemorrhage postprocedure, Anticoagulated on Coumadin Patient Disposition: Home, Self-Care Condition: Stable Instructions: Blood Thinners (ED) Additional Instructions: You may gently removed blood from the ear canal with warm water and washcloth. Try not to disturb the area of cautery or any clot on the edge of the ear itself. You will likely continue to have some slow oozing from this area. Apply gauze and pressure. Call your primary care clinic to discuss continue anticoagulation. Your INR today is 1.78, platelets 174, creatinine 0.8. Activity Level: Activity as Tolerated Prescriptions: New ciprofloxacin HCl 500 mg tablet 500 mg PO BID Qty: 10 0RF No Action oxybutynin chloride 5 mg tablet extended release 24hr 5 mg PO DAILY omeprazole 20 mg capsule,delayed release(DR/EC) 20 mg PO DAILY Ozempic 2 mg/dose (8 mg/3 mL) pen injector 2 mg subcut QWEEK melatonin 5 mg capsule 5 mg PO HS venlafaxine 75 mg capsule,extended release 24hr 75 mg PO DAILY warfarin 5 mg tablet 2.5 - 5 mg PO DAILY Rx Instructions: Take 5mg Mon, Fri, 2.5mg all other days. tamsulosin 0.4 mg capsule 0.4 mg PO DAILY sennosides [senna] 8.6 mg tablet 17.2 mg PO DAILY cetirizine 10 mg tablet 10 mg PO DAILY albuterol sulfate 90 mcg/actuation HFA aerosol inhaler 1 - 2 puff INHALATION Q4H PRN calcium citrate 250 mg calcium tablet 250 mg PO BID atorvastatin 40 mg tablet 40 mg PO DAILY meclizine 25 mg tablet 25 mg PO TID PRN lorazepam 1 mg tablet 0.5 mg PO BID gabapentin 100 mg capsule 200 mg PO BID acetaminophen metoprolol succinate 25 mg tablet extended release 24 hr 25 mg PO DAILY Dulera 100-5 mcg/actuation HFA aerosol inhaler 2 puff inhalation BID Follow Up/Referrals: TETE MAC DO [Primary Care Provider] - Stand Alone Forms: [facility] Info Instructions
[2024-06-16] MEDS: LIDOCAINE 1%-EPI 1:100,000 20 ML INFILTRATI (10:07)
[2024-06-16 10:15] LABS: Basophils Absolute Auto 0.02 K/uL (0.00-0.30); Basophils Percent Auto 0.4 % (0.0-3.0); Eosinophils Absolute Auto 0.09 K/uL (0.00-0.50); Eosinophils Percent Auto 1.8 % (0.0-7.0); Hematocrit 36.3 % (37.0-53.0); Hemoglobin* 11.7 gm/dL (13.5-17.5); Immature Granulocytes Abs Auto 0.01 K/uL (0.00-0.30); Immature Granulocytes Pct Auto 0.2 %; Lymphocytes Absolute Auto 1.32 K/uL (0.90-2.90); Mean Corpuscular HGB Conc 32 gm/dL (32-36); Mean Corpuscular Hemoglobin 32 pg (26-34); Mean Corpuscular Volume 100 fL (80-100); Monocytes Percent Auto 17.7 % (0.0-11.0); Neutrophils Absolute Auto 2.74 K/uL (1.7-7.0); Neutrophils Percent Auto 53.9 % (42.0-72.0); Platelet Count* 174 K/uL (140-440); RDW Coefficient of Variation % 13.8 % (11.5-15.5); Red Blood Count 3.64 m/uL (4.30-5.90); White Blood Count* 5.08 K/uL (4.50-11.00)
[2024-06-16 10:20] LABS: Slide Review Reflex No
[2024-06-16 10:30] LABS: Chloride* 104 mmol/L (96-114); Potassium* 4.1 mmol/L (3.6-5.1); Sodium* 138 mmol/L (135-149)
[2024-06-16 10:33] LABS: Anion Gap 5 mEq/L (7-15); Blood Urea Nitrogen* 10 mg/dL (7-30); Carbon Dioxide* 29 mmol/L (20-32); Creatinine* 0.8 mg/dL (0.5-1.5); Est. Creatinine Clearance* 59.85; Estimated Glomerular Filt Rate 91 ml/min; Glucose* 148 mg/dL (60-115)
[2024-06-16 10:34] LABS: Calcium* 8.8 mg/dL (8.4-10.6); INR 1.78 (0.91-1.10); Prothrombin Time 21.9 Seconds
[2024-06-16 11:45] VITALS: BP 132/82; PULSE 79; RESP 16; TEMP 36.5
== END 2024-06-16 11:45 | disposition home or self-care (01) ==
PROVIDERS: Emergency Provider Family Medicine; PCP Student in an Organized Health Care Education/Training Program
DX: L76.21 Postprocedural hemorrhage of skin and subcutaneous tissue following a dermatologic procedure (principal); Z79.01 Long term (current) use of anticoagulants
CPT/HCPCS: 17250; 36415; 80048; 85025; 85610; 99282; 99284

== ENCOUNTER 2024-06-17 19:26 | Emergency (ER) | payer MEDICARE, BC, SELFPAY ==
[2024-06-17 19:32] VITALS: BP 149/78; PULSE 81; RESP 20; TEMP 36.4; O2SAT 95; BMI 44.1
--- NOTE | 2024-06-17 19:41 | ED_ITS ---
HPI - Ear Problem General Time Seen by Provider: 19:41 Date Seen: 06/17/24 Chief complaint: Ear/Nose/Throat Problem Stated complaint: Ear injury (bleeding) Time Seen by Provider: 06/17/24 19:38 Source: patient, family, RN notes reviewed and old records reviewed (Have reviewed Dr. Sullivan's past two ED notes) Mode of arrival: ambulatory Limitations: no limitations History of Present Illness HPI Narrative: This 78-year-old male returns with his with recurrent bleeding this evening. His ear just started dripping. He is bridged with Lovenox with underlying use of Coumadin. He had an ear biopsy by ENT on Wednesday the . Was in the ER here on the and yesterday the for bleeding. Patient's hemoglobin was stable yesterday, INR was subtherapeutic. He is still on his Lovenox, his primary care team in clinic are following his anticoagulation. His ears quite painful, he does have 1 Tylenol No. 3 left over at home, had not taken any today. He was also placed on antibiotics for concern of secondary infection yesterday. There is concerned that this is a cancer in the ear. He has had silver nitrate cautery multiple times done now, 3 times by review of notes here to be exact. His ENT was called yesterday, there is nothing to suture. Related Data Home Medications ?Medication ?Instructions ?Recorded ?Confirmed albuterol sulfate 90 mcg/actuation 1 - 2 puff inhalation Q4H PRN 12/31/22 12/09/23 aerosol inhaler atorvastatin 40 mg tablet 40 mg PO DAILY 12/31/22 12/09/23 calcium citrate 250 mg PO BID 12/31/22 12/09/23 cetirizine 10 mg tablet 10 mg PO DAILY 12/31/22 12/09/23 gabapentin 100 mg capsule 200 mg PO BID 12/31/22 12/09/23 lorazepam 1 mg tablet 0.5 mg PO BID 12/31/22 12/09/23 meclizine 25 mg tablet 25 mg PO TID PRN 12/31/22 12/09/23 melatonin 5 mg capsule 5 mg PO HS 12/31/22 12/09/23 omeprazole 20 mg capsule,delayed 20 mg PO DAILY 12/31/22 12/09/23 release oxybutynin chloride 5 mg 5 mg PO DAILY 12/31/22 12/09/23 tablet,extended release 24 hr semaglutide 2 mg/dose (8 mg/3 mL) 2 mg subcut QWEEK 12/31/22 12/09/23 subcutaneous pen injector (Ozempic) sennosides 8.6 mg tablet (senna) 17.2 mg PO DAILY 12/31/22 12/09/23 tamsulosin 0.4 mg capsule 0.4 mg PO DAILY 12/31/22 12/09/23 venlafaxine 75 mg capsule,extended 75 mg PO DAILY 12/31/22 12/09/23 release 24 hr warfarin 5 mg tablet 2.5 - 5 mg PO DAILY 12/31/22 12/09/23 acetaminophen 12/09/23 metoprolol succinate 25 mg 25 mg PO DAILY 12/09/23 12/09/23 tablet,extended release 24 hr mometasone-formoterol HFA 100 2 puff inhalation BID 12/09/23 12/09/23 mcg-5 mcg/actuation aerosol inhaler (Dulera) Previous Rx's ?Medication ?Instructions ?Recorded ciprofloxacin HCl 500 mg tablet 500 mg PO BID #10 tabs 06/16/24 Allergies Allergy/AdvReac Type Severity Reaction Status Date / Time ibuprofen Allergy Intermediate Hives Verified 06/14/24 18:47 phenytoin Allergy Mild Rash Verified 06/14/24 18:47 buspirone (From BuSpar) AdvReac Intermediate Blurry Verified 06/14/24 18:47 Vision citalopram AdvReac Intermediate Dizziness Verified 06/14/24 18:47 lisinopril AdvReac Intermediate Verified 01/04/24 10:33 metformin AdvReac Intermediate Diarrhea Verified 06/14/24 18:47 Review of Systems Narrative: As per HPI. PFS PFS Medical History Hypertension ?I10 - Essential (primary) hypertension (ICD-10) Atrial fibrillation ?I48.91 - Unspecified atrial fibrillation (ICD-10) Social History Smoking Status: Former smoker What tobacco products do you use: cigarettes Years smoked: 37 Smoking quit date/years: >15 years ago Do you use any of these nicotine containing products: None Second hand tobacco smoke exposure: No How often do you have a drink containing alcohol: never How often do you have six or more drinks on one occasion: Never AUDIT-C Alcohol total score: 0 Non-prescribed substance use: denies use service: No Exam Const: Vital Signs, click to edit/add: Vital Signs - 24 hr 06/17/24 19:32 Temperature 97.6 F Pulse Rate [Right Pulse Oximeter] 81 Respiratory Rate 20 Blood Pressure [Ri ght Upper Arm] 149/78 H Pulse Oximetry 95 Oxygen Delivery Me thod Room Air This 78-year-old male is alert, interactive, no apparent distress. He has bandage wrapped around his head. This is removed, has dark bloody bandages overlying the right ear, these were removed, patient complained of significant pain when I did this. He has a circular fleshy appearing lesion along the outer right ear, blood in the hari bowl. The blood was coagulated and was removed by Q-tips in the hari bowl so this would not affect ear canal. He had ongoing dark oozing generally from the tissue of this biopsy. There is some mild generalized swelling, patient is exquisitely tender and responsive to pain, seems to have a over reactive response to pain. He certainly is pleasant but is not very tolerant to touching the ear at all. The ear is not copiously bleeding but does continue to ooze. I have discussed with them that I do not think continuing to use silver nitrate multiple times is good for tissue healing. I think at some point we need to go to pressure dressings, try to let this heal up and not continue to irritate with the silver nitrate. Did discuss with them that although this can anticoagulate, it is harsh on tissues, can inhibit wound healing. Did get Gelfoam and held that with light pressure which patient minimally tolerated, that seem to stick to the wound base. Put a pressure dressing over this. Will observe to ensure no bleeding through this. Documenting provider has reviewed patient's vital signs: yes Course Reevaluation(s) Time of Reevaluation #1: 20:28 Reevaluation #1: With no further bleeding. Patient was given Tylenol with codeine here for some pain management. His did observe the bandaging process, knows to leave the underlying Gelfoam on/in place. Patient in I with his present did discuss constipation from narcotics. He states he actually had looser stools today and would welcome some of these affects from the Tylenol 3. Vital Signs Vital signs: Initial Vital Signs Temperature 97.6 F 06/17/24 19:32 Temperature Source Temporal Artery Scan 06/17/24 19:32 Pulse Rate 81 06/17/24 19:32 Pulse Rhythm Regular 06/17/24 19:32 Respiratory Rate 20 06/17/24 19:32 Blood Pressure 149/78 H 06/17/24 19:32 Blood Pressure Mean 101 06/17/24 19:32 Blood Pressure Position Sitting 06/17/24 19:32 Pulse Oximetry 95 06/17/24 19:32 Oxygen Delivery Method Room Air 06/17/24 19:32 Vital Signs Temperature 97.6 F 06/17/24 19:32 Pulse Rate 81 06/17/24 19:32 Respiratory Rate 20 06/17/24 19:32 Blood Pressure 149/78 H 06/17/24 19:32 Pulse Oximetry 95 06/17/24 19:32 Oxygen Delivery Method Room Air 06/17/24 19:32 Temperature 97.6 F 06/17/24 19:32 Pulse Rate 81 06/17/24 19:32 Respiratory Rate 20 06/17/24 19:32 Blood Pressure 149/78 H 06/17/24 19:32 Pulse Oximetry 95 06/17/24 19:32 Oxygen Delivery Method Room Air 06/17/24 19:32 Medications Administered Medications: Generic Name Dose Route Start Last Admin Trade Name Freq PRN Reason Stop Dose Admin Acetaminophen/Codeine Phosphate 1 tab 06/17/24 20:00 06/17/24 20:10 Acetaminophen/Codeine 300 Mg/30 Mg Tablet PO 06/17/24 20:01 1 tab ONCE ONE Administration Discharge Plan Discharge Clinical Impression: Bleeding from wound, Anticoagulated on Coumadin Patient Disposition: Home, Self-Care Condition: Stable Additional Instructions: Try to leave current pressure dressing in place for 48 hours. After that, can her replace the gauze and the wrap around the head every couple of days for about the next week. Hopefully, this will be enough time for this wound to have healed in. Do not pull the Gelfoam off. This will fall off in time on its own. If you see the ENT or are seen in follow-up by anyone in this time frame, let them know that there is Gelfoam adherent to the wound. If this is pulled off, will likely pull underlying superficial clotted tissue off and bleeding will start again. If needed, the Gelfoam can be soaked off with water and wet compresses. If you do not have an appointment with anyone, do recommend a clinic follow-up within the next week for recheck. Activity Level: Activity as Tolerated Prescriptions: No Action oxybutynin chloride 5 mg tablet extended release 24hr 5 mg PO DAILY omeprazole 20 mg capsule,delayed release(DR/EC) 20 mg PO DAILY Ozempic 2 mg/dose (8 mg/3 mL) pen injector 2 mg subcut QWEEK melatonin 5 mg capsule 5 mg PO HS venlafaxine 75 mg capsule,extended release 24hr 75 mg PO DAILY warfarin 5 mg tablet 2.5 - 5 mg PO DAILY Rx Instructions: Take 5mg Mon, Fri, 2.5mg all other days. tamsulosin 0.4 mg capsule 0.4 mg PO DAILY sennosides [senna] 8.6 mg tablet 17.2 mg PO DAILY cetirizine 10 mg tablet 10 mg PO DAILY albuterol sulfate 90 mcg/actuation HFA aerosol inhaler 1 - 2 puff INHALATION Q4H PRN calcium citrate 250 mg calcium tablet 250 mg PO BID atorvastatin 40 mg tablet 40 mg PO DAILY meclizine 25 mg tablet 25 mg PO TID PRN lorazepam 1 mg tablet 0.5 mg PO BID gabapentin 100 mg capsule 200 mg PO BID ciprofloxacin HCl 500 mg tablet 500 mg PO BID Qty: 10 0RF acetaminophen metoprolol succinate 25 mg tablet extended release 24 hr 25 mg PO DAILY Dulera 100-5 mcg/actuation HFA aerosol inhaler 2 puff inhalation BID Follow Up/Referrals: ETTE MAC DO [Primary Care Provider] - Stand Alone Forms: [employer] [facility] Info Instructions
== END 2024-06-17 20:35 | disposition home or self-care (01) ==
PROVIDERS: Emergency Provider Family Medicine; PCP Student in an Organized Health Care Education/Training Program
DX: L76.22 Postprocedural hemorrhage of skin and subcutaneous tissue following other procedure (principal); Z79.01 Long term (current) use of anticoagulants
CPT/HCPCS: 99283; A9270

== ENCOUNTER 2024-09-20 17:33 | Emergency (ER) | payer MEDICARE, BC, SELFPAY ==
[2024-09-20 17:35] VITALS: BP 130/74; PULSE 63; RESP 18; TEMP 36.9; O2SAT 94; BMI 42.6
--- OUTSIDE RECORDS SUMMARY | 2024-09-20 17:35 | XMS_ITS | Continuity of Care Document ---
Author Organization [facility] Address [address] [address] [place] [address] Phone Care Team Providers Care Senior Treasury Consultant Name Role Phone Yvon Hunt MD Unavailable Unavailable Allergies, Adverse Reactions, Alerts Substance Reaction Status Criticality phenytoin Rash Active No Information metformin Diarrhea Active No Information lisinopril Cough Active No Information citalopram DizzinessNausea Active No Informati on buspirone Blurring of visual imageDizziness Active No Information ibuprofen HivesHives Active No Information Medications Medication Instructions Dosage Effective Dates (start - stop) Status Comments Tylenol Extra Strength 500 mg tablet take 2 tablet by oral route every 4 - 6 hours as needed not to exceed 8 tablets per 24hrs 1000 MG - Active albuterol sulfate HFA 90 mcg/actuation aerosol inhaler inhale 2 puff by inhalation route every 4 - 6 hours as needed 180 MCG - Active Allergy Relief (cetirizine) 10 mg capsule take 1 capsule by oral route every day 1 capsule - Active atorvastatin 40 mg tablet take 1 tablet by oral route every day 40 MG - Active calcium citrate 250 mg tablet take 1 tablet by oral route 2 times every day 1 tablet - Active VITAMIN D3 (unknown strength) Not Available - Active Fish Oil 1,000 mg (120 mg-180 mg) capsule take 1 capsule by oral route every day 1 capsule - Active gabapentin 100 mg capsule take 3 capsule by oral route 2 times every day 300 MG - Active lorazepam 1 mg tablet take 0.5 tablet by oral route every morning and take 1 tablet by oral route every day at noon - Active magnesium citrate oral solution as needed - Active meclizine 25 mg tablet take 1 tablet by oral route 3 times every day as needed 25 MG - Active melatonin 5 mg tablet take 0.5 by Oral route every bedtime 0.5 - Active metoprolol succinate ER 25 mg tablet,extended release 24 hr take 1 tablet by oral route every day 25 MG - Active Dulera 100 mcg-5 mcg/actuation HFA aerosol inhaler inhale 2 puff by inhalation route 2 times every day in the morning and evening 2.00 puff - Active omeprazole 20 mg capsule,delayed release take 1 capsule by oral route every day 30 minutes to 1 hour before a meal 20 MG - Active oxybutynin chloride ER 10 mg tablet,extended release 24 hr take 1 tablet by oral route every day 10 MG - Active Ozempic 2 mg/dose (8 mg/3 mL) subcutaneous pen injector inject (2MG) by subcutaneous route every week on the same day of each week 2 MG - Active Miralax 17 gram/dose oral powder take 1/2 scoop by oral route every day - Active PreserVision AREDS-2 250 mg-90 mg-40 mg-1 mg capsule take 2 capsule by oral route every day 2 capsule - Active senna 8.6 mg tablet take 1 tablet by oral route every day as needed 8.6 MG - Active tamsulosin 0.4 mg capsule take 2 capsule by oral route every day 1/2 hour following the same meal each day 0.8 MG - Active venlafaxine ER 75 mg capsule,extended release 24 hr take 1 capsule by oral route every day with food 75 MG - Active Prilosec 20 mg Cap Take [...] UnknownINHALER as needed for congestion - Active Procedures Procedure Date Ugi Endo. w/EMR Offic/outpt E&m [facility] Ugi Endo; W/remov Tumor/les-sn Level Iv-surg Path Gross/micro Offic/outpt E&m [facility] 45 9 [id number] Advance Directives Directive Yes / No Effective Date File Name No Information Encounters Encounter Description Practice Location Reason(s) For Visit Diagnoses Date Provider Providers Copied on Encounter [facility], [address] [address], [place], [place], [id number], tel:[phone] [facility] No Information 4 Gilbert Sanz. [address] [facility], [address], [id number], [place]. tel:[phone] [facility], [address] [address], [place], [place], [id number], [place] tel:[phone] [facility] Duodenal adenoma 4 Gilbert Sanz. [address] [facility], [facility] [address], [place], [id number], [place]. tel:[phone] Referring Provider: Yvon Nichole, [address], [address]. tel:[phone] [facility], [address] [address], [place], [place], [id number], [place] tel:[phone] [facility] No Information 4 Gilbert Sanz. [address] [facility], [address], [id number], [place]. [phone] [facility], [address] [address], [place], [place], [address], [place] tel:[phone] [facility] Duodenal adenoma 4 Gilbert Sanz. [address] [facility], [address], [place], [place], [address], [place]. [phone] Offic/outpt E&m [facility], [address] [address], [place], [place], [address], [place] tel:[phone] [facility] GI Symptoms or Concerns (chief complaint) Adenoma of small intestine 4 Pascual Garcia. [address] [facility], [facility] [address], [place], [id number], [place]. tel:[phone] Referring Provider: Turner Moon, [address] [place] [address], [place], [address]. tel:[phone] [facility], [address] [address], [place], [place], [address], [place] tel:[phone] [facility] No Information 4 Zac Carrillo. [address] [facility], [facility] [address], [place], [place], [id number], [place]. tel:[phone] [facility], [address] [address], [place], [address], [place] tel:[phone] [facility] Polyp-intes/r ect/stom-unc BehHiatal HerniaBenign Neoplasm Sm BowelHiatal Hernia 9 Zac Gilbert. [address] [facility], [facility] [address], [place], [address], [place]. tel:[phone] Offic/outpt E&m [facility] 45 [facility], [address] [address], [place], [place], [address], [place] tel:[phone] [facility] Duodenal Polyp (chief complaint) Gastroesophag eal RefluxPolyp-i ntes/rect/sto m-unc Beh 9 Shahram Burns. [address] [facility], [place] [address], [place], [place], [id number], [place]. tel:[phone] Family History Family Member Type Diagnosis Age [...] degree family history Problem (finding) Thyroid Disorder Immunizations Vaccine Date Status Comments SARS-COV-2 (COVID-19) vaccin e, mRNA, spike protein, LNP, preservative free, 50 mcg/0.5 mL dose administered Note: [facility] bi-direct ional interface ; Source: Other Registry Influenza, adjuvanted, inactivated, trivalent, injectable, preservative free administered Note: [facility] bi-directional interface ; Source: Other Registry Influenza, adjuvanted, inactivated, quadrivalent, injectable, preservative free administered Note: [facility] bi-directional interface ; Source: Other Registry SARS-COV-2 (COVID-19) vaccin e, mRNA, spike protein, LNP, preservative free, 50 mcg/0.5 mL dose administered Note: [facility] bi-direct ional interface ; Source: Other Registry SARS-COV-2 (COVID-19) vaccin e, mRNA, spike protein, LNP, bivalent, preservative free, 30 mcg/0.3 mL dose, sadiq-sucrose formulation administered Note: [facility] bi-direct ional interface ; Source: Other Registry Influenza, adjuvanted, inactivated, quadrivalent, injectable, preservative free administered Note: [facility] bi-directional interface ; Source: Other Registry SARS-COV-2 (COVID-19) vaccin e, mRNA, spike protein, LNP, bivalent, preservative free, 30 mcg/0.3 mL dose, sadiq-sucrose formulation administered Note: [facility] bi-direct ional interface ; Source: Other Registry SARS-COV-2 (COVID-19) vaccin e, mRNA, spike protein, LNP, preservative free, 100 mcg/0.5mL dose or 50 mcg/0.25mL dose administered Note: [facility] bi -directional interface ; Source: Other Registry Influenza, adjuvanted, inactivated, quadrivalent, injectable, preservative free administered Note: [facility] bi-directional interface ; Source: Other Registry SARS-COV-2 (COVID-19) vaccin e, mRNA, spike protein, LNP, preservative free, 100 mcg/0.5mL dose or 50 mcg/0.25mL dose administered Note: [facility] bi -directional interface ; Source: Other Registry SARS-COV-2 (COVID-19) vaccin e, mRNA, spike protein, LNP, preservative free, 100 mcg/0.5mL dose or 50 mcg/0.25mL dose administered Note: [facility] bi -directional interface ; Source: Other Registry Influenza, adjuvanted, inactivated, quadrivalent, injectable, preservative free administered Note: [facility] bi-directional interface ; Source: Other Registry Influenza, adjuvanted, inactivated, trivalent, injectable, preservative free administered Note: [facility] bi-directional interface ; Source: Other Registry tetanus toxoid, reduced diphtheria toxoid, and acellular pertussis vaccine, adsorbed administered Note: [facility] b i-directional interface ; Source: Other Registry Influenza, adjuvanted, inactivated, trivalent, injectable, preservative free administered Note: [facility] bi-directional interface ; Source: Other Registry zoster vaccine recombinant administered N ote: [facility] bi-directional interface ; Source: Other Registry zoster vaccine recombinant administered N ote: [facility] bi-directional interface ; Source: Other Registry Influenza, adjuvanted, inactivated, trivalent, injectable, preservative free administered Note: [facility] bi-directional interface ; Source: Other Registry Influenza, high-dose, split virus, trivalent, injectable, preservative free administered Note: [facility] bi-direct ional interface ; Source: Other Registry Influenza, high-dose, split virus, trivalent, injectable, preservative free administered Note: [facility] bi-direct ional interface ; Source: Other Registry Prevnar 13 administered Note: [facility] bi-d irectional interface ; Source: Other Registry Afluria Qd administered Note: [facility] bi-directional interface ; Source: Other Registry Pneumovax administered Note: [facility] bi-d irectional interface ; Source: Other Registry Influenza, split virus, trivalent, injectable, preservative free administered Note: [facility] bi-direct ional interface ; Source: Other Registry Influenza, split virus, trivalent, injectable, contains preservative administered Note: [facility] bi-direct ional interface ; Source: Other Registry tetanus toxoid, reduced diphtheria toxoid, and acellular pertussis vaccine, adsorbed administered Note: [facility] b i-directional interface ; Source: Other Registry Afluria Qd administered Note: [facility] bi-directional interface ; Source: Other Registry Novel [id number], all formulations administered Note: [facility] bi-direct ional interface ; Source: Other Registry Influenza, split virus, trivalent, injectable, contains preservative administered Note: [facility] bi-direct ional interface ; Source: Other Registry zoster vaccine, live administered Note: [facility] bi-directional interface ; Source: Other Registry Influenza, split virus, trivalent, injectable, contains preservative administered Note: [facility] bi-direct ional interface ; Source: Other Registry Pneumovax administered Note: [facility] bi-d irectional interface ; Source: Other Registry Payers Payer name Insurance type Covered constitution party ID Authoriza tion(s) Medicare NGS MB [id number] [facility] Medicare Supplement BL [id number] Social History Type Description Quantity Date Captured Comments Alcohol Use Details Unknown Caffeine Use Details Unknown Tobacco Use Status Smoking Status No Information Sex Male Chief Complaint And Reason For Visit No Information Reason For Referral Reason For Referral No Information Plan Of Treatment Date Type Action Status Referral Ordered: EGD With EMR Appointment date/timeframe: First Available ordered History Of Present Illness Encounter Date Complaint History Of Prese nt Illness GI Symptoms or Concerns This is a 78-year-old male with a past medical history of type 2 diabetes on Ozempic, paroxysmal atrial fibrillation with a history of ablation on warfarin, hypertension, BPH, obstructive sleep apnea on CPAP, BMI of 44 who comes presents to us for evaluation of 4 mm mucosal nodule that was biopsied shown to be a tubular adenoma. He is being sent to us for consultation of the tubular adenoma in the second portion of the duodenum by Dr. Turner Lora. Of note patient in 2008 underwent an upper endoscopy that showed a 10 mm duodenal polyp that was removed with hot snare and 2 clips were placed. Pathology showed tubulovillous adenoma. Recommendation was to proceed with repeat upper endoscopy in 3 years time but this was never done.Patient within the last week had EGD and colonoscopy done in the [facility] system that has been uploaded into patient's [facility] chart.Colonoscopy was done that showed a redundant colon and a 3 mm rectal polyp that was hyperplastic in nature as well as angiodysplasia.Patient underwent EGD that showed a 4 mm mucosal nodule in the duodenum. Papilla was not seen per the report. Biopsy of this nodule showed tubular adenoma. This was in the second portion of the duodenum.Otherwise patient is fairly asymptomatic though he does note some adverse effects from the Ozempic.Patient quit smoking 16 years ago and consumes alcohol less than once a year. No recreational drugs.No family history of small bowel cancer Functional Status Date Functional Assessmen t No Information Instructions Date Instruction Additional Infor [place] -- As we discussed y ou do have a small precancerous polyp in the small intestine-- This polyp has previously been removed in 2008-- For this polyp we will recommend you seeing one of our advanced endoscopist to have this removed-- You will have to hold the warfarin as you did for the last procedures and can transition to Lovenox-- Our scheduling team will also talk to you about holding Ozempic-- 2 days before the upper endoscopy I would recommend a full liquid diet and 1 day before the endoscopy completely clear liquid diet to ensure your stomach is completely empty before doing any endoscopic procedure-- Follow-up at next labs will be discussed after the time of your endoscopy Related to Adenoma of small intestine Assessments Type Assessment Date No Information Patient Care Teams Name Effective Dates (start - stop) Status Members No Information
--- OUTSIDE RECORDS SUMMARY | 2024-09-20 17:35 | XMS_ITS ---
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 - [id number]:21:11+00:00* No Health Concern Data Available - [id number]:21:11+00:00no Shanita Higuera - [id number]:21:11+00:00 * Summary Written by: Date Litzy Higuera September 14, 2024, 11:3 5 p.m. Litzy Higuera September 15, 2024, 1:01 p.m.
--- OUTSIDE RECORDS SUMMARY | 2024-09-20 17:35 | XMS_ITS | Clinical Summary ---
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 Phenytoin Rash Low 07/30/2010 Dilantin Medications WalkerIndications :Aftercare following left knee joint replacement surgery Walker with front wheels for home use. Needs 99 months 1 Each 023 Active CPAPIndications:O bstructive sleep apnea CPAP machine for home use 15 cmw, full face mask x1/3month with a full face cushion x1/mo 1 Each 023 Active meclizine (ANTIVERT) 25 mg tabletIndications :Dizziness Take 1 Tablet (25 mg) by mouth 3 times daily if needed for Vertigo. 30 Tablet 023 Active melatonin 5 mg tab tabletIndications :Insomnia, idiopathic Take 0.5 Tablets (2.5 mg) by mouth at bedtime. 90 Tablet 3 023 Active omeprazole (PRILOSEC) 20 mg Delayed-Release capsuleIndication s:Chronic GERD TAKE 1 CAPSULE BY MOUTH EVERY DAY BEFORE A MEAL 90 Capsule 3 024 Active albuterol HFA (PRO-AIR; VENTOLIN; PROVENTIL) 90 mcg/actuation inhalerIndication s:Chronic obstructive pulmonary disease, unspecified COPD type (HC) Inhale 1-2 Puffs by mouth every 4 hours if needed for Shortness Of Breath. 1 Each 024 Active Stool Softener-Stimulan t Laxat 8.6-50 mg tabletIndications :Constipation, acute TAKE 1 TABLET BY MOUTH ONCE DAILY NEEDED FOR CONSTIPATION 90 Tablet 3 024 Active Allergy Relief, cetirizine, 10 mg tabletIndications :Seasonal allergies TAKE ONE TABLET BY MOUTH EVERY DAY 90 Tablet 3 024 Active venlafaxine (EFFEXOR XR) 75 mg cp24 Extended-Release capsuleIndication s:Anxiety Take 1 Capsule (75 mg) by mouth once daily with a meal. 90 Capsule 1 024 Active atorvastatin (LIPITOR) 40 mg tabletIndications :Hyperlipidemia, unspecified hyperlipidemia type Take 1 Tablet (40 mg) by mouth at bedtime. 90 Tablet 3 024 Active CPAPIndications:O bstructive sleep apnea,Hypersomnol ence CPAP (E0601) machine for home use at pressure: 15 , Choice of mask (A7030 or A7034) w/full face cushion (A7031) x1/mo, nasal cushion (A7032) x2/mo, or nasal pillows (A7033) x 2/mo; Length of Need: 99 months; Frequency of use: Daily 024 Active semaglutide (Ozempic) 2 mg/dose (8 mg/3 mL) subcutaneous penIndications:Ty pe 2 diabetes mellitus without complication, without long-term current use of insulin (HC),Morbid obesity (HC) Inject 2 mg subcutaneous once weekly. 9 mL 3 024 Active nitroglycerin (NITROSTAT) 0.4 mg sublingual tabletIndications :Angina pectoris Place 1 Tablet (0.4 mg) under the tongue every 5 minutes if needed for Chest Pain. Up to 3 tablets in 15 minutes. 25 Tablet 3 024 Active acetaminophen SR (TYLENOL ARTHRITIS) 650 mg Extended-Release tablet Take 650 mg by mouth three times daily. Max acetaminophen dose: 4000mg in 24 hrs. Active warfarin (COUMADIN) 5 mg tabletIndications :Pulmonary embolism, bilateral (HC),Paroxysmal atrial fibrillation (HC),Anticoagulat ion monitoring, INR range 2-3,Acute embolism and thrombosis of deep vein of left lower extremity (HC) Take by mouth 2.5 mg (5 mg x 0.5) every Wed, Wed, Wed; 5 mg (5 mg x 1) all other days or as directed. 024 Active Breo Ellipta 200-25 mcg/dose inhalation powdererIndicatio ns:Chronic obstructive pulmonary disease, unspecified COPD type (HC) Inhale 1 Puff by mouth once daily. 180 Each 1 025 Active gabapentin (NEURONTIN) 100 mg capsuleIndication s:Peripheral sensory neuropathy Take 4 Capsules (400 mg) by mouth two times daily. 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 90 Tablet 3 025 Active pregabalin (LYRICA) 25 mg capsuleIndication s:Peripheral sensory neuropathy Take 1 Capsule (25 mg) by mouth two times daily. 180 Capsule 1 025 Active LORazepam 1 mg tabletIndications :Anxiety and depression TAKE 1/2 TABLET BY MOUTH EVERY MORNING AND TAKE ONE TABLET BY MOUTH EVERY DAY AT NOON 50 Tablet 025 Active oxybutynin XL (DITROPAN XL) 10 mg CR tabletIndications :OAB (overactive bladder) TAKE 1 TABLET BY MOUTH ONCE DAILY 90 Tablet 025 Active tirzepatide (MOUNJARO) 2.5 mg/0.5 mL penIndications:Ty pe 2 diabetes mellitus without complication, unspecified whether superintendent terminal insulin use (HC) Inject 2.5 mg subcutaneous once weekly. 2 mL 025 Active oxybutynin XL (DITROPAN XL) 10 mg CR tabletIndications :OAB (overactive bladder) Take 1 Tablet (10 mg) by mouth once daily. 90 Tablet 3 024 2024 Discontinued LORazepam 1 mg tabletIndications :Anxiety and depression TAKE 1/2 TABLET BY MOUTH EVERY MORNING AND TAKE ONE TABLET BY MOUTH EVERY DAY AT NOON 50 Tablet 025 2024 Discontinued Active Problems Problem Noted Date Diagnosed Date Type 2 diabetes mellitus wit h diabetic neuropathy, without long-term current use of insulin 07/24/2024 Skin cancer 06/27/2024 Overview (07/03/2024): 06/13/2024: RIGHT EAR, Basal cell carcinoma, nodular and infiltrative types, with squamous differentiation: Perineural invasion: Present. Margins: Positive, Dr. Navin Simms Mohs 07/03/24 Adenoma of small intestine 04/05/2024 Adenoma of [...] Encounters Date Type Department Care Team Description 09/13/2024 11:00 AM CDT Ancillary Procedure [address] [address] 09/13/2024 10:30 AM CDT Orders Only [address] [address] [facility] 09/13/[address] [address] Beni Wise DO Anticoagulation (OPA - Mounjaro & CBD gummies ) 09/13/2024 Anticoagulation (warfarin) [address] [address] 1, [facility] Anticoagulation 09/13/2024 Travel 09/01/[address] [address] Beni Wise DO Questions (Change Ozempic to Mounjaro) 09/01/[address] [address] Beni Wise DO Refill Request (oxybutynin XL (DITROPAN XL) 10 mg CR tablet/) 08/31/2024 10:00 AM VEST BUSHELER Office Visit [address] [address] Jacob Mcrae MD Musculoskeletal Problem (Follow up back pain ) 08/31/2024 Refill [facility] [address] [facility] [place] [address] Beni Wise DO Refill Request (Oxybutynin Xl) 08/31/2024 Travel 08/26/2024 Refill [facility] [address] [place] [address] Beni Wise DO Refill Request (Lorazepam) 08/23/2024 10:30 AM VEST BUSHELER Orders Only [facility] [address] [facility] [place] [address] Lab[facility] 08/23/2024 Anticoagulation (warfarin) [facility] [address] [facility] [place] [address] 1, [facility] Anticoagulation 08/23/2024 Travel 08/21/2024 Telephone [facility] [address] [facility] [place] [address] Jacob Mcrae MD Appointment Request (Appt. 08-23-24?) 08/15/2024 10:35 AM VEST BUSHELER Office Visit [facility] [address] [facility] [place] [address] Beni Wise DO Medicare ANNUAL (subsequent) Visit (78 year old ) 08/14/2024 1:45 PM VEST BUSHELER Office Visit [facility] [address] [facility] [address] [place] [address] Navin Simms MD Derm Problem (Follow up) 08/14/2024 Travel 08/11/2024 11:30 AM VEST BUSHELER Office Visit [facility] [address] [facility] [place] [address] [place] [address] Dawit Ortiz MD Follow Up (2 MONTH FOLLOW UP to Zio. /) 08/10/2024 Travel 08/06/2024 Travel 08/03/2024 11:00 AM VEST BUSHELER Office Visit [facility] [address] [place] [address] Davin Barreto DPM Toe Pain/problem (Toenail concerns) 08/03/2024 Travel 08/01/2024 Telephone [facility] [address] [facility] [address] [address] Dawit Ortiz MD Results (Heart Monitor ) 07/29/2024 Refill [facility] [address] [place] [address] Beni Wise DO Refill Request (Tamsulosin, Oxybutynin Xl) 07/28/2024 10:00 AM VEST BUSHELER Orders Only [facility] [address] [place] [address] Lab[facility] 07/28/2024 Anticoagulation (warfarin) [facility] [address] [place] [address] 1, [facility] Anticoagulation 07/28/2024 Travel 07/28/2024 Refill [facility] [address] [place] [address] Beni Wise DO Refill Request (Omeprazole) 07/27/2024 10:35 AM VEST BUSHELER E-Visit [facility] [address] [place] [address] Beni Wise DO eVisit for Cough 07/27/2024 Refill [facility] [address] [place] [address] Beni Wise DO Refill Request (Alternative Requested -- WIXELA 250-50 INHUB) 07/27/2024 Travel 07/24/2024 10:35 AM VEST BUSHELER Telemedicine [facility] [address] [place] [address] Beni Wise DO 07/21/2024 Refill [facility] [address] [place] [address] Beni Wise DO Refill Request (Lorazepam) 07/19/2024 Travel 07/17/2024 2:00 PM VEST BUSHELER Office Visit [facility] [address] [address] Navin Simms MD Derm Problem (2 week follow up s/p Mohs, left ear 07/03/2024) 07/17/2024 Travel 07/13/2024 Travel 07/03/2024 12:30 PM VEST BUSHELER Procedure Only [facility] [address] [address] Navin Simms MD Procedure 07/02/2024 Travel 07/01/2024 Anticoagulation (warfarin) [facility] [address] [place] [address] 1, [facility] Anticoagulation 06/30/2024 11:15 AM VEST BUSHELER Office Visit [facility] [address] [address] 06/30/2024 8:30 AM VEST BUSHELER Office Visit [facility] [address] [place] [address] Beni Wise, Follow Up (06/09/2024 ) 06/30/2024 Telephone [facility] [address] [place] [address] Beni Wise DO Medication Management (fluticasone propion-salmeteroL (Advair Diskus) 250-50 mcg/Dose diskus inhaler/) 06/29/2024 Travel 06/28/2024 Travel 06/27/2024 8:40 AM VEST BUSHELER Office Visit [facility] [address] [address] Zabrina Segal, Derm Problem 06/27/2024 Telephone [facility] [address] [address] Zabrina Segal, Appointment 06/27/2024 Travel 06/24/2024 Refill [facility] [address] [place] [address] Beni Wise DO Refill Request (Dulera) 06/23/2024 Refill [facility] [address] [place] [address] Beni Wise, DO Refill Request (Lorazepam) 06/23/2024 Telephone [facility] [address] [place] [address] Beni Wise, DO Refill Request (LORazepam 1 mg tablet) from Last 3 Months Immunizations Immunization Administration Dates Next Due AMB Influenza, IIV3 [...] Neg. [address]aternal Grandfather (Age 81) st ro Paternal Grandmother (Age 67) ca ncer Social History Tobacco Use Types Packs/Day Years Used Date Smoking Tobacco: Former Cigarettes 3 36 1 07/04/1967 - 05/04/2004 Smokeless Tobacco: Never Tobacco Cessation:Counseling Given: Yes Comments:quit 2003 Alcohol Use Standard Drinks/Week Comments Not Currently 1 (1 standard drink = 0.6 oz pur e alcohol) PHQ-2 Answer Date Recorded PHQ-2 TOTAL SCORE 0 08/15/2024 Social Connections Answer Date Recorded Do you [...] is your housing situation today? 1 01/10/2024 Utilities Answer Date Recorded Do you have trouble paying f or utilities (for example, heat, electricity, water, phone)? 1 01/10/2024 Sex and Gender Information Value Date Recorded Sex Assigned at Not on file Legal Sex Male 6:05 AM VEST BUSHELER Gender Identity Male 11/17/2023 4:46 PM CDT Sexual Orientation Straight 11/17/2023 4: 46 PM CDT Occupation Industry Job Start Date Job End Date Retired Not on file Not on file Not on file Obstetrics History Last Filed Vital Signs Vital Sign Reading Time Taken Comments Blood Pressure 129/71 08/31/2024 10:04 AM VEST BUSHELER Pulse 74 08/31/2024 10:04 AM VEST BUSHELER Temperature 36.6 C (97.8 F) 08/31/2024 10:04 AM VEST BUSHELER Respiratory Rate 16 06/13/2024 11:02 AM VEST BUSHELER Oxygen Saturation 94% 08/31/2024 10:04 AM VEST BUSHELER Inhaled Oxygen Concentration - - Weight 130.6 kg (288 lb) 08/15/2024 10:51 AM VEST BUSHELER Height 172.7 cm (5' 8) 08/15/2024 10:51 AM VEST BUSHELER Body Mass Index 43.79 08/15/2024 10:51 AM VEST BUSHELER Plan of Treatment Upcoming Encounters Date Type Department Care Team (Late st Contact Info) Description 09/21/2024 11:00 AM CDT Office Visit [facility] [address] [facility] [address] [place] [address] [place] [address] [facility] [address] [place] [address] 10/04/2024 1:00 PM CDT Telemedicine [facility] [address] [place] [address] Rg Johnson MD [address] [place] [address] 10/06/2024 10:45 AM CDT Office Visit [facility] [address] [place] [address] Lizandro Feng MD [address] [place] [address] 12/01/2024 10:00 AM CDT Office Visit [facility] [address] [place] [address] Jacob Mcrae MD [address] [place] [address] 01/01/2025 10:00 AM CDT Office Visit [facility] [address] [address] [place] [address] [place] [address] Health Maintenance Due Date Last Done Comments RSV vaccine for adults or (1 - 1-dose 75+ series) 2021 COVID-19 vaccine series ( season) 2024 04/05/2024, 07/12/2023, 11/11/2022, Additional history exists BMI (ht and wt on same day) for age 18+ 08/15/2025 08/15/2024, 08/11/2024, 06/06/2024, Additional history exists Depression screening for age 12+ 08/15/2025 08/15/2024, 06/16/2024, 08/20/2023, Additional history exists Medicare Wellness for age 65+ 08/16/2025, 08/16/2023, 08/06/2022, Additional history exists Low Dose CT (for lung CA) ag e 50-80 09/13/2025 09/13/2024, 05/06/2023 Tetanus booster 01/03/2029 01/03/2019, 07/2009, 07/02/1999 Pneumococcal series for age 50+ Completed 05/17/2014, 02/04/2012, 02/24/2005 Hepatitis C screening for ag e 18-79 Completed 12/12/2014 Zoster (shingles) series for age 50+ Completed 01/28/2018, 10/14/2017, 08/26/2007 Tdap Completed 01/03/2019, 11/27/2009 Influenza Vaccine Completed 04/05/2024, , 03/25/2022, Additional history exists Procedures Procedure Name Priority Date/Time Associated Diagnosis Comments CT CHEST SCREENING LOW DOSE WO CONTRAST Routine 09/13/2024 11:03 AM CDT Tobacco use Personal history of nicotine dependence INR,POCT Routine 09/13/2024 10:31 AM CDT Pulmonary embolism, bilateral (HC) Paroxysmal atrial fibrillation (HC) Anticoagulation monitoring, INR range 2-3 INR,POCT Routine 08/23/2024 10:33 AM VEST BUSHELER Pulmonary embolism, bilateral (HC) Paroxysmal atrial fibrillation (HC) Anticoagulation monitoring, INR range 2-3 HEMOGLOBIN A1C MONITORING (POCT) Routine 08/15/2024 11:31 AM VEST BUSHELER Type 2 diabetes mellitus without complication, without long-term current use of insulin (HC) LIPID PANEL W REFLEX MEASURED LDL Routine 08/15/2024 11:31 AM VEST BUSHELER Type 2 diabetes mellitus without complication, without long-term current use of insulin (HC) BASIC METABOLIC PANEL Routine 08/15/2024 11:31 AM VEST BUSHELER Primary hypertension INR,POCT Routine 07/28/2024 9:52 AM VEST BUSHELER Pulmonary embolism, bilateral (HC) Paroxysmal atrial fibrillation (HC) Anticoagulation monitoring, INR range 2-3 INR,POCT Routine 06/30/2024 9:27 AM VEST BUSHELER Pulmonary embolism, bilateral (HC) Paroxysmal atrial fibrillation (HC) Anticoagulation monitoring, INR range 2-3 EXTENDED HOLTER Routine 06/30/2024 Paroxysmal atrial fibrillation (HC) ANTI HCV Routine 12/12/2014 8:52 AM CDT Unspecified hereditary and idiopathic peripheral neuropathy Abnormality of gait Dizziness and giddiness from Last 3 Months or Most Recently Relevant to Health Maintenance Results * CT CHEST SCREENING LOW DOSE WO CONTRAST (09/13/2024 11:03 AM CDT) Anatomical Region Laterality Modality Computed Tomogra phy Impressions 09/13/2024 2:20 PM CDT Negative for lung cancer screening purposes. LUNG-RADS CATEGORY: 2: Benign. RADIOLOGIST RECOMMENDATION: Continue annual screening with low-dose CT chest in 12 months. Please note that all CT scans at this facility use dose modulation, iterative reconstruction and/or weight-based dosing when appropriate to reduce radiation dose to as low as reasonably achievable. Dictated by: Ike Palomares MD @09/13/2024 1:20:05 PM CRL/djw Narrative 09/13/2024 2:20 PM CDT For Patients: As a result of the Cures Act, medical imaging exams and procedure reports are released immediately into your electronic medical record. You may view this report before your referring provider. If you have questions, please contact your health care provider. CT CHEST SCREENING LOW-DOSE WITHOUT CONTRAST, 09/13/2024 INDICATION: Lung cancer screening. History of smoking. High risk patient with greater than 20 pack-year smoking history. TECHNIQUE: Low-dose lung cancer screening non-contrast CT chest. Dose reduction techniques were used. COMPARISON: 11/08/2023. FINDINGS: NODULES: Stable perifissural nodule left upper lung. Stable subpleural densities. LUNGS AND PLEURA: Emphysema. No infiltrate. No edema. MEDIASTINUM: No adenopathy. CORONARY ARTERY CALCIFICATION: Present. LIMITED UPPER ABDOMEN: Unremarkable. MUSCULOSKELETAL: Unchanged thoracic vertebral bodies. Annmariei Frandy DO CT Final Result * (ABNORMAL) INR - POCT [[id number]] - Standing Order (09/13/2024 10:31 AM CDT) Only the most recent of4 resultswithin the time period is included. INR 3.0(H) ratio [facility] Comment: INRs >2.9 may be falsely elevated in patients receiving either unfractionated Heparin or Low Molecular Weight Heparin. Follow up testing in a hospital laboratory may be helpful if clinically indicated. INR results of > or = 5.0 should be verified using the standard venipuncture procedure. Reference Range 0.9-1.1 Moderate-intensity Warfarin Therapy 2.0-3.0 Higher-intensity Warfarin Therapy 3.0-4.0 PROTHROMBIN TIMEP 35.4(H) 10.5 - 13.1 sec [facility] Comment: Point of care fingerstick Prothrombin Time/INR results may vary from venous Prothrombin Time/INR methodologies. Any results exhibiting inconsistency with the patient's clinical status should be repeated using a venous Prothrombin Time/INR method. Blood BLOOD SPECIMEN / Unknown 09/13/2024 10:31 AM CDT 09/13/2024 10:32 AM CDT Beni Wise DO LABORATORY Final Result [facility] [address] [place] [address], [facility] [address] [place] [address] * (ABNORMAL) LIPID PANEL W REFLEX MEASURED LDL (08/15/2024 11:31 AM VEST BUSHELER) [facility] Signature CHOLESTEROL, TOTAL 163 <200 mg/dL [facility] HDL CHOLESTEROL 42 > OR = 40 mg/dL [facility] TRIGLYCERIDES 204(H) <150 mg/dL [facility] Comment: If a non-fasting specimen was collected, consider repeat triglyceride testing on a fasting specimen if clinically indicated. Afshan et al. J. of Clin. Lipidol. 2015;9:129-169. LDL-CHOLESTEROL 91 mg/dL (calc) [facility] Comment: Reference range: <100 Desirable range <100 mg/dL for primary prevention; <70 mg/dL for patients with CHD or diabetic patients with > or = 2 CHD risk factors. LDL-C is now calculated using the Thomas calculation, which is a validated novel method providing better accuracy than the Friedewald equation in the estimation of LDL-C. Turner MELVIN et al. KURT. 2013;310(19): 6486-4219 (http://education.Genomic Vision/faq/KHC049) CHOL/HDLC RATIO 3.9 <5.0 (calc) [facility] NON HDL CHOLESTEROL 121 <130 mg/dL (calc) [facility] Comment: For patients with diabetes plus 1 major ASCVD risk factor, treating to a non-HDL-C goal of <100 mg/dL (LDL-C of <70 mg/dL) is considered a therapeutic option. Blood BLOOD SPECIMEN / Unknown 08/15/2024 11:31 AM VEST BUSHELER 08/15/2024 11:31 AM VEST BUSHELER [employer] CHEMISTRY Final Result Performing Organization Address City/[facility] Co de Phone Number [facility] [address] [place] [address], [facility] [address] [place] [address] * (ABNORMAL) POCT Hemoglobin A1C Monitoring (08/15/2024 11:31 AM VEST BUSHELER) Pathologist [facility] POC HEMOGLOBIN A1C 6.3(H) <6.0 % OF TOTAL HGB [facility] Comment: Any point of care results exhibiting inconsistency with the patient's clinical status should be repeated using a different testing method. Blood BLOOD SPECIMEN / Unknown 08/15/2024 11:31 AM VEST BUSHELER 08/15/2024 11:32 AM VEST BUSHELER Beni Blountludwin CHEMISTRY Final Result [facility] [address] [place] [address], [place] [phone] [facility] [address] [place] [address] * BASIC METABOLIC PANEL (08/15/2024 11:31 AM VEST BUSHELER) Pathologist [facility] GLUCOSE 73 65 - 99 mg/dL [facility] Comment: Fasting reference interval UREA NITROGEN (BUN) 15 7 - 25 mg/dL [facility] CREATININE 0.89 0.70 - 1.28 mg/dL [facility] EGFR 88 > OR = 60 mL/min/1. 73m2 [facility] BUN/CREATININE RATIO SEE NOTE: 6 - 22 (calc) [facility] Comment: Not Reported: BUN and Creatinine are within reference range. SODIUM 139 135 - 146 mmol/L [facility] POTASSIUM 4.4 3.5 - 5.3 mmol/L [facility] CHLORIDE 104 98 - 110 mmol/L [facility] CARBON DIOXIDE 26 20 - 32 mmol/L [facility] ELECTROLYTE BALANCE 9 7 - 17 mmol/L (calc) [facility] CALCIUM 9.1 8.6 - 10.3 mg/dL [facility] Blood BLOOD SPECIMEN / Unknown 08/15/2024 11:31 AM VEST BUSHELER 08/15/2024 11:31 AM VEST BUSHELER Beni Wise DO CHEMISTRY Final Result [facility] [address] [place] [address], [facility] [address] [place] [address] * Zio XT (06/30/2024) 06/30/2024 Narrative Lynda Luong MBChB - 07/27/2024 12:00 AM VEST BUSHELER Agree with Findings. Please see scan document for full report. Signed By Lynda Luong MD Procedure Note Lynda Luong MBChB - 07/27/2024 Agree with Findings. Please see scan document for full report. Signed By Lynda Luong MD Dawit Ortiz MD CARDIAC SERVICES ORD Final Result * ANTI HCV (12/12/2014 8:52 AM CDT) HEPATITIS C ANTIBODY Non-Reacti ve Non-Reacti ve 12/12/2014 2:47 PM CDT [facility] Blood specimen (specimen) BLOOD SPECIMEN / Unknown Venipuncture / Unknown 12/12/2014 8:52 AM CDT 12/12/2014 9:01 AM CDT Narrative [facility] - 12/12/2014 2:47 PM CDT Antibodies to HCV not detected; does not exclude the possibility of exposure to HCV. us Carter Cedeno MD SEND OUTS Final Result [facility] [address] [place] [address], from Last 3 Months or Most Recently Relevant to Health Maintenance Insurance MEDICARE PB ONLY [facility] MEDICARE PART B HB ONLY MEDICARE PART A HB ONLY Advance Directives Documents on File Type Date Recorded Patient Exhaust Emissions Automotive Technician Expl anation POLST 11/10/2022 12:41 PM Full code * Full Code (Latest Code Status on File) Date Activated Date Inactivated Comments 06/09/2024 10:43 AM 06/09/2024 3:49 PM Question Answer Comments Code Status Discussion: Reviewed Preferences * Full Code Date Activated Date Inactivated Comments 02/22/2017 9:28 AM 02/23/2017 12:56 PM Care Teams Licensed Customs Broker Relationship Specialty Start Date End Date Beni Wise DO [address] [place] [address] PCP - General Family Practice 11/05/21 Victor M Guevara PA [address] [place] [address] Consulting Physician Physician Experimental Assembler 05/13/[address] [place] [address] Registered Dietitian Mucking Machine Operator 05/13/22
--- NOTE | 2024-09-20 18:29 | CRLHL7_ITS ---
For Patients: As a result of the Century Cures Act, medical imaging exams and procedure reports are released immediately into your electronic medical record. You may view this report before your referring provider. If you have questions, please contact your health care provider. Indication: Chest pain and cough Technique: Chest 2 views Comparison: Chest x-ray 04/01/2023 Findings/Impression: Cardiovascular and mediastinum: Normal heart size with aortic tortuosity and atherosclerotic calcification. Retrocardiac density suggesting a hiatal hernia. Lungs and pleural spaces: Lungs are clear. No sign of infiltrate or mass. No sign of pleural effusion. No pneumothorax. Bones and soft tissues: Diffuse idiopathic skeletal hyperostosis thoracic spine. Dictated by Robert Arias MD @ 09/20/2024 7:30:58 PM (Electronically Signed)
--- OUTSIDE RECORDS SUMMARY | 2024-09-20 18:35 | XMS_ITS | Clinical Summary ---
Author Organization [facility] Address [address] [place] [address] Care Team Providers Care Supervisor Intelligence Analyst Name Role Phone Beni Wise Primary Care Provider [phone] Victor M Guevara PA Unavailable [phone] Unavailable [phone] Allergies Active Allergy Reactions Criticality Noted Date [...] 2 diabetes mellitus without complication, unspecified whether exterminator termite insulin use (HC) Inject 2.5 mg subcutaneous [...] Description 09/13/2024 11:00 AM CDT Ancillary Procedure [address] [address] 09/13/2024 10:30 AM CDT Orders Only [address] [address] [facility] 09/13/[address] [address] Beni Wise DO Anticoagulation (OPA - Mounjaro & CBD gummies ) 09/13/2024 Anticoagulation (warfarin) [address] [address] 1, [facility] Anticoagulation 09/13/2024 Travel 09/01/[address] [address] Beni Wise DO Questions (Change Ozempic to Mounjaro) 09/01/[address] [address] Beni Wise DO Refill Request (oxybutynin XL (DITROPAN XL) 10 mg CR tablet/) 08/31/2024 10:00 AM EQUIPMENT OPERATOR/LABORER Office Visit [address] [address] Jacob Mcrae MD Musculoskeletal Problem (Follow up back pain ) 08/31/2024 Refill [facility] [address] [place] [address] Beni Wise DO Refill Request (Oxybutynin Xl) 08/31/2024 Travel 08/26/2024 Refill [facility] [address] [place] [address] Beni Wise DO Refill Request (Lorazepam) 08/23/2024 10:30 AM EQUIPMENT OPERATOR/LABORER Orders Only [facility] [address] [place] [address] [facility] 08/23/2024 Anticoagulation (warfarin) [facility] [address] [place] [address] 1, [facility] Anticoagulation 08/23/2024 Travel 08/21/2024 Telephone [facility] [address] [place] [address] Jacob Mcrae MD Appointment Request (Appt. 08-23-24?) 08/15/2024 10:35 AM EQUIPMENT OPERATOR/LABORER Office Visit [facility] [address] [place] [address] Beni Wise DO Medicare ANNUAL (subsequent) Visit (78 year old ) 08/14/2024 1:45 PM EQUIPMENT OPERATOR/LABORER Office Visit [facility] [address] [facility] [address] [place] [address] Navin Simms MD Derm Problem (Follow up) 08/14/2024 Travel 08/11/2024 11:30 AM EQUIPMENT OPERATOR/LABORER Office Visit [facility] [address] [facility] [address] [place] [address] Dawit Ortiz MD Follow Up (2 MONTH FOLLOW UP to Zio. /) 08/10/2024 Travel 08/06/2024 Travel 08/03/2024 11:00 AM EQUIPMENT OPERATOR/LABORER Office Visit [facility] [address] [place] [address] Davin Barreto DPM Toe Pain/problem (Toenail concerns) 08/03/2024 Travel 08/01/2024 Telephone [facility] [address] [facility] [address] [address] Dawit Ortiz MD Results (Heart Monitor ) 07/29/2024 Refill [facility] [address] [place] [address] Beni Wise DO Refill Request (Tamsulosin, Oxybutynin Xl) 07/28/2024 10:00 AM EQUIPMENT OPERATOR/LABORER Orders Only [facility] [address] [place] [address] [facility] 07/28/2024 Anticoagulation (warfarin) [facility] [address] [place] [address] 1, [facility] Anticoagulation 07/28/2024 Travel 07/28/2024 Refill [facility] [address] [place] [address] Beni Wise DO Refill Request (Omeprazole) 07/27/2024 10:35 AM EQUIPMENT OPERATOR/LABORER E-Visit [facility] [address] [place] [address] Beni Wise DO eVisit for Cough 07/27/2024 Refill [facility] [address] [place] [address] Beni Wise DO Refill Request (Alternative Requested -- WIXELA 250-50 INHUB) 07/27/2024 Travel 07/24/2024 10:35 AM EQUIPMENT OPERATOR/LABORER Telemedicine [facility] [address] [place] [address] Beni Wise DO 07/21/2024 Refill [facility] [address] [place] [address] Beni Wise DO Refill Request (Lorazepam) 07/19/2024 Travel 07/17/2024 2:00 PM EQUIPMENT OPERATOR/LABORER Office Visit [facility] [address] [address] Navin Simms MD Derm Problem (2 week follow up s/p Mohs, left ear 07/03/2024) 07/17/2024 Travel 07/13/2024 Travel 07/03/2024 12:30 PM EQUIPMENT OPERATOR/LABORER Procedure Only [facility] [address] [address] Navin Simms MD Procedure 07/02/2024 Travel 07/01/2024 Anticoagulation (warfarin) [facility] [address] [place] [address] 1, [facility] Anticoagulation 06/30/2024 11:15 AM EQUIPMENT OPERATOR/LABORER Office Visit [facility] [address] [address] 06/30/2024 8:30 AM EQUIPMENT OPERATOR/LABORER Office Visit [facility] [address] [place] [address] Beni Wise, Follow Up (06/09/2024 ) 06/30/2024 Telephone [facility] [address] [place] [address] Beni Wise DO Medication Management (fluticasone propion-salmeteroL (Advair Diskus) 250-50 mcg/Dose diskus inhaler/) 06/29/2024 Travel 06/28/2024 Travel 06/27/2024 8:40 AM EQUIPMENT OPERATOR/LABORER Office Visit [facility] [address] [address] Zabrina Segal, Derm Problem 06/27/2024 Telephone [facility] [address] [address] Zabrina Segal, Appointment 06/27/2024 Travel 06/24/2024 Refill [facility] [address] [place] [address] Beni Wise DO Refill Request (Dulera) 06/23/2024 Refill [facility] [address] [place] [address] Beni Wise, DO Refill Request (Lorazepam) 06/23/2024 Telephone [facility] [address] [place] [address] Beni Wise, DO Refill Request (LORazepam 1 [...] disease Maternal Grandmother Heart Disease Maternal Grandmother MS Heart Disease Mother coumadin Hypertension Mother Osteoporosis [...] on file Legal Sex Male 6:05 AM EQUIPMENT OPERATOR/LABORER Gender Identity Male 11/17/2023 4:46 PM CDT Sexual Orientation Straight 11/17/2023 4: 46 PM CDT Occupation Industry Job Start Date Job End Date Retired Not on file Not on file Not on file Obstetrics History Last Filed Vital Signs Vital Sign Reading Time Taken Comments Blood Pressure 129/71 08/31/2024 10:04 AM EQUIPMENT OPERATOR/LABORER Pulse 74 08/31/2024 10:04 AM EQUIPMENT OPERATOR/LABORER Temperature 36.6 C (97.8 F) 08/31/2024 10:04 AM EQUIPMENT OPERATOR/LABORER Respiratory Rate 16 06/13/2024 11:02 AM EQUIPMENT OPERATOR/LABORER Oxygen Saturation 94% 08/31/2024 10:04 AM EQUIPMENT OPERATOR/LABORER Inhaled Oxygen Concentration - - Weight 130.6 kg (288 lb) 08/15/2024 10:51 AM EQUIPMENT OPERATOR/LABORER Height 172.7 cm (5' 8) 08/15/2024 10:51 AM EQUIPMENT OPERATOR/LABORER Body Mass Index 43.79 08/15/2024 10:51 AM EQUIPMENT OPERATOR/LABORER Plan of Treatment Upcoming Encounters Date Type Department Care Team (Late st Contact Info) Description 09/21/2024 11:00 AM CDT Office Visit [facility] [address] [facility] [address] [place] [address] [place] [address] [facility] [address] [place] [address] 10/04/2024 1:00 PM CDT Telemedicine [facility] [address] [place] [address] Rg Johnson MD [address] [place] [address] 10/06/2024 10:45 AM CDT Office Visit [facility] [address] [place] [address] Lizandro Feng MD [address] [place] [address] 12/01/2024 10:00 AM CDT Office Visit [facility] [address] [place] [address] Jacob Mcrae MD [address] [place] [address] 01/01/2025 10:00 AM CDT Office Visit [facility] [address] [address] [place] [address] [place] [address] Health Maintenance Due Date Last Done Comments [...] range 2-3 INR,POCT Routine 08/23/2024 10:33 AM EQUIPMENT OPERATOR/LABORER Pulmonary embolism, bilateral (HC) Paroxysmal atrial fibrillation (HC) Anticoagulation monitoring, INR range 2-3 HEMOGLOBIN A1C MONITORING (POCT) Routine 08/15/2024 11:31 AM EQUIPMENT OPERATOR/LABORER Type 2 diabetes mellitus without complication, without long-term current use of insulin (HC) LIPID PANEL W REFLEX MEASURED LDL Routine 08/15/2024 11:31 AM EQUIPMENT OPERATOR/LABORER Type 2 diabetes mellitus without complication, without long-term current use of insulin (HC) BASIC METABOLIC PANEL Routine 08/15/2024 11:31 AM EQUIPMENT OPERATOR/LABORER Primary hypertension INR,POCT Routine 07/28/2024 9:52 AM EQUIPMENT OPERATOR/LABORER Pulmonary embolism, bilateral (HC) Paroxysmal atrial fibrillation (HC) Anticoagulation monitoring, INR range 2-3 INR,POCT Routine 06/30/2024 9:27 AM EQUIPMENT OPERATOR/LABORER Pulmonary embolism, bilateral (HC) Paroxysmal atrial fibrillation [...] Final Result * (ABNORMAL) INR - POCT [92269.2] - Standing Order (09/13/2024 10:31 AM CDT) Only the most recent of4 resultswithin the time period is included. INR 3.0(H) ratio [facility] Comment: INRs >2.9 may be falsely elevated [...] PROTHROMBIN TIMEP 35.4(H) 10.5 - 13.1 sec [facility] Comment: Point of care fingerstick Prothrombin Time/INR results may vary from venous Prothrombin Time/INR methodologies. Any results exhibiting inconsistency with the patient's clinical status should be repeated using a venous Prothrombin Time/INR method. Blood BLOOD SPECIMEN / Unknown 09/13/2024 10:31 AM CDT 09/13/2024 10:32 AM CDT Beni Wise DO LABORATORY Final Result [facility] [address] [place] [address], [facility] [address] [place] [address] * (ABNORMAL) LIPID PANEL W REFLEX MEASURED LDL (08/15/2024 11:31 AM EQUIPMENT OPERATOR/LABORER) [facility] Signature CHOLESTEROL, TOTAL 163 <200 mg/dL [facility] [...] LDL-C. Turner MELVIN et al. KURT. 2013;310(19): 5638-9358 (http://education.TriNovus/faq/TIC934) CHOL/HDLC RATIO 3.9 <5.0 (calc) [facility] NON HDL CHOLESTEROL 121 <130 mg/dL (calc) [facility] Comment: For patients with diabetes plus 1 major ASCVD risk factor, treating to a non-HDL-C goal of <100 mg/dL (LDL-C of <70 mg/dL) is considered a therapeutic option. Blood BLOOD SPECIMEN / Unknown 08/15/2024 11:31 AM EQUIPMENT OPERATOR/LABORER 08/15/2024 11:31 AM EQUIPMENT OPERATOR/LABORER [employer] CHEMISTRY Final Result Performing Organization Address City/[facility] Co de Phone Number [employer] [facility] [address] [place] [address], [facility] [address] [place] [address] * (ABNORMAL) POCT Hemoglobin A1C Monitoring (08/15/2024 11:31 AM EQUIPMENT OPERATOR/LABORER) Pathologist [facility] POC HEMOGLOBIN A1C 6.3(H) <6.0 % OF TOTAL HGB [facility] Comment: Any point of care results exhibiting inconsistency with the patient's clinical status should be repeated using a different testing method. Blood BLOOD SPECIMEN / Unknown 08/15/2024 11:31 AM EQUIPMENT OPERATOR/LABORER 08/15/2024 11:32 AM EQUIPMENT OPERATOR/LABORER Beni Blountludwin CHEMISTRY Final Result [facility] [address] [place] [address], [place] [phone] [facility] [address] [place] [address] * BASIC METABOLIC PANEL (08/15/2024 11:31 AM EQUIPMENT OPERATOR/LABORER) Pathologist [facility] GLUCOSE 73 65 - 99 mg/dL [facility] Comment: Fasting reference interval UREA NITROGEN (BUN) 15 7 - 25 mg/dL [facility] CREATININE 0.89 0.70 - 1.28 [...] BLOOD SPECIMEN / Unknown 08/15/2024 11:31 AM EQUIPMENT OPERATOR/LABORER 08/15/2024 11:31 AM EQUIPMENT OPERATOR/LABORER Beni Wise DO CHEMISTRY Final Result [employer] [facility] [address] [place] [address], [facility] [address] [place] [address] * Zio XT (06/30/2024) 06/30/2024 Narrative Lynad Luong MBChB - 07/27/2024 12:00 AM EQUIPMENT OPERATOR/LABORER Agree with Findings. Please see scan document for full report. Signed By Lynda Luong MD Procedure Note Lynda Luong MBChB - 07/27/2024 Agree with Findings. Please see scan document for full report. Signed By Lynda Luong MD Dawit Ortiz MD CARDIAC SERVICES ORD Final Result * ANTI HCV (12/12/2014 8:52 AM CDT) HEPATITIS C ANTIBODY Non-Reacti ve Non-Reacti ve 12/12/2014 2:47 PM CDT [facility] Blood specimen (specimen) BLOOD SPECIMEN / Unknown Venipuncture / Unknown 12/12/2014 8:52 AM CDT 12/12/2014 9:01 AM CDT Narrative [facility] - 12/12/2014 2:47 PM CDT Antibodies to HCV not detected; does not exclude the possibility of exposure to HCV. us Carter Cedeno MD SEND OUTS Final Result [facility] [address] [place] [address], from Last 3 Months or Most Recently Relevant to Health Maintenance Insurance MEDICARE PB ONLY [facility] MEDICARE PART B HB ONLY MEDICARE PART A HB ONLY Advance Directives Documents on File Type Date Recorded Patient Information Systems Project Manager Expl anation POLST 11/10/2022 12:41 PM Full code * Full Code (Latest Code Status on File) Date Activated Date Inactivated Comments 06/09/2024 10:43 AM 06/09/2024 3:49 PM Question Answer Comments Code Status Discussion: Reviewed Preferences * Full Code Date Activated Date Inactivated Comments 02/22/2017 9:28 AM 02/23/2017 12:56 PM Care Teams Supervisor Intelligence Analyst Relationship Specialty Start Date End Date Beni Wise DO [address] [place] [address] PCP - General Family Practice 11/05/21 Victor M Guevara PA [address] [place] [address] Consulting Physician Physician Manager Technical Support 05/13/[address] [place] [address] Registered Dietitian Field Cane Scale Clerk 05/13/22
--- OUTSIDE RECORDS SUMMARY | 2024-09-20 18:35 | XMS_ITS ---
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 - [id number]:21:11+00:00* No Health Concern Data Available - [id number]:21:11+00:00no Shanita Higuera - [id number]:21:11+00:00 * Summary Written by: Date Litzy Higuera September 14, 2024, 11:3 5 p.m. Litzy Higuera September 15, 2024, 1:01 p.m.
--- OUTSIDE RECORDS SUMMARY | 2024-09-20 18:35 | XMS_ITS | Continuity of Care Document ---
Author Organization [facility] Address [address] [address] [place] [address] Phone Care Team Providers Care Population Health Manager Name Role Phone Yvon Hunt MD Unavailable [...] Date Ugi Endo. w/EMR Offic/outpt E[facility]m [facility] Ugi Endo; W/remov Tumor/les-sn Level Iv-surg Path Gross/micro Offic/outpt E&m [facility] 45 9 [id number] Advance Directives Directive Yes / No Effective Date File Name No Information Encounters Encounter Description Practice Location Reason(s) For Visit Diagnoses Date Provider Providers Copied on Encounter [facility] [place], [address] [address], [place], [place], [id number], tel:[phone] [facility] No Information 4 Gilbert Sanz. [address] [facility], [address], [id number], [place]. tel:[phone] [facility] [place], [address] [address], [place], [place], [id number], [place] tel:[phone] [facility] Duodenal adenoma 4 Gilbert Sanz. [address] [facility], [facility] [address], [place], [id number], [place]. tel:[phone] Referring Provider: Yvon Nichole, [address], [address]. tel:[phone] [facility] [place], [address] [address], [place], [place], [address], [place] tel:[phone] [facility] No Information 4 Gilbert Sanz. [address] [facility], [address], [id number], [place]. [phone] [facility], [address] [address], [place], [address], [place] tel:[phone] [facility] Duodenal adenoma 4 Gilbert Sanz. [address] [facility], [address], [place], [place], [address], [place]. [phone] Offic/outpt E&m [facility], [address] [address], [place], [address], [place] tel:[phone] [facility] GI Symptoms or Concerns (chief complaint) Adenoma of small intestine 4 Pascual Garcia. [address] [facility], [facility] [address], [place], [id number], [place]. tel:[phone] Referring Provider: Turner Moon, [address] [place] [address], [place], [address]. tel:[phone] [facility], [address] [address], [place], [place], [address], [place] tel:[phone] [facility] No Information 4 Zac Carrillo. [address] [facility], [facility] [address], [place], [place], [id number], [place]. tel:[phone] [facility], [address] [address], [place], [address], [place] tel:[phone] [facility] Polyp-intes/r ect/stom-unc BehHiatal HerniaBenign Neoplasm Sm BowelHiatal Hernia 9 Zac Gilbert. [address] [facility], [facility] [address], [place], [id number], [place]. tel:[phone] Offic/outpt E&m [facility] 45 [facility], [address] [address], [place], [place], [address], [place] tel:[phone] [facility] Duodenal Polyp (chief complaint) Gastroesophag eal RefluxPolyp-i ntes/rect/sto m-unc Beh 9 Shahram Burns. [address] [facility], [place] [address], [place], [place], [address], [place]. tel:[phone] Family History Family Member Type Diagnosis Age [...] bi-directional interface ; Source: Other Registry Novel [id number], all formulations administered Note: [facility] bi-direct ional [...] Registry Payers Payer name Insurance type Covered libertarian ID Authoriza tion(s) Medicare NGS MB [id number] [facility] Medicare Supplement BL [id number] Social History Type Description Quantity Date Captured [...] had EGD and colonoscopy done in the [facility] system that has been uploaded into patient's [...]
--- NOTE | 2024-09-20 18:47 | ED_ITS ---
HPI - Chest Pain General Date Seen: 09/20/24 Chief Complaint: Chest Pain Stated Complaint: Chest pain Time Seen by Provider: 09/20/24 18:00 Source: patient Mode of arrival: ambulatory Limitations: no limitations History of Present Illness HPI narrative: patient is a 78-year-old male presenting to the emergency department for chest pain. He has a history of hypertension, hyperlipidemia, diabetes, AFib on warfarin. He states when he woke up this morning is feeling fine but then had episode where he got very dizzy. The symptoms eventually resolved and then about 16:00 he started having some midsternal chest pain placed as but go across his lower chest. He had difficulty describing the pain. He took 3 nitros at home without any improvement in his symptoms. He states the pain is now relatively mild but has not gone away completely. He has had pain like this before several months ago last only about 15 minutes but was much more severe. Other than that has never had symptoms like this before. Pain does not radiate anywhere. Denies fevers, chills, headache, lightheadedness, dizziness, weakness, numbness. has chronic shortness of breath and not notice any worsening symptoms of that. Did not notice any worsening pain with deep breathing. no other concerns noted at this time. Related Data Home Medications ?Medication ?Instructions ?Recorded ?Confirmed albuterol sulfate 90 mcg/actuation 1 - 2 puff inhalation Q4H PRN 12/31/22 09/20/24 aerosol inhaler atorvastatin 40 mg tablet 40 mg PO DAILY 12/31/22 09/20/24 calcium citrate 250 mg PO BID 12/31/22 09/20/24 cetirizine 10 mg tablet 10 mg PO DAILY 12/31/22 09/20/24 gabapentin 100 mg capsule 200 mg PO BID 12/31/22 09/20/24 lorazepam 1 mg tablet 0.5 mg PO BID 12/31/22 09/20/24 meclizine 25 mg tablet 25 mg PO TID PRN 12/31/22 09/20/24 melatonin 5 mg capsule 5 mg PO HS 12/31/22 09/20/24 omeprazole 20 mg capsule,delayed 20 mg PO DAILY 12/31/22 09/20/24 release oxybutynin chloride 5 mg 5 mg PO DAILY 12/31/22 09/20/24 tablet,extended release 24 hr semaglutide 2 mg/dose (8 mg/3 mL) 2 mg subcut QWEEK 12/31/22 09/20/24 subcutaneous pen injector (Ozempic) sennosides 8.6 mg tablet (senna) 17.2 mg PO DAILY 12/31/22 09/20/24 tamsulosin 0.4 mg capsule 0.4 mg PO DAILY 12/31/22 09/20/24 venlafaxine 75 mg capsule,extended 75 mg PO DAILY 12/31/22 09/20/24 release 24 hr warfarin 5 mg tablet 2.5 - 5 mg PO DAILY 12/31/22 09/20/24 acetaminophen 12/09/23 metoprolol succinate 25 mg 25 mg PO DAILY 12/09/23 09/20/24 tablet,extended release 24 hr mometasone-formoterol HFA 100 2 puff inhalation BID 12/09/23 09/20/24 mcg-5 mcg/actuation aerosol inhaler (Dulera) Allergies Allergy/AdvReac Type Severity Reaction Status Date / Time ibuprofen Allergy Intermediate Hives Verified 09/20/24 17:47 phenytoin Allergy Mild Rash Verified 09/20/24 17:47 buspirone (From BuSpar) AdvReac Intermediate Blurry Verified 09/20/24 17:47 Vision citalopram AdvReac Intermediate Dizziness Verified 09/20/24 17:47 lisinopril AdvReac Intermediate Verified 09/20/24 17:47 metformin AdvReac Intermediate Diarrhea Verified 09/20/24 17:47 Review of Systems Status of ROS Reports: 10 or more systems reviewed and unremarkable except as noted in History and below PFSH PFS Medical History Hypertension ?I10 - Essential (primary) hypertension (ICD-10) Atrial fibrillation ?I48.91 - Unspecified atrial fibrillation (ICD-10) Social History Smoking Status: Former smoker What tobacco products do you use: cigarettes Years smoked: 37 Smoking quit date/years: >15 years ago Do you use any of these nicotine containing products: None Second hand tobacco smoke exposure: No How often do you have a drink containing alcohol: never How often do you have six or more drinks on one occasion: Never AUDIT-C Alcohol total score: 0 Non-prescribed substance use: denies use service: No Exam Narrative Exam Narrative: Const: Well-nourished, Well-developed, in mild distress Eyes: PERRL, no conjunctival injection, and symmetrical lids HENT: Atraumatic external nose and ears. Moist mucous membranes. Neck: Symmetric, trachea midline, No thyromegaly. CVS: RRR, No murmurs or gallops. Peripheral pulses 2+ and equal in all extremities RESP: Unlabored respiratory effort. Clear to auscultation bilaterally. GI: Nontender/Nondistended, No rebound or guarding. MSK:Extremities w/o deformity, Normal Active ROM, chest nontender to palpation Skin: Warm, Dry. No rashes or lesions. Neuro: Normal Muscle tone, No focal neurological deficits. Psych: Awake, Alert, & Oriented x3. Appropriate mood and affect. Const Vital Signs, click to edit/add: Vital Signs - 24 hr 09/20/24 17:35 09/20/24 20:39 Temperature 98.4 F 97.3 F L Pulse Rate [Right Pulse Oximeter] 63 70 Respiratory Rate 18 18 Blood Pressure [Right Upper Arm] 130/74 115/69 Pulse Oximetry 94 93 Oxygen Delivery Method Room Air Room Air Course Vital Signs Vital signs: Initial Vital Signs Temperature 98.4 F 09/20/24 17:35 Temperature Source Temporal Artery Scan 09/20/24 17:35 Pulse Rate 63 09/20/24 17:35 Respiratory Rate 18 09/20/24 17:35 Blood Pressure 130/74 09/20/24 17:35 Blood Pressure Mean 92 09/20/24 17:35 Blood Pressure Position Sitting 09/20/24 17:35 Pulse Oximetry 94 09/20/24 17:35 Oxygen Delivery Method Room Air 09/20/24 17:35 Vital Signs Temperature 98.4 F 09/20/24 17:35 Pulse Rate 63 09/20/24 17:35 Respiratory Rate 18 09/20/24 17:35 Blood Pressure 130/74 09/20/24 17:35 Pulse Oximetry 94 09/20/24 17:35 Oxygen Delivery Method Room Air 09/20/24 17:35 Temperature 97.3 F L 09/20/24 20:39 Pulse Rate 70 09/20/24 20:39 Respiratory Rate 18 09/20/24 20:39 Blood Pressure 115/69 09/20/24 20:39 Pulse Oximetry 93 09/20/24 20:39 Oxygen Delivery Method Room Air 09/20/24 20:39 MDM - Chest Pain MDM Narrative Medical decision making narrative: this patient is a 78-year-old male presenting to the emergency department for chest pain. The differential diagnosis of chest pain is broad and includes common etiologies such as musculoskeletal strain, GERD, pneumonia, etc. More serious etiologies considered include PE, coronary artery disease, pneumothorax, aortic dissection, aortic aneurysm. Based on his description my concern for blood clots are low. He is otherwise stable in aortic dissection and aortic aneurysm seems unlikely. Will do a chest x-ray look for signs pneumonia or pneumothorax. Will also do an EKG and troponin to look for signs of ACS. COVID/flu / RSV, magnesium, CBC, BMP ordered. Will also order an INR for his warfarin. patient's EKG and troponin shows no concerning abnormalities. S was lab work shows no concerning findings. Chest x-ray reviewed by myself and the radiologist shows no concerning findings. Viral swabs are negative. On my review vital signs are stable throughout time in in the emergency department. Oximetry stayed in the mid to high 90s. equipment monitor phototypesetting showed no concerning arrhythmias. we will repeat troponin at the 3 hour nimisha due to his symptoms. It also came back negative. At this time his symptoms are greatly improved any appears well. I do feel safe discharging him home. I recommend he follows up with his human intelligence tomorrow which he already has an appointment for. I informed him to return to emergency department if symptoms seem to be getting worse again. He states he understands. Lab Data Labs: Lab Results 09/20/24 09/20/24 Range/Units 18:43 21:43 WBC 6.22 (4.50-11.00) K/uL RBC 3.44 L (4.30-5.90) m/uL Hgb 10.9 L (13.5-17.5) gm/dL Hct 34.1 L (37.0-53.0) % MCV 99 (80-100) fL MCH 32 (26-34) pg MCHC 32 (32-36) gm/dL RDW Coeff of Isela 14.2 (11.5-15.5) % Plt Count 194 (140-440) K/uL Neut % (Auto) 54.8 (42.0-72.0) % Lymph % (Auto) 25.2 (20-44) % Dade % (Auto) 17.4 H (0.0-11.0) % Eos % (Auto) 1.8 (0.0-7.0) % Baso % (Auto) 0.5 (0.0-3.0) % Neut # (Auto) 3.41 (1.7-7.0) K/uL Lymph # (Auto) 1.57 (0.90-2.90) K/uL Dade # (Auto) 1.10 H (0.00-0.90) K/UL Eos # (Auto) 0.11 (0.00-0.50) K/uL Baso # (Auto) 0.03 (0.00-0.30) K/uL Abs Immat Gran (auto) 0.02 (0.00-0.30) K/uL Imm/Tot Granulo (auto) 0.3 % Sodium 139 (135-149) mmol/L Potassium 4.6 (3.6-5.1) mmol/L Chloride 105 (96-114) mmol/L Carbon Dioxide 28 (20-32) mmol/L Anion Gap 6 L (7-15) mEq/L BUN 17 (7-30) mg/dL Creatinine 0.8 (0.5-1.5) mg/dL Estimated Creat Clear 59.85 Estimated GFR 91 ml/min Glucose 107 (60-115) mg/dL Calcium 8.9 (8.4-10.6) mg/dL Magnesium 2.1 (1.5-2.6) mg/dL Troponin I < 0.01 (0.01-0.04) ng/mL SARS-CoV-2 (PCR) Negative SARS-CoV-2 (Negative) Influenza Type A (PCR) Negative PCR FLU A (Negative) Influenza Type B (PCR) Negative PCR FLU B (Negative) RSV (PCR) Negative PCR RSV (Negative) POC Troponin I 0.00 L 0.00 L (0.01-0.04) ng/ml Imaging Data Chest x-ray: Attestation: I have reviewed the pertinent imaging results. Radiologist's impression: Cardiovascular and mediastinum: Normal heart size with aortic tortuosity and atherosclerotic calcification. Retrocardiac density suggesting a hiatal hernia. Lungs and pleural spaces: Lungs are clear. No sign of infiltrate or mass. No sign of pleural effusion. No pneumothorax. Bones and soft tissues: Diffuse idiopathic skeletal hyperostosis thoracic spine. Dictated by Robert Arias MD @ 09/20/2024 7:30:58 PM ECG Data Attestation: I personally reviewed and interpreted this ECG as follows: Prior ECG tracings: available for review Interpretation: Normal sinus rhythm with a first-degree AV block, rate of 67 beats per minute, normal intervals, normal axis, no ST or T-wave abnormalities. Appears similar to previous EKG on file Discharge Plan Discharge Clinical Impression: Atypical chest pain Patient Disposition: Home, Self-Care Condition: Stable Instructions: Noncardiac Chest Pain (ED) Additional Instructions: make sure to go to your cardiology appointment tomorrow. If chest pain worsens or you develop any other symptoms return immediately for re-evaluation. Prescriptions: No Action oxybutynin chloride 5 mg tablet extended release 24hr 5 mg PO DAILY omeprazole 20 mg capsule,delayed release(DR/EC) 20 mg PO DAILY Ozempic 2 mg/dose (8 mg/3 mL) pen injector 2 mg subcut QWEEK melatonin 5 mg capsule 5 mg PO HS venlafaxine 75 mg capsule,extended release 24hr 75 mg PO DAILY warfarin 5 mg tablet 2.5 - 5 mg PO DAILY Rx Instructions: Take 5mg Mon, Fri, 2.5mg all other days. tamsulosin 0.4 mg capsule 0.4 mg PO DAILY sennosides [senna] 8.6 mg tablet 17.2 mg PO DAILY cetirizine 10 mg tablet 10 mg PO DAILY albuterol sulfate 90 mcg/actuation HFA aerosol inhaler 1 - 2 puff INHALATION Q4H PRN calcium citrate 250 mg calcium tablet 250 mg PO BID atorvastatin 40 mg tablet 40 mg PO DAILY meclizine 25 mg tablet 25 mg PO TID PRN lorazepam 1 mg tablet 0.5 mg PO BID gabapentin 100 mg capsule 200 mg PO BID acetaminophen metoprolol succinate 25 mg tablet extended release 24 hr 25 mg PO DAILY Dulera 100-5 mcg/actuation HFA aerosol inhaler 2 puff inhalation BID Follow Up/Referrals: TETE MAC DO [Primary Care Provider] - Stand Alone Forms: [id number] Info Instructions
[2024-09-20 18:53] LABS: Basophils Absolute Auto 0.03 K/uL (0.00-0.30); Basophils Percent Auto 0.5 % (0.0-3.0); Eosinophils Absolute Auto 0.11 K/uL (0.00-0.50); Eosinophils Percent Auto 1.8 % (0.0-7.0); Hematocrit 34.1 % (37.0-53.0); Hemoglobin* 10.9 gm/dL (13.5-17.5); Immature Granulocytes Abs Auto 0.02 K/uL (0.00-0.30); Immature Granulocytes Pct Auto 0.3 %; Lymphocytes Absolute Auto 1.57 K/uL (0.90-2.90); Lymphocytes Percent Auto 25.2 % (20-44); Mean Corpuscular HGB Conc 32 gm/dL (32-36); Mean Corpuscular Hemoglobin 32 pg (26-34); Mean Corpuscular Volume 99 fL (80-100); Monocytes Percent Auto 17.4 % (0.0-11.0); Neutrophils Absolute Auto 3.41 K/uL (1.7-7.0); Neutrophils Percent Auto 54.8 % (42.0-72.0); Platelet Count* 194 K/uL (140-440); RDW Coefficient of Variation % 14.2 % (11.5-15.5); Red Blood Count 3.44 m/uL (4.30-5.90); White Blood Count* 6.22 K/uL (4.50-11.00)
[2024-09-20 18:56] LABS: Slide Review Reflex No
[2024-09-20 19:05] LABS: Chloride* 105 mmol/L (96-114)
[2024-09-20 19:06] LABS: Potassium* 4.6 mmol/L (3.6-5.1); Sodium* 139 mmol/L (135-149)
[2024-09-20 19:09] LABS: Anion Gap 6 mEq/L (7-15); Blood Urea Nitrogen* 17 mg/dL (7-30); Calcium* 8.9 mg/dL (8.4-10.6); Carbon Dioxide* 28 mmol/L (20-32); Creatinine* 0.8 mg/dL (0.5-1.5); Est. Creatinine Clearance* 59.85; Estimated Glomerular Filt Rate 91 ml/min; Glucose* 107 mg/dL (60-115); Magnesium* 2.1 mg/dL (1.5-2.6)
[2024-09-20 19:32] LABS: PCR FLU A Negative PCR FLU A (Negative); PCR FLU B Negative PCR FLU B (Negative); PCR RSV Negative PCR RSV (Negative); SARS PCR* Negative SARS-CoV-2 (Negative); Troponin I* < 0.01 ng/mL (0.01-0.04)
[2024-09-20 20:39] VITALS: BP 115/69; PULSE 70; RESP 18; TEMP 36.3; O2SAT 93
[2024-09-20 22:24] LABS: INR 2.18 (0.91-1.10); Prothrombin Time 25.4 Seconds
== END 2024-09-20 22:36 | disposition home or self-care (01) ==
PROVIDERS: Emergency Provider Student in an Organized Health Care Education/Training Program; PCP Student in an Organized Health Care Education/Training Program
DX: R07.89 Other chest pain (principal)
CPT/HCPCS: 36415; 71046; 80048; 83735; 84484; 85025; 85610; 87631; 93005; 99284

== ENCOUNTER 2025-03-27 13:45 | Outpatient (RCR) | payer MEDICARE, BC, SELFPAY | END 2025-03-27 15:05 | disposition home or self-care (01) | PROVIDERS: PCP Student in an Organized Health Care Education/Training Program; Visit Provider Family Medicine | DX: M51.362 Other intervertebral disc degeneration, lumbar region with discogenic back pain and lower extremity pain (principal); M54.16 Radiculopathy, lumbar region; M47.816 Spondylosis without myelopathy or radiculopathy, lumbar region; Z51.89 Encounter for other specified aftercare | CPT/HCPCS: 97110; 97140; 97162; 97530 ==